=== PATIENT | female | born 1945 | race Caucasian/White ===

== ENCOUNTER 2017-07-29 15:31 | Inpatient (IN) | payer MEDICARE, BC ==
[2017-07-29] MEDS ORDERED: cloNIDine HCL 0.1 MG TAB PO STA ×2 (16:13→18:44)
--- NOTE | 2017-07-29 16:13 | ED ---
General Adult HPI - General Chief complaint: Psychiatric Symptoms Stated complaint: Confusion Time Seen by Provider: 07/29/17 15:46 Source: patient Mode of arrival: wheelchair Limitations: no limitations - History of Present Illness Initial comments: Patient is a 72-year-old female who presents with her son with concerns for unsafe living situation. The patient lives alone, does not drive, and normally takes care of herself. This was with the son reveals that the patient has been becoming more and more forgetful over the last year but the rate at which she has become forgetful and has increased over the last 2 months. The patient states that she does not know why she is here. Further conversation with the patient's son reveals that the patient's water recently stopped working. Nikita was called to come and evaluate the patient's living situation and he states that there is a problem with the patient's well and that she will not be able to have running water at her home for at least 2 or 3 months. The patient states that that is untrue and that she is hopefully will be running tomorrow. That is clearly not the case. The patient does not seem to have much insight as to what her current living situation is, nor does she have any insight into the fact that she will likely need another living arrangement in order to stay safe. Further, the patients son reveals that on several occasions he has gone over to her house to find her living area dirty, with the knobs on her furnace turned off. The house has been very cold and the patient does not realize it. The patient's son has filed for guardianship however the cannot be hearing until August. On initial evaluation, the patient appears disheveled. She is alert and oriented 2, the patient thinks that it is currently 2006. - Related Data Home Medications Medication Instructions Recorded Confirmed No Known Home Medications [No 07/29/17 07/29/17 Known Home Medications] Allergies Allergy/AdvReac Type Severity Reaction Status Date / Time No Known Allergies Allergy Verified 07/29/17 16:47 Review of Systems ROS Statement: Those systems with pertinent positive or pertinent negative responses have been documented in the HPI. ROS Other: All systems not noted in ROS Statement are negative. Past Medical History Past Medical History: No Reported History History of Any Multi-Drug Resistant Organisms: None Reported Past Surgical History: No Surgical Hx Reported Past Psychological History: No Psychological Hx Reported Smoking Status: Never smoker Past Alcohol Use History: Rare Past Drug Use History: None Reported General Exam Limitations: no limitations General appearance: alert, in no apparent distress, other (The patient appears disheveled) Head exam: Present: atraumatic, normocephalic Respiratory exam: Present: normal lung sounds bilaterally, respiratory distress Cardiovascular Exam: Present: regular rate, normal rhythm GI/Abdominal exam: Present: soft. Absent: distended, tenderness Neurological exam: Present: alert, altered (Patient is oriented to person and place, the patient states that the year is 2006), normal gait Psychiatric exam: Present: normal affect, normal mood, other (Patient is not suicidal or homicidal however the patient does not seem to have insight into the fact that she is unable to stay at her current location as there is no running water and there will not be any running water for at least 2-3 months.) Skin exam: Present: warm, dry, intact Course Vital Signs 07/29/17 07/29/17 07/29/17 15:33 16:40 17:34 Temperature 97.9 F Pulse Rate 99 94 79 Respiratory 18 16 16 Rate Blood Pressure 228/109 214/102 196/93 O2 Sat by Pulse 99 98 97 Oximetry Medical Decision Making - Medical Decision Making Patient presents with her son who is concerned for the patient's safety. History and physical examination reveals signs of undiagnosed dementia. At this time, there is concern that the patient does not have insight into her current living situation, and the need to find another place to live. Patient will not have running water for 2-3 months states that she will be fine. The patient does not have any other plan to take care of herself. Basic labs will be sent, EPS was notified. On initial evaluation, the patient appears stable however her blood pressure is hypertensive at 228/109. Patient was evaluated by psychiatry, they will not admit the patient. Blood evaluation of this patient shows evidence of urinary tract infection. Given the suspected dementia and he wants the PICC line, visual be admitted for IV antibiotics. I discussed this case with Dr. Georges who accepted admission of this patient. - Lab Data Result diagrams: 07/29/17 16:45 07/29/17 16:45 Lab Results 07/29/17 07/29/17 07/29/17 Range/Units 16:45 16:45 16:47 WBC 10.4 (3.8-10.6) k/uL RBC 5.00 (3.80-5.40) m/uL Hgb 14.7 (11.4-16.0) gm/dL Hct 46.0 (34.0-46.0) % MCV 92.0 (80.0-100.0) fL MCH 29.3 (25.0-35.0) pg MCHC 31.9 (31.0-37.0) g/dL RDW 13.2 (11.5-15.5) % Plt Count 243 (150-450) k/uL Neutrophils % 72 % Lymphocytes % 20 % Monocytes % 4 % Eosinophils % 1 % Basophils % 1 % Neutrophils # 7.5 (1.3-7.7) k/uL Lymphocytes # 2.1 (1.0-4.8) k/uL Monocytes # 0.5 (0-1.0) k/uL Eosinophils # 0.1 (0-0.7) k/uL Basophils # 0.1 (0-0.2) k/uL Sodium 136 L (137-145) mmol/L Potassium 4.6 (3.5-5.1) mmol/L Chloride 97 L (98-107) mmol/L Carbon Dioxide 26 (22-30) mmol/L Anion Gap 13 mmol/L BUN 13 (7-17) mg/dL Creatinine 0.59 (0.52-1.04) mg/dL Est GFR (MDRD) Af Amer >60 (>60 ml/min/1.73 sqM) Est GFR (MDRD) Non-Af >60 (>60 ml/min/1.73 sqM) Glucose 475 H* (74-99) mg/dL Calcium 10.2 (8.4-10.2) mg/dL Total Bilirubin 0.4 (0.2-1.3) mg/dL AST 22 (14-36) U/L ALT 34 (9-52) U/L Alkaline Phosphatase 88 (38-126) U/L Total Protein 7.8 (6.3-8.2) g/dL Albumin 4.3 (3.5-5.0) g/dL Urine Color Light Yellow Urine Appearance Cloudy H (Clear) Urine pH 5.5 (5.0-8.0) Ur Specific Loraine 1.029 (1.001-1.035) Urine Protein Negative (Negative) Urine Glucose (UA) 4+ H (Negative) Urine Ketones Negative (Negative) Urine Blood Negative (Negative) Urine Nitrite Negative (Negative) Urine Bilirubin Negative (Negative) Urine Urobilinogen <2.0 (<2.0) mg/dL Ur Leukocyte Esterase Large H (Negative) Urine RBC 22 H (0-5) /hpf Urine WBC 52 H (0-5) /hpf Ur Squamous Epith Cells 4 (0-4) /hpf Urine Bacteria Rare H (None) /hpf Urine Mucus Rare H (None) /hpf Disposition Clinical Impression: Hypertension, Hyperglycemia, Urinary tract infection [facility] Condition[facility] Good Referrals: None,Stated [Primary Care Provider] - 1-2 days Decision to Admit Reason: Admit from EC - Out of Hospital Transfer - Req. Specs Out of Hospital Transfer - Requested Specifics: Other Non-Acute
[2017-07-29 16:51] LABS: Basophils # (A) 0.1 k/uL (0-0.2); Basophils % (A) 1 %; Eosinophils # (A) 0.1 k/uL (0-0.7); Eosinophils % (A) 1 %; HGB 14.7 gm/dL (11.4-16.0); Lymphocytes # (A) 2.1 k/uL (1.0-4.8); Lymphocytes % (A) 20 %; MCH 29.3 pg (25.0-35.0); MCHC 31.9 g/dL (31.0-37.0); Mean Platelet Volume 8.2; Monocytes # (A) 0.5 k/uL (0-1.0); Monocytes % (A) 4 %; Neutrophils # (A) 7.5 k/uL (1.3-7.7); Neutrophils % (A) 72 %; Platelet Count 243 k/uL (150-450); RDW 13.2 % (11.5-15.5); WBC 10.4 k/uL (3.8-10.6)
[2017-07-29 17:01] LABS: Appearance,Urine Cloudy (Clear); Bacteria,Urine Rare /hpf; Bilirubin,Urine Negative (Negative); Blood,Urine Negative (Negative); Color,Urine Light Yellow; Glucose,Urine (UA) 4+ (Negative); Ketones,Urine Negative (Negative); Leukocyte Esterase,Urine Large (Negative); Mucus,Urine Rare /hpf; Nitrite,Urine Negative (Negative); PH, Urine 5.5 (5.0-8.0); Protein,Urine Negative (Negative); RBC,Urine 22 /hpf (0-5); Specific Gravity,Urine 1.029 (1.001-1.035); Squamous Epithelial Cell,Urine 4 /hpf (0-4); Urobilinogen,Urine <2.0 mg/dL (<2.0); WBC,Urine 52 /hpf (0-5)
[2017-07-29 17:05] LABS: ALT 34 U/L (9-52); AST 22 U/L (14-36); Albumin 4.3 g/dL (3.5-5.0); Alkaline Phosphatase 88 U/L (38-126); Anion Gap 13 mmol/L; Blood Urea Nitrogen 13 mg/dL (7-17); Calcium 10.2 mg/dL (8.4-10.2); Carbon Dioxide 26 mmol/L (22-30); Chloride 97 mmol/L (98-107); Potassium 4.6 mmol/L (3.5-5.1); Sodium 136 mmol/L (137-145); Total Bilirubin 0.4 mg/dL (0.2-1.3); Total Protein 7.8 g/dL (6.3-8.2)
[2017-07-29 17:13] LABS: Glucose 475 mg/dL (74-99)
[2017-07-29] MEDS ORDERED: NALOXONE 0.4 MG/ML 1 ML VIAL IV PRN (17:42)
[2017-07-29] MEDS ORDERED: cefTRIAXone IN SWFI 1,000 MG/10 ML SYRINGE IVP ONE (17:45)
[2017-07-29] MEDS ORDERED: ACETAMINOPHEN TAB 325 MG TAB PO PRN (18:22)
[2017-07-29] MEDS ORDERED: DONEPEZIL 5 MG TAB PO STA (18:25)
--- NOTE | 2017-07-29 18:42 | P.HPIM ---
History of Present Illness H&P Date: 07/29/17 Chief Complaint: Change in mental status 72-year-old female who presents with her son today with increasing confusion and forgetfullness. Patient has not been able to take care of herself recently. She has been having issues with her memory over the last year and a half but has not seen any physician over the last several years. Her son stated that her memory has been getting worse over the last 2 months. The patient lives alone, does not drive, a neighbor takes her to the grocery store for shopping usually. The patient states that she does not know why she is here. Most of this history was taken from her son as patient's memory and mental status preclude any meaningful history. Son reveals that the patient's water recently stopped working as the pipes froze. Nikita was called to come and evaluate the patient's living situation and he states that there is a problem with the patient's well and that she will not be able to have running water at her home for at least 2 or 3 months. The patient states that that is untrue and that is actually not the case. Further, the patients son reveals that on several occasions he has gone over to her house to find her living area dirty, with the knobs on her furnace turned off. The house has been very cold and the patient does not realize it, when asked about that she denied the house was cold even though the weather's temp is below freezing. The patient's son has filed for guardianship however the cannot be hearing until August. Patient denied having any recent illness, fevers or chills, any pain, shortness of breath, nausea or vomiting, diarrhea, no urinary symptoms. Review of Systems 12 point review of system was performed, negative except for HPI Past Medical History Past Medical History: No Reported History History of Any Multi-Drug Resistant Organisms: None Reported Past Surgical History: No Surgical Hx Reported Past Psychological History: No Psychological Hx Reported Smoking Status: Never smoker Past Alcohol Use History: Rare Past Drug Use History: None Reported - Past Family History Sister(s) Family Medical History: Dementia (Sr. from dementia) Medications and Allergies Home Medications Medication Instructions Recorded Confirmed Type No Known Home Medications [No 07/29/17 07/29/17 History Known Home Medications] Allergies Allergy/AdvReac Type Severity Reaction Status Date / Time No Known Allergies Allergy Verified 07/29/17 16:47 Physical Exam Vitals: Vital Signs Temp Pulse Resp BP Pulse Ox 07/29/17 17:34 79 16 196/93 97 07/29/17 16:40 94 16 214/102 98 07/29/17 15:33 97.9 F 99 18 228/109 99 Intake and Output 07/29/17 07/29/17 07/29/17 06:59 14:59 22:59 Other: Weight 63.503 kg Patient Weight 07/30/17 06:59 Weight 63.503 kg Constitutional: No acute distress, conversant, pleasant Eyes:Anicteric sclerae, moist conjunctiva, no lid-lag, PERRLA, ENMT: Oropharynx clear, no erythema, exudates Neck: Supple, FROM, no masses, or JVD, No carotid bruits, No thyromegaly Lungs: Clear to auscultation, Clear to percussion, Normal respiratory effort, no accessory muscle use Cardiovascular: Heart regular in rate and rhythm, No murmurs, gallops, or rubs, No peripheral edema Abdominal: Soft, Nontender, no guarding, rebound or rigidity, Normoactive bowel sounds, No hepatomegaly, No splenomegaly, No palpable mass Skin: Normal temperature, tone, texture, turgor, no induration, No subcutaneous nodules, No rash, lesions, No ulcers Extremities: No digital cyanosis, No clubbing, Pedal pulses intact and symmetrical, Radial pulses intact and symmetrical, No calf tenderness Psychiatric: Alert and oriented to person, place and time, but son reported that patient said it was 2007 earlier, appropriate affect, impaired judgement Neuro: Muscles Strength 5/5 in all 4 extremities, Sensation to light touch grossly present throughout, Cranial nerves II-XII grossly intact, no focal sensory deficits Results CBC & Chem 7: 07/29/17 16:45 07/29/17 16:45 Labs: Abnormal Lab Results - Last 24 Hours (Table) 07/29/17 07/29/17 Range/Units 16:45 16:47 Sodium 136 L (137-145) mmol/L Chloride 97 L (98-107) mmol/L Glucose 475 H* (74-99) mg/dL Urine Appearance Cloudy H (Clear) Urine Glucose (UA) 4+ H (Negative) Ur Leukocyte Esterase Large H (Negative) Urine RBC 22 H (0-5) /hpf Urine WBC 52 H (0-5) /hpf Urine Bacteria Rare H (None) /hpf Urine Mucus Rare H (None) /hpf Assessment and Plan Plan: #1 Acute delirium/metabolic encephalopathy: Likely secondary to combination of hyperglycemia and acute urinary tract infection Admit to MedSurg Labs reviewed Start ceftriaxone 1 g IV daily Urine cultures Check HbA1c, no known history of diabetes Start Lantus 10 units daily plus sliding scale insulin #2 Chronic dementia: Patient has not received any treatment for dementia, does not actually carry a diagnosis of dementia because she has not been following up with any physician for many years Start Aricept and Namenda #3 Disposition: Unsafe to go back home Son is working currently on guardianship Consult social work for placement #4 DVT prophylaxis SCDs
[2017-07-29] MEDS ORDERED: INSULIN DETEMIR 100 UNIT/ML 10 ML VIAL SQ SCH (21:00)
[2017-07-29 21:09] LABS: Glucose,Whole Blood 423 mg/dL (75-99)
[2017-07-29] MEDS: MEMANTINE 10 MG TAB PO SCH (21:25)
[2017-07-29] MEDS: INSULIN ASPART 100 UNIT/ML 1 ML 10 ML VIAL SQ SCH (21:26)
[2017-07-30 07:19] LABS: Glucose,Whole Blood 191 mg/dL (75-99)
[2017-07-30] MEDS: INSULIN ASPART 100 UNIT/ML 1 ML 10 ML VIAL SQ SCH ×5 (07:59→22:09)
[2017-07-30] MEDS: MEMANTINE 10 MG TAB PO SCH (08:48)
[2017-07-30 09:02] LABS: Basophils # (A) 0.1 k/uL (0-0.2); Basophils % (A) 1 %; Eosinophils # (A) 0.1 k/uL (0-0.7); Eosinophils % (A) 2 %; HGB 13.8 gm/dL (11.4-16.0); Lymphocytes # (A) 1.9 k/uL (1.0-4.8); Lymphocytes % (A) 23 %; MCH 29.5 pg (25.0-35.0); MCHC 32.1 g/dL (31.0-37.0); MCV 91.8 fL (80.0-100.0); Mean Platelet Volume 8.3; Monocytes # (A) 0.4 k/uL (0-1.0); Monocytes % (A) 5 %; Neutrophils # (A) 5.6 k/uL (1.3-7.7); Neutrophils % (A) 68 %; Platelet Count 229 k/uL (150-450); RBC 4.69 m/uL (3.80-5.40); RDW 12.8 % (11.5-15.5); WBC 8.3 k/uL (3.8-10.6)
[2017-07-30 09:31] LABS: Blood Urea Nitrogen 15 mg/dL (7-17); Carbon Dioxide 27 mmol/L (22-30); Chloride 99 mmol/L (98-107); Glucose 269 mg/dL (74-99); Magnesium 1.7 mg/dL (1.6-2.3); Phosphorus 3.6 mg/dL (2.5-4.5); Potassium 4.1 mmol/L (3.5-5.1)
[2017-07-30 09:48] LABS: Anion Gap 13 mmol/L; Calcium 9.4 mg/dL (8.4-10.2); Sodium 139 mmol/L (137-145)
[2017-07-30 12:11] LABS: Glucose,Whole Blood 238 mg/dL (75-99)
[2017-07-30 15:36] LABS: Hemoglobin A1C 11.4 % (4.0-6.0)
--- NOTE | 2017-07-30 15:48 | P.PN ---
Subjective Progress Note Date: 07/30/17 Principal diagnosis: Confusion. Still confused Objective - Vital Signs Vital signs: Vital Signs Temp 98.1 F 07/30/17 07:00 Pulse 75 07/30/17 08:00 Resp 18 07/30/17 08:00 BP 182/87 07/30/17 07:00 Pulse Ox 96 07/30/17 07:00 Intake & Output 07/29/17 07/30/17 07/30/17 18:59 06:59 18:59 Intake Total 240 Balance 240 Weight 63.503 kg Intake: Oral 240 Other: # Voids 2 - Exam Constitutional: No acute distress, conversant, pleasant Eyes:Anicteric sclerae, moist conjunctiva, no lid-lag, PERRLA, ENMT: Oropharynx clear, no erythema, exudates Neck: Supple, FROM, no masses, or JVD, No carotid bruits, No thyromegaly Lungs: Clear to auscultation, Clear to percussion, Normal respiratory effort, no accessory muscle use Cardiovascular: Heart regular in rate and rhythm, No murmurs, gallops, or rubs, No peripheral edema Abdominal: Soft, Nontender, no guarding, rebound or rigidity, Normoactive bowel sounds, No hepatomegaly, No splenomegaly, No palpable mass Skin: Normal temperature, tone, texture, turgor, no induration, No subcutaneous nodules, No rash, lesions, No ulcers Extremities: No digital cyanosis, No clubbing, Pedal pulses intact and symmetrical, Radial pulses intact and symmetrical, No calf tenderness Psychiatric: Alert and oriented to person, place and time, but son reported that patient said it was 2007 earlier, appropriate affect, impaired judgement Neuro: Muscles Strength 5/5 in all 4 extremities, Sensation to light touch grossly present throughout, Cranial nerves II-XII grossly intact, no focal sensory deficits - Labs CBC & Chem 7: 07/30/17 08:30 07/30/17 08:30 Labs: Abnormal Lab Results - Last 24 Hours (Table) 07/29/17 07/29/17 07/29/17 Range/Units 16:45 16:47 21:08 Sodium 136 L (137-145) mmol/L Chloride 97 L (98-107) mmol/L Glucose 475 H* (74-99) mg/dL POC Glucose (mg/dL) 423 H (75-99) mg/dL Urine Appearance Cloudy H (Clear) Urine Glucose (UA) 4+ H (Negative) Ur Leukocyte Esterase Large H (Negative) Urine RBC 22 H (0-5) /hpf Urine WBC 52 H (0-5) /hpf Urine Bacteria Rare H (None) /hpf Urine Mucus Rare H (None) /hpf 07/30/17 07/30/17 07/30/17 Range/Units 07:17 08:30 12:07 Sodium (137-145) mmol/L Chloride (98-107) mmol/L Glucose 269 H (74-99) mg/dL POC Glucose (mg/dL) 191 H 238 H (75-99) mg/dL Urine Appearance (Clear) Urine Glucose (UA) (Negative) Ur Leukocyte Esterase (Negative) Urine RBC (0-5) /hpf Urine WBC (0-5) /hpf Urine Bacteria (None) /hpf Urine Mucus (None) /hpf Microbiology - Last 24 Hours (Table) 07/29/17 17:37 Urine Culture - Preliminary Urine,Voided Assessment and Plan Plan: #1 Acute delirium/metabolic encephalopathy: Likely secondary to combination of hyperglycemia and acute urinary tract infection Improving Labs reviewed Continue ceftriaxone 1 g IV daily Follow urine cultures Check HbA1c, no known history of diabetes Increase Lantus to 12 units daily plus start Insulin aspart 5 units tid. Continue sliding scale insulin with blood sugar checks every AC and HS #2 Accelerated HTN: Start lisinopril/HCTZ 10/12.5 mg daily. #2 Chronic dementia: Continue Aricept and Namenda #3 Disposition: Unsafe to go back home Son has a court appointment for guardianship tomorrow. Social work for placement #4 DVT prophylaxis SCDs
[2017-07-30] MEDS: LISINOPRIL-HCTZ 10-12.5 MG 1 EACH TAB PO SCH (16:26)
[2017-07-30] MEDS: cefTRIAXone IN SWFI 1,000 MG/10 ML SYRINGE IVP SCH (16:42)
[2017-07-30 17:27] LABS: Glucose,Whole Blood 213 mg/dL (75-99)
[2017-07-30 20:54] LABS: Glucose,Whole Blood 173 mg/dL (75-99)
[2017-07-30] MEDS: INSULIN DETEMIR 100 UNIT/ML 10 ML VIAL SQ SCH (22:00)
[2017-07-30] MEDS ORDERED: HALOPERIDOL 1 MG TAB PO STA (23:54)
[2017-07-31 07:30] LABS: Glucose,Whole Blood 168 mg/dL (75-99)
[2017-07-31] MEDS: LISINOPRIL-HCTZ 10-12.5 MG 1 EACH TAB PO SCH (08:03)
[2017-07-31] MEDS: MEMANTINE 10 MG TAB PO SCH (08:03)
[2017-07-31] MEDS: INSULIN ASPART 100 UNIT/ML 1 ML 10 ML VIAL SQ SCH ×7 (08:03→22:04)
--- NOTE | 2017-07-31 08:59 | CDI ---
Last Revision, June 2017 Documentation Clarification Form Date: 07/31/2017 7:49:00 AM From: Gauri Phipps Admit Date: 07/29/2017 5:42:00 PM Patient Name: Jacqueline Del Valle Visit Number: [id number] ATTENTION: The Clinical Documentation Specialists (CDI) and [facility] Coding Staff appreciate your assistance in clarifying documentation. Please respond to the clarification below the line at the bottom and electronically sign. The CDI & [facility] Coding staff will review the response and follow-up if needed. Please note: Queries are made part of the Legal Health Record. If you have any questions, please contact the author of this message via ITS. Dr. Wendy Georges, Hyperglycemia was charted in the H&P on 07/29/17 and in the progress note on . History/Risk Factors: no known history of diabetes, HTN, dementia Clinical Indicators: Documented 'acute delirium/metabolic encephalopathy likely secondary to combination of hyperglycemia and ac uti' Labs: glucose 475 on admission, Hgb A1c 11.4 UA: 4+ glucose Treatment: Lantus ordered daily and being adjusted Novolog sliding scale ordered AC and HS blood sugar checks Consult to [employer] Consistent Carbohydrate Diet In order to capture the severity of Illness and necessary documentation specificity, please clarify: new onset DM Type 1 new onset DM Type 2 Other, please specify Unable to Determine Please continue to document in your progress notes and discharge summary in order to capture severity of illness and risk of mortality. Include clinical findings that support your diagnosis. Type II diabetes MTDD
[2017-07-31 09:08] LABS: HCT 43.8 % (34.0-46.0); HGB 14.5 gm/dL (11.4-16.0); MCH 29.7 pg (25.0-35.0); MCHC 33.1 g/dL (31.0-37.0); MCV 89.8 fL (80.0-100.0); Mean Platelet Volume 8.6; Platelet Count 268 k/uL (150-450); RBC 4.88 m/uL (3.80-5.40); RDW 12.4 % (11.5-15.5); WBC 13.2 k/uL (3.8-10.6)
[2017-07-31 09:24] LABS: Anion Gap 10 mmol/L; Blood Urea Nitrogen 18 mg/dL (7-17); Carbon Dioxide 30 mmol/L (22-30); Chloride 97 mmol/L (98-107); Glucose 246 mg/dL (74-99); Magnesium 1.8 mg/dL (1.6-2.3); Phosphorus 4.6 mg/dL (2.5-4.5); Sodium 137 mmol/L (137-145)
[2017-07-31 10:22] VITALS: BMI 23.3
[2017-07-31 13:03] LABS: Glucose,Whole Blood 232 mg/dL (75-99)
[2017-07-31] MEDS: cefTRIAXone IN SWFI 1,000 MG/10 ML SYRINGE IVP SCH (16:59)
[2017-07-31 17:08] LABS: Glucose,Whole Blood 216 mg/dL (75-99)
[2017-07-31 20:48] LABS: Glucose,Whole Blood 143 mg/dL (75-99)
[2017-07-31] MEDS: INSULIN DETEMIR 100 UNIT/ML 10 ML VIAL SQ SCH (22:05)
[2017-08-01 00:21] VITALS: RESP 16
[2017-08-01 07:19] LABS: Glucose,Whole Blood 157 mg/dL (75-99)
[2017-08-01] MEDS: MEMANTINE 10 MG TAB PO SCH (07:52)
[2017-08-01] MEDS: INSULIN ASPART 100 UNIT/ML 1 ML 10 ML VIAL SQ SCH ×4 (07:52→12:36)
[2017-08-01] MEDS: LISINOPRIL-HCTZ 10-12.5 MG 1 EACH TAB PO SCH (07:52)
[2017-08-01 08:01] VITALS: BP 114/65; PULSE 85; TEMP 98.2
--- NOTE | 2017-08-01 11:18 | P.DS ---
Providers Date of admission: 07/29/17 17:42 Expected date of discharge: 08/01/17 Attending physician: Wendy Georges MD Primary care physician: Stated None Hospital Course: 72 year old female with poor OP follow up and has not seen a physician for 7 years now, presented due to worsening confusion and forgetfulness, per the patient's son her living situation has been deteriorating, patient lives alone and gets some assistance from the neighbor to go to the grocery stores. However patient's son reports that her house is usually filthy, and he had multiple incidences where he would find furnaces off, or patient's not having running water for maintenance and frozen pipes. The house would be freezing cold and generally improved for situation with the patient relies. Patient has no insight about the above problems, she cannot comment when asked regarding orientation she is confused regarding her place, time. Her son is in the process of getting guardianship papers. Patient initial workup in the ER suggested Acute urinary tract infection resulting in acute metabolic encephalopathy. This was treated with Rocephin, urine cultures were contaminated. Patient has received 3 days of Rocephin. Acute metabolic encephalopathy secondary to underlying infection New-onset diabetes mellitus type 2 with A1c of 11.4 requiring insulin therapy for now New onset hypertension patient was started on antihypertensive medications Cognitive impairment possibly underlying dementia, patient will need to be evaluated as an outpatient by neurology or parachute packer in 1-2 weeks postdischarge once she is back to her baseline Patient was seen and examined on day of discharge, she is pleasantly confused denies any chest pain or trouble breathing denies any headache denies any abdominal pain nausea or vomiting. She is tolerating her diet and actually eating all the meals that's provided. Denies any problems with urination or bowel movement. Constitutional: vital signs stable, Not in acute distress, pleasant, conversant Lungs: Clear to auscultation bilaterally, clear to percussion, normal respiratory effort no use of accessory muscles Cardiovascular: Regular rate and rhythm, no murmurs, no gallops, no rubs, no peripheral edema Gastrointestinal: Soft, no tenderness to palpation, no palpable hepatosplenomegally, bowel sounds positive Extremities: No digital cyanosis or clubbing, peripheral pulses palpable and equal over bilateral radial arteries and dorsalis pedis artery, no calf muscle tenderness Psych: Alert, oriented to person only Patient to see if her last visit of Samantha today prior to discharge, later will be discharged to [facility], son obtaining guardianship papers Continue on insulin therapy for new onset diabetes Patient is being discharged in stable clinical condition 42 minutes were spent discharging this patient, and more than 50% of the time was spent in counseling the patient and family and in coordinating care. Patient Condition at Discharge: Stable Plan - Discharge Summary New Discharge Prescriptions: New Insulin Aspart [NovoLOG (formulary)] 5 unit SQ AC-TID vial Insulin Aspart [NovoLOG (formulary)] 0 unit SQ ACHS vial Insulin Detemir [Levemir] 12 unit SQ HS syr Lisinopril-Hctz 10-12.5 mg [Zestoretic 10-12.5] 1 each PO DAILY tab Memantine [Namenda] 10 mg PO DAILY tab Discharge Medication List Insulin Aspart [NovoLOG (formulary)] 0 unit SQ ACHS vial 08/01/17 [Rx] Insulin Aspart [NovoLOG (formulary)] 5 unit SQ AC-TID vial 08/01/17 [Rx] Insulin Detemir [Levemir] 12 unit SQ HS syr 08/01/17 [Rx] Lisinopril-Hctz 10-12.5 mg [Zestoretic 10-12.5] 1 each PO DAILY tab 08/01/17 [ Rx] Memantine [Namenda] 10 mg PO DAILY tab 08/01/17 [Rx] Follow up Appointment(s)/Referral(s): None,Stated [Primary Care Provider] - 1-2 days Patient Instructions/Handouts: Dementia (GEN), How to Check Your Blood Sugar ( GEN), Foot Care for People with Diabetes (GEN), Type 2 Diabetes in Adults (GEN) , Basic Carbohydrate Counting (GEN), DASH Eating Plan (GEN), Hypertension (DC) Activity/Diet/Wound Care/Special Instructions: activity as tolerated diabetic diet Discharge Disposition: TRANSFER TO SNF/ECF
[2017-08-01] MEDS ORDERED: cefTRIAXone IN SWFI 1,000 MG/10 ML SYRINGE IVP SCH (12:00)
[2017-08-01 12:34] LABS: Glucose,Whole Blood 186 mg/dL (75-99)
== END 2017-08-01 15:09 | DRG 689 ==
LOC: EC 15:31 → EEVIPCON 17:42 → 4MS4W 17:42
PROVIDERS: ADMIT Internal Medicine; ATTEND Internal Medicine
DX: N39.0 Urinary tract infection, site not specified (principal); G93.41 Metabolic encephalopathy; E11.65 Type 2 diabetes mellitus with hyperglycemia; F05 Delirium due to known physiological condition; I10 Essential (primary) hypertension; Z79.4 Long term (current) use of insulin; Z82.0 Family history of epilepsy and other diseases of the nervous system; F03.90 Unspecified dementia, unspecified severity, without behavioral disturbance, psychotic disturbance, mood disturbance, and anxiety
CPT/HCPCS: 36415; 80048; 80053; 81001; 82075; 83036; 83735; 84100; 85025; 85027; 87086; 96374; 99285

== ENCOUNTER 2017-09-11 08:30 | Inpatient (IN) | payer MEDICARE, BC ==
[2017-09-11] MEDS ORDERED: ACETAMINOPHEN TAB 500 MG TAB PO STA (09:00)
[2017-09-11] MEDS ORDERED: IBUPROFEN 600 MG TAB PO STA (09:00)
--- NOTE | 2017-09-11 09:04 | ED ---
General Adult HPI - General Chief complaint: Nausea/Vomiting/Diarrhea Stated complaint: Flu symptoms Time Seen by Provider: 09/11/17 08:50 Source: patient, RN notes reviewed, old records reviewed Mode of arrival: EMS Limitations: no limitations - History of Present Illness Initial comments: This patient is a 72-year-old female presents emergency department today chief complaint of fever, weakness, episodes of nausea and vomiting. Patient currently lives in a adult foster facility. Patient reports that she has no specific pain at this time, denies any chest pain or shortness of breath. She denies any specific abdominal pain. Patient reports that she has little appetite.Patient denies any recent shortness of breath, chest pain, back pain, abdominal pain, nausea vomiting, numbness or tingling, dysuria or hematuria, constipation or diarrhea, headaches or visual changes, or any other current symptoms. - Related Data Home Medications Medication Instructions Recorded Confirmed ALPRAZolam [Xanax] 0.25 mg PO DAILY PRN 09/11/17 09/11/17 Cyanocobalamin (Vitamin B-12) 1,000 mcg PO DAILY 09/11/17 09/11/17 [Vitamin B-12] Ear Drops 6.5% Soln 1 drop BOTH EARS TID 09/11/17 09/11/17 Ergocalciferol [Vitamin D2] 50,000 unit PO MOON 09/11/17 09/11/17 Insulin Aspart [NovoLOG 7 unit SQ AC-TID 09/11/17 09/11/17 (formulary)] Insulin Detemir [Levemir] 20 unit SQ HS 09/11/17 09/11/17 Levothyroxine Sodium [Synthroid] 25 mcg PO DAILY 09/11/17 09/11/17 Lisinopril-Hctz 10-12.5 mg 1 tab PO DAILY 09/11/17 09/11/17 [Zestoretic 10-12.5] Previous Rx's Medication Instructions Recorded Memantine [Namenda] 10 mg PO DAILY tab 08/01/17 Allergies Allergy/AdvReac Type Severity Reaction Status Date / Time No Known Allergies Allergy Verified 09/11/17 08:48 Review of Systems ROS Statement: Those systems with pertinent positive or pertinent negative responses have been documented in the HPI. ROS Other: All systems not noted in ROS Statement are negative. Past Medical History Past Medical History: Diabetes Mellitus, Hyperlipidemia, Hypertension History of Any Multi-Drug Resistant Organisms: VRE Date of last positivie culture/infection: 08/04/17 MDRO Source:: VRE URINE Past Surgical History: No Surgical Hx Reported Past Psychological History: No Psychological Hx Reported Smoking Status: Never smoker Past Alcohol Use History: Rare Past Drug Use History: None Reported - Past Family History Sister(s) Family Medical History: Dementia General Exam - General Exam Comments Initial Comments: 72-year-old female. No distress. Limitations: no limitations General appearance: alert, in no apparent distress Head exam: Present: atraumatic, normocephalic, normal inspection Eye exam: Present: normal appearance, PERRL, EOMI. Absent: scleral icterus, conjunctival injection, periorbital swelling ENT exam: Present: normal exam, mucous membranes moist Neck exam: Present: normal inspection. Absent: tenderness, meningismus, lymphadenopathy Respiratory exam: Present: normal lung sounds bilaterally. Absent: respiratory distress, wheezes, rales, rhonchi, stridor Cardiovascular Exam: Present: regular rate, normal rhythm, normal heart sounds. Absent: systolic murmur, diastolic murmur, rubs, gallop, clicks GI/Abdominal exam: Present: soft, normal bowel sounds. Absent: distended, tenderness, guarding, rebound, rigid Extremities exam: Present: normal inspection, full ROM, normal capillary refill. Absent: tenderness, pedal edema, joint swelling, calf tenderness Back exam: Present: normal inspection Neurological exam: Present: alert, CN II-XII intact. Absent: oriented X3 ( Patient is oriented to name and place. She reports that the year 2006. Upon review previous chart this is been patient's previous statement.) Psychiatric exam: Present: normal affect, normal mood Course Vital Signs 09/11/17 09/11/17 09/11/17 08:43 10:48 11:45 Temperature 101.0 F H 99.3 F Pulse Rate 90 83 89 Respiratory 16 Rate Blood Pressure 130/69 O2 Sat by Pulse 96 Oximetry 09/11/17 09/11/17 11:48 11:56 Temperature Pulse Rate 90 90 Respiratory 20 Rate Blood Pressure 120/59 O2 Sat by Pulse 100 Oximetry - Reevaluation(s) Reevaluation #1: 09/11/17 11:38 Patient was reevaluated and reports that she's feeling much better after receiving fluids and Motrin Tylenol. Patient's son is at bedside. He reports that he was at her yesterday in the adult [facility] assisted and patient was doing well. Patient has had no episodes of vomiting or diarrhea in the emergency department. EKG Findings - EKG Comments: EKG Findings:: EKG shows sinus rhythm, left axis deviation. Possible anterior infarct. T-wave abnormality considering lateral ischemia. Ventricular rate of 94 bpm. SC interval 136 most seconds. QRS ration 100 ms. QT QTc is 424/5:30 milliseconds. Medical Decision Making - Medical Decision Making This patient is 72-year-old female presents emergency Department via EMS chief complaint of multiple episodes of vomiting and diarrhea over the past day. Patient arrives with a fever of 101. She was given Motrin Tylenol started on IV fluids. Blood culture and lactic acid obtained. Patient's white blood cell count is within normal limits, her urinalysis shows no signs of infection. She denies any chest pain shortness of breath or any abdominal pain. She reports she feels better after seeing Motrin Tylenol and the fluids. At this time patient's EKG did show some T-wave abnormality. Troponin was added. As noted the troponin is mildly elevated at 0.047. Patient continues to deny any chest pain. At this time patient will be admitted for elevated troponin and serial troponins, and I did start her on Levaquin for a pneumonia noted in the chest x- ray. Patient's son was in agreement of this plan. - Lab Data Result diagrams: 09/11/17 09:45 09/11/17 09:45 Lab Results 09/11/17 09/11/17 09/11/17 Range/Units 09:45 09:45 09:45 WBC 5.9 (3.8-10.6) k/uL RBC 4.16 (3.80-5.40) m/uL Hgb 12.6 (11.4-16.0) gm/dL Hct 37.2 (34.0-46.0) % MCV 89.2 (80.0-100.0) fL MCH 30.4 (25.0-35.0) pg MCHC 34.0 (31.0-37.0) g/dL RDW 11.3 L (11.5-15.5) % Plt Count 221 (150-450) k/uL Neutrophils % 84 % Lymphocytes % 2 % Monocytes % 11 % Eosinophils % 1 % Basophils % 1 % Neutrophils # 4.9 (1.3-7.7) k/uL Lymphocytes # 0.1 L (1.0-4.8) k/uL Monocytes # 0.7 (0-1.0) k/uL Eosinophils # 0.0 (0-0.7) k/uL Basophils # 0.1 (0-0.2) k/uL Manual Slide Review Performed RBC Morphology Normal PT (9.0-12.0) sec INR (<1.2) APTT (22.0-30.0) sec Sodium 124 L (137-145) mmol/L Potassium 4.2 (3.5-5.1) mmol/L Chloride 89 L (98-107) mmol/L Carbon Dioxide 25 (22-30) mmol/L Anion Gap 10 mmol/L BUN 17 (7-17) mg/dL Creatinine 0.80 (0.52-1.04) mg/dL Est GFR (MDRD) Af Amer >60 (>60 ml/min/1.73 sqM) Est GFR (MDRD) Non-Af >60 (>60 ml/min/1.73 sqM) Glucose 93 (74-99) mg/dL Plasma Lactic Acid Manjinder (0.7-2.0) mmol/L Calcium 8.9 (8.4-10.2) mg/dL Total Bilirubin 0.3 (0.2-1.3) mg/dL AST 41 H (14-36) U/L ALT 22 (9-52) U/L Alkaline Phosphatase 57 (38-126) U/L Troponin I (0.000-0.034) ng/mL Total Protein 6.8 (6.3-8.2) g/dL Albumin 3.7 (3.5-5.0) g/dL Urine Color Urine Appearance (Clear) Urine pH (5.0-8.0) Ur Specific [place] (1.001-1.035) Urine Protein (Negative) Urine Glucose (UA) (Negative) Urine Ketones (Negative) Urine Blood (Negative) Urine Nitrite (Negative) Urine Bilirubin (Negative) Urine Urobilinogen (<2.0) mg/dL Ur Leukocyte Esterase (Negative) Urine RBC (0-5) /hpf Urine WBC (0-5) /hpf Ur Squamous Epith Cells (0-4) /hpf Urine Bacteria (None) /hpf Influenza Type A RNA Not Detected (Not Detectd) Influenza Type B (PCR) Not Detected (Not Detectd) 09/11/17 09/11/17 09/11/17 Range/Units 09:45 09:45 09:45 WBC (3.8-10.6) k/uL RBC (3.80-5.40) m/uL Hgb (11.4-16.0) gm/dL Hct (34.0-46.0) % MCV (80.0-100.0) fL MCH (25.0-35.0) pg MCHC (31.0-37.0) g/dL RDW (11.5-15.5) % Plt Count (150-450) k/uL Neutrophils % % Lymphocytes % % Monocytes % % Eosinophils % % Basophils % % Neutrophils # (1.3-7.7) k/uL Lymphocytes # (1.0-4.8) k/uL Monocytes # (0-1.0) k/uL Eosinophils # (0-0.7) k/uL Basophils # (0-0.2) k/uL Manual Slide Review RBC Morphology PT 10.2 (9.0-12.0) sec INR 1.0 (<1.2) APTT 24.9 (22.0-30.0) sec Sodium (137-145) mmol/L Potassium (3.5-5.1) mmol/L Chloride (98-107) mmol/L Carbon Dioxide (22-30) mmol/L Anion Gap mmol/L BUN (7-17) mg/dL Creatinine (0.52-1.04) mg/dL Est GFR (MDRD) Af Amer (>60 ml/min/1.73 sqM) Est GFR (MDRD) Non-Af (>60 ml/min/1.73 sqM) Glucose (74-99) mg/dL Plasma Lactic Acid Manjinder 0.8 (0.7-2.0) mmol/L Calcium (8.4-10.2) mg/dL Total Bilirubin (0.2-1.3) mg/dL AST (14-36) U/L ALT (9-52) U/L Alkaline Phosphatase (38-126) U/L Troponin I 0.047 H* (0.000-0.034) ng/mL Total Protein (6.3-8.2) g/dL Albumin (3.5-5.0) g/dL Urine Color Urine Appearance (Clear) Urine pH (5.0-8.0) Ur Specific [place] (1.001-1.035) Urine Protein (Negative) Urine Glucose (UA) (Negative) Urine Ketones (Negative) Urine Blood (Negative) Urine Nitrite (Negative) Urine Bilirubin (Negative) Urine Urobilinogen (<2.0) mg/dL Ur Leukocyte Esterase (Negative) Urine RBC (0-5) /hpf Urine WBC (0-5) /hpf Ur Squamous Epith Cells (0-4) /hpf Urine Bacteria (None) /hpf Influenza Type A RNA (Not Detectd) Influenza Type B (PCR) (Not Detectd) 09/11/17 Range/Units 11:00 WBC (3.8-10.6) k/uL RBC (3.80-5.40) m/uL Hgb (11.4-16.0) gm/dL Hct (34.0-46.0) % MCV (80.0-100.0) fL MCH (25.0-35.0) pg MCHC (31.0-37.0) g/dL RDW (11.5-15.5) % Plt Count (150-450) k/uL Neutrophils % % Lymphocytes % % Monocytes % % Eosinophils % % Basophils % % Neutrophils # (1.3-7.7) k/uL Lymphocytes # (1.0-4.8) k/uL Monocytes # (0-1.0) k/uL Eosinophils # (0-0.7) k/uL Basophils # (0-0.2) k/uL Manual Slide Review RBC Morphology PT (9.0-12.0) sec INR (<1.2) APTT (22.0-30.0) sec Sodium (137-145) mmol/L Potassium (3.5-5.1) mmol/L Chloride (98-107) mmol/L Carbon Dioxide (22-30) mmol/L Anion Gap mmol/L BUN (7-17) mg/dL Creatinine (0.52-1.04) mg/dL Est GFR (MDRD) Af Amer (>60 ml/min/1.73 sqM) Est GFR (MDRD) Non-Af (>60 ml/min/1.73 sqM) Glucose (74-99) mg/dL Plasma Lactic Acid Manjinder (0.7-2.0) mmol/L Calcium (8.4-10.2) mg/dL Total Bilirubin (0.2-1.3) mg/dL AST (14-36) U/L ALT (9-52) U/L Alkaline Phosphatase (38-126) U/L Troponin I (0.000-0.034) ng/mL Total Protein (6.3-8.2) g/dL Albumin (3.5-5.0) g/dL Urine Color Light Yellow Urine Appearance Clear (Clear) Urine pH 6.5 (5.0-8.0) Ur Specific [place] 1.006 (1.001-1.035) Urine Protein Negative (Negative) Urine Glucose (UA) Negative (Negative) Urine Ketones Trace H (Negative) Urine Blood Negative (Negative) Urine Nitrite Negative (Negative) Urine Bilirubin Negative (Negative) Urine Urobilinogen <2.0 (<2.0) mg/dL Ur Leukocyte Esterase Trace H (Negative) Urine RBC <1 (0-5) /hpf Urine WBC 1 (0-5) /hpf Ur Squamous Epith Cells <1 (0-4) /hpf Urine Bacteria Occasional H (None) /hpf Influenza Type A RNA (Not Detectd) Influenza Type B (PCR) (Not Detectd) - Radiology Data Radiology results: report reviewed Borderline heart size, interstitial densities could reflect bronchitis asthma or atypical pneumonia. Were patchy atelectasis in her early infiltrate at the local peripheral left. Disposition Clinical Impression: Pneumonia, Elevated troponin Disposition: ADMITTED IP TO THIS HOSP Condition: Stable Referrals: None,Stated [REFERRING] - 1-2 days Time of Disposition: 12:15
[2017-09-11] MEDS: SODIUM CHLORIDE 0.9% 500 ML IV SCH ×2 (09:39→09:40)
[2017-09-11 10:19] LABS: Basophils # (A) 0.1 k/uL (0-0.2); Basophils % (A) 1 %; Eosinophils % (A) 1 %; HCT 37.2 % (34.0-46.0); HGB 12.6 gm/dL (11.4-16.0); Lymphocytes # (A) 0.1 k/uL (1.0-4.8); Lymphocytes % (A) 2 %; MCH 30.4 pg (25.0-35.0); MCV 89.2 fL (80.0-100.0); Mean Platelet Volume 6.9; Monocytes # (A) 0.7 k/uL (0-1.0); Monocytes % (A) 11 %; Neutrophils # (A) 4.9 k/uL (1.3-7.7); Neutrophils % (A) 84 %; Platelet Count 221 k/uL (150-450); RBC 4.16 m/uL (3.80-5.40); RDW 11.3 % (11.5-15.5); WBC 5.9 k/uL (3.8-10.6)
[2017-09-11 10:22] LABS: ALT 22 U/L (9-52); AST 41 U/L (14-36); Albumin 3.7 g/dL (3.5-5.0); Alkaline Phosphatase 57 U/L (38-126); Anion Gap 10 mmol/L; Blood Urea Nitrogen 17 mg/dL (7-17); Calcium 8.9 mg/dL (8.4-10.2); Carbon Dioxide 25 mmol/L (22-30); Chloride 89 mmol/L (98-107); Glucose 93 mg/dL (74-99); Potassium 4.2 mmol/L (3.5-5.1); Sodium 124 mmol/L (137-145); Total Bilirubin 0.3 mg/dL (0.2-1.3); Total Protein 6.8 g/dL (6.3-8.2)
[2017-09-11 10:25] LABS: Partial Thromboplastin Time 24.9 sec (22.0-30.0); Prothrombin Time 10.2 sec (9.0-12.0)
--- NOTE | 2017-09-11 10:29 | XR ---
EXAMINATION TYPE: XR chest 2V DATE OF EXAM: 09/11/2017 COMPARISON: None HISTORY: 72 year-old female nausea, vomiting, fever TECHNIQUE: AP and lateral views FINDINGS: Heart borderline enlarged. Mild elongation of thoracic aorta. Diffuse interstitial and perihilar dens ities. Some patchy peripheral left basilar density. No pleural effusion. IMPRESSION: 1. Borderline heart size. 2. Interstitial densities could reflect bronchitis, asthma, or atypical pneumonias. 3. More patchy atelectasis or early infiltrate at the peripheral left
[2017-09-11] MEDS ORDERED: LEVOFLOXACIN 750MG-D5W PMX 750 MG in DEXTROSE/WATER 1 150ML.BAG IVPB STA (10:50)
[2017-09-11 11:16] LABS: Appearance,Urine Clear (Clear); Bacteria,Urine Occasional /hpf; Bilirubin,Urine Negative (Negative); Blood,Urine Negative (Negative); Color,Urine Light Yellow; Glucose,Urine (UA) Negative (Negative); Ketones,Urine Trace (Negative); Leukocyte Esterase,Urine Trace (Negative); Nitrite,Urine Negative (Negative); PH, Urine 6.5 (5.0-8.0); Protein,Urine Negative (Negative); RBC,Urine <1 /hpf (0-5); Specific Gravity,Urine 1.006 (1.001-1.035); Squamous Epithelial Cell,Urine <1 /hpf (0-4); Urobilinogen,Urine <2.0 mg/dL (<2.0); WBC,Urine 1 /hpf (0-5)
[2017-09-11] MEDS ORDERED: IPRATROPIUM-ALBUTEROL 3 ML NEB INHALATION STA (11:40)
[2017-09-11] MEDS ORDERED: NITROGLYCERIN SL TABS 0.4 MG TAB SUBLINGUAL PRN (12:17)
[2017-09-11] MEDS ORDERED: ASPIRIN 81 MG PO STA (12:17)
[2017-09-11] MEDS: SODIUM CHLORIDE 0.9% 1,000 ML IV SCH ×2 (13:01→19:46)
[2017-09-11 15:46] LABS: Glucose,Whole Blood 94 mg/dL (75-99)
[2017-09-11 15:59] LABS: Creatine Kinase MB 3.7 ng/mL (0.0-2.4); Troponin I 0.056 ng/mL (0.000-0.034)
--- NOTE | 2017-09-11 19:19 | P.HPIM ---
History of Present Illness 72-year-old female presents emergency department today chief complaint of fever , weakness, episodes of nausea and vomiting. Patient currently lives in a adult foster facility. Patient reports that she has no specific pain at this time, denies any chest pain or shortness of breath. She denies any specific abdominal pain. Patient reports that she has little appetite.Patient denies any recent shortness of breath, chest pain, back pain, abdominal pain, nausea vomiting, numbness or tingling, dysuria or hematuria, constipation or diarrhea, headaches or visual changes, or any other current symptoms. Patient chest x- ray was suspicious for bronchitis although patient does not have any symptoms of pneumonia bronchitis patient does not have any wheezing on exam. Patient was given a dose of antibiotic and do not believe and medics need to be continued. Her diarrhea completely resolved if she can use to have diarrhea we' ll obtain a C. diff testing patient and was recently treated for enterococcal urinary tract infection. Patient denied any dysuria patient is not a reliable historian because of her moderate to severe dementia, patient is alert oriented 1-2 which is her baseline lives and lives at adult foster [facility]. Patient had a minimal troponin elevation because of which 2 more repeat troponins are being obtained. Patient denied any chest pain Review of Systems REVIEW OF SYSTEMS: CONSTITUTIONAL: No fever, no malaise, no fatigue. HEENT: No recent visual problems or hearing problems. Denied any sore throat. CARDIOVASCULAR: No chest pain, orthopnea, PND, no palpitations, no syncope. PULMONARY: No shortness of breath, no cough, no hemoptysis. GASTROINTESTINAL: no abdominal pain. NEUROLOGICAL: No headaches, no weakness, no numbness. HEMATOLOGICAL: Denies any bleeding or petechiae. GENITOURINARY: Denies any burning micturition, frequency, or urgency. MUSCULOSKELETAL/RHEUMATOLOGICAL: Denies any joint pain, swelling, or any muscle pain. ENDOCRINE: Denies any polyuria or polydipsia. The rest of the 14-point review of systems is negative. Past Medical History Past Medical History: Dementia, Diabetes Mellitus, Hypertension Additional Past Medical History / Comment(s): Pt recently admitted to [facility] on 07/29/17 with UTI/confusion d/t UTI or dementia, new onset diabetes. Other hx: hypothyroid. History of Any Multi-Drug Resistant Organisms: VRE Date of last positivie culture/infection: 08/04/17 MDRO Source:: VRE URINE Past Surgical History: No Surgical Hx Reported Additional Past Anesthesia/Blood Transfusion Reaction / Comment(s): Pt has never had surgery before Past Psychological History: No Psychological Hx Reported Additional Psychological History / Comment(s): Pt resides at [facility]. She ambulates with a walker. Her son, Karl Lobato is her legal gaurdian. Smoking Status: Never smoker Past Alcohol Use History: Rare Past Drug Use History: None Reported - Past Family History Sister(s) Family Medical History: Dementia Medications and Allergies Home Medications Medication Instructions Recorded Confirmed Type Memantine [Namenda] 10 mg PO DAILY tab 08/01/17 09/11/17 Rx ALPRAZolam [Xanax] 0.25 mg PO DAILY PRN 09/11/17 09/11/17 History Cyanocobalamin (Vitamin B-12) 1,000 mcg PO DAILY 09/11/17 09/11/17 History [Vitamin B-12] Ear Drops 6.5% Soln 1 drop BOTH EARS TID 09/11/17 09/11/17 History Ergocalciferol [Vitamin D2] 50,000 unit PO OMON 09/11/17 09/11/17 History Insulin Aspart [NovoLOG 7 unit SQ AC-TID 09/11/17 09/11/17 History (formulary)] Insulin Detemir [Levemir] 20 unit SQ HS 09/11/17 09/11/17 History Levothyroxine Sodium [Synthroid] 25 mcg PO DAILY 09/11/17 09/11/17 History Lisinopril-Hctz 10-12.5 mg 1 tab PO DAILY 09/11/17 09/11/17 History [Zestoretic 10-12.5] Allergies Allergy/AdvReac Type Severity Reaction Status Date / Time No Known Allergies Allergy Verified 09/11/17 08:48 Physical Exam Vitals: Vital Signs Temp Pulse Pulse Resp BP BP Pulse Ox 09/11/17 18:47 98.4 F 84 16 147/75 100 09/11/17 18:13 98.1 F 83 20 148/70 96 09/11/17 15:00 97.3 F L 72 20 132/56 99 09/11/17 11:56 90 09/11/17 11:48 90 20 120/59 100 09/11/17 11:45 89 09/11/17 10:48 99.3 F 83 16 130/69 96 09/11/17 08:43 101.0 F H 90 Intake and Output 09/11/17 09/11/17 09/11/17 06:59 14:59 22:59 Other: Voiding Method Toilet Weight 74 kg Patient Weight 09/12/17 06:59 Weight 74 kg PHYSICAL EXAMINATION: GENERAL: The patient is alert and oriented x1, not in any acute distress. Well developed, well nourished. HEENT: Pupils are round and equally reacting to light. EOMI. No scleral icterus. No conjunctival pallor. Normocephalic, atraumatic. No pharyngeal erythema. No thyromegaly. CARDIOVASCULAR: S1 and S2 present. No murmurs, rubs, or gallops. PULMONARY: Chest is clear to auscultation, no wheezing or crackles. ABDOMEN: Soft, nontender, nondistended, normoactive bowel sounds. No palpable organomegaly. MUSCULOSKELETAL: No joint swelling or deformity. EXTREMITIES: No cyanosis, clubbing, or pedal edema. NEUROLOGICAL: Gross neurological examination did not reveal any focal deficits. SKIN: No rashes. Results CBC & Chem 7: 09/11/17 09:45 09/11/17 09:45 Labs: Abnormal Lab Results - Last 24 Hours (Table) 09/11/17 09/11/17 09/11/17 Range/Units 09:45 09:45 09:45 RDW 11.3 L (11.5-15.5) % Lymphocytes # 0.1 L (1.0-4.8) k/uL Sodium 124 L (137-145) mmol/L Chloride 89 L (98-107) mmol/L AST 41 H (14-36) U/L Total Creatine Kinase (30-135) U/L CK-MB (CK-2) (0.0-2.4) ng/mL Troponin I 0.047 H* (0.000-0.034) ng/mL Urine Ketones (Negative) Ur Leukocyte Esterase (Negative) Urine Bacteria (None) /hpf 09/11/17 09/11/17 Range/Units 11:00 15:14 RDW (11.5-15.5) % Lymphocytes # (1.0-4.8) k/uL Sodium (137-145) mmol/L Chloride (98-107) mmol/L AST (14-36) U/L Total Creatine Kinase 208 H (30-135) U/L CK-MB (CK-2) 3.7 H* (0.0-2.4) ng/mL Troponin I 0.056 H* (0.000-0.034) ng/mL Urine Ketones Trace H (Negative) Ur Leukocyte Esterase Trace H (Negative) Urine Bacteria Occasional H (None) /hpf Microbiology - Last 24 Hours (Table) 09/11/17 11:00 Urine Culture - Preliminary Urine,Clean Catch Thrombosis Risk Factor Assmnt - Choose All That Apply Any of the Below Risk Factors Present?: Yes Each Factor Represents 1 point: Obesity (BMI >25), Serious lung disease incl. pneumonia (< 1month) Other Risk Factors: Yes Each Risk Factor Represents 2 Points: Age 61-74 years Other congenital or acquired thrombophilia - If yes, enter type in comment: No Thrombosis Risk Factor Assessment Total Risk Factor Score: 4 Thrombosis Risk Factor Assessment Level: Moderate Risk Assessment and Plan Plan: -Nausea vomiting and diarrhea: Symptoms resolved if she continues to have the symptoms C. diff testing will be obtain probably viral gastroenteritis. -hyponatremia secondary to hypervolemic hyponatremia and hydrochlorothiazide hydrochlorothiazide will be held and patient will be started on IV normal saline with gentle hydration repeat basic metabolic profile tomorrow. -Mildly elevated troponin will get 2 more repeat troponins, most probably type II non-ST elevation myocardial infarction secondary to viral gastroenteritis and intravascularly depletion -Type 2 diabetes mellitus: Patient will be resumed on home regimen along with sliding scale insulin titration depending on requirement of insulin. -Moderate dementia: Etiology is unclear at this time. - hypothyroidism continue with levothyroxine
[2017-09-11 21:05] LABS: Glucose,Whole Blood 81 mg/dL (75-99)
[2017-09-11] MEDS: INSULIN DETEMIR 100 UNIT/ML 10 ML VIAL SQ SCH (21:43)
[2017-09-11] MEDS: LOPERAMIDE 2 MG CAP PO PRN (22:13)
[2017-09-11 22:22] LABS: Creatine Kinase MB 5.5 ng/mL (0.0-2.4); Troponin I 0.048 ng/mL (0.000-0.034)
[2017-09-12 03:24] LABS: Glucose,Whole Blood 88 mg/dL (75-99)
[2017-09-12] MEDS: LEVOTHYROXINE 25 MCG TAB PO SCH (05:39)
[2017-09-12] MEDS: LOPERAMIDE 2 MG CAP PO PRN ×2 (05:39→14:43)
[2017-09-12 05:54] LABS: Glucose,Whole Blood 88 mg/dL (75-99)
[2017-09-12] MEDS: INSULIN ASPART 100 UNIT/ML 1 ML 10 ML VIAL SQ SCH ×3 (06:03→16:58)
[2017-09-12] MEDS: SODIUM CHLORIDE 0.9% 1,000 ML IV SCH ×4 (06:22→23:22)
[2017-09-12 06:37] LABS: Anion Gap 12 mmol/L; Blood Urea Nitrogen 16 mg/dL (7-17); Calcium 8.5 mg/dL (8.4-10.2); Carbon Dioxide 20 mmol/L (22-30); Chloride 97 mmol/L (98-107); Cholesterol 85 mg/dL (<200); Glucose 86 mg/dL (74-99); HDL Cholesterol 38 mg/dL (40-60); LDL Cholesterol,Calculated 36 mg/dL (0-99); Potassium 3.8 mmol/L (3.5-5.1); Sodium 129 mmol/L (137-145); Triglycerides 54 mg/dL (<150)
[2017-09-12] MEDS: CYANOCOBALAMIN 500 MCG TAB PO SCH (07:57)
[2017-09-12] MEDS: MEMANTINE 10 MG TAB PO SCH (07:58)
[2017-09-12] MEDS ORDERED: LISINOPRIL 10 MG TAB PO SCH (09:00)
[2017-09-12] MEDS ORDERED: ASPIRIN 325 MG TAB PO SCH (09:00)
[2017-09-12] MEDS: ASPIRIN 81 MG PO SCH (09:50)
[2017-09-12] MEDS: METOPROLOL TARTRATE 25 MG TAB PO SCH (09:51)
--- NOTE | 2017-09-12 10:32 | ECHOF ---
Referral Reason:hypertension MEASUREMENTS -------- HEIGHT: 165.1 cm WEIGHT: 60.8 kg BP: IVSd: 1.5 cm (0.6 - 1.1) LVIDd: 3.1 cm (3.9 - 5.3) LVPWd: 1.5 cm (0.6 - 1.1) IVSs: 1.7 cm LVIDs: 2.3 cm LVPWs: 1.8 cm LAESV Index (A-L): 26.72 ml/m Ao Diam: 3.0 cm (2.0 - 3.7) AV Cusp: 1.6 cm (1.5 - 2.6) LA Diam: 3.1 cm (2.7 - 3.8) MV EXCURSION: 12.495 mm (> 18.000) MV EF SLOPE: 34 mm/s (70 - 150) EPSS: 0.7 cm MV E Nikolay: 0.85 m/s MV DecT: 101 ms MV A Nikolay: 1.23 m/s MV E/A Ratio: 0.69 AR PHT: 234 ms RAP: 5.00 mmHg RVSP: 12.42 mmHg FINDINGS -------- Atrial fibrillation. This was a technically difficult study with suboptimal views. The left ventricular size is normal. There is moderate concentric left ventricular hypertrophy. O verall left ventricular systolic function is mildly impaired with, an EF between 45 - 50 %. Septal Hypokinesis Mid to basal inferiorlateral is hypokinetic The right ventricle is normal in size and function. Normal LA size by volume 22+/-6 ml/m2. The right atrium is normal in size. Aortic valve is trileaflet and is mildly thickened. There is mild aortic valve sclerosis. Trace a mount of aortic regurgitation. Mild mitral regurgitation is present. Mild tricuspid regurgitation present. The right ventricular systolic pressure, as measured by Doppl er, is 12.42mmHg. Pulmonic valve appears structurally normal. The pericardium is normal. CONCLUSIONS -------- 1. Atrial fibrillation. 2. This was a technically difficult study with suboptimal views. 3. The left ventricular size is normal. 4. There is moderate concentric left ventricular hypertrophy. 5. Overall left ventricular systolic function is mildly impaired with, an EF between 45 - 50 %. 6. Septal Hypokinesis 7. Mid to basal inferiorlateral is hypokinetic 8. The right ventricle is normal in size and function. 9. Normal LA size by volume 22+/-6 ml/m2. 10. The right atrium is normal in size. 11. Lumason used 12. Aortic valve is trileaflet and is mildly thickened. 13. There is mild aortic valve sclerosis. 14. Trace amount of aortic regurgitation. 15. Mild mitral regurgitation is present. 16. Mild tricuspid regurgitation present. 17. The right ventricular systolic pressure, as measured by Doppler, is 12.42mmHg. 18. Pulmonic valve appears structurally normal. 19. The pericardium is normal. [employer]: Roxy Hernandez RDCS
[2017-09-12] MEDS: DILTIAZEM 125 MG in SODIUM CHLORIDE 0.9% 100 ML IV SCH (10:44)
[2017-09-12 11:32] LABS: Glucose,Whole Blood 145 mg/dL (75-99)
--- NOTE | 2017-09-12 16:36 | P.PN ---
Subjective Patient was admitted for gastroenteritis rule out C. diff colitis. Patient was having multiple episodes of diarrhea symptomatically treatment for diarrhea IV fluids will be increased 1 25 mL per hour patient means hyponatremic secondary to diarrhea although serum sodium did improve a little bit. Patient went into atrial fibrillation with rapid unclear rate secondary to intravascular depletion presently rate controlled at this can urine Cardizem. Patient has proximal atrial fibrillation was evaluated by cardiology Constitutional: Denied any fatigue denied any fever. Cardio vascular: denied any chest pain, palpitations Gastrointestinal denied any nausea vomiting Pulmonary: Denied any shortness of breath cough Neurologic denied any new focal deficits Objective - Vital Signs Vital signs: Vital Signs Temp 97 F L 09/12/17 15:25 Pulse 66 09/12/17 15:25 Resp 20 09/12/17 15:25 BP 117/58 09/12/17 15:25 Pulse Ox 94 L 09/12/17 15:25 Intake & Output 09/11/17 09/12/17 09/12/17 18:59 06:59 18:59 Intake Total 1050 Output Total 200 Balance -200 1050 Weight 74 kg 61.1 kg Intake: Intake, IV Titration 810 Amount Diltiazem 125 mg In 10 Sodium Chloride 0.9% 100 ml @ 5 MG/HR 5 mls/hr IV .Q24H HUE Rx#:[id number] Sodium Chloride 0.9% 1, 800 000 ml @ 100 mls/hr IV . Q10H HUE Rx#:[id number] Oral 240 Output: Urine 200 Other: Voiding Method Toilet Bedside Commode # Voids 1 # Bowel Movements 2 - Exam PHYSICAL EXAMINATION: GENERAL: The patient is alert and oriented x3, not in any acute distress. Well developed, well nourished. Patient is bit tired HEENT: Pupils are round and equally reacting to light. EOMI. No scleral icterus. No conjunctival pallor. Normocephalic, atraumatic. No pharyngeal erythema. No thyromegaly. CARDIOVASCULAR: S1 and S2 present. No murmurs, rubs, or gallops. PULMONARY: Chest is clear to auscultation, no wheezing or crackles. ABDOMEN: Soft, nontender, nondistended, normoactive bowel sounds. No palpable organomegaly. MUSCULOSKELETAL: No joint swelling or deformity. EXTREMITIES: No cyanosis, clubbing, or pedal edema. NEUROLOGICAL: Gross neurological examination did not reveal any focal deficits. SKIN: No rashes. - Labs CBC & Chem 7: 09/11/17 09:45 09/12/17 05:52 Labs: Abnormal Lab Results - Last 24 Hours (Table) 09/11/17 09/12/17 09/12/17 Range/Units 21:32 05:52 11:25 Sodium 129 L (137-145) mmol/L Chloride 97 L (98-107) mmol/L Carbon Dioxide 20 L (22-30) mmol/L POC Glucose (mg/dL) 145 H (75-99) mg/dL Total Creatine Kinase 324 H (30-135) U/L CK-MB (CK-2) 5.5 H* (0.0-2.4) ng/mL Troponin I 0.048 H* (0.000-0.034) ng/mL HDL Cholesterol 38 L (40-60) mg/dL Microbiology - Last 24 Hours (Table) 09/11/17 11:00 Urine Culture - Final Urine,Clean Catch 09/11/17 09:45 Blood Culture - Preliminary Blood No Growth after 24 hours Assessment and Plan Plan: -Nausea vomiting and diarrhea: Probably gastroenteritis, IV fluids symptomatic treatment -Atrial fibrillation with rapid and regular rate: Presently now rate controlled with the brief period of IV Cardizem anticoagulation as per cardiology -hyponatremia secondary to hypervolemic hyponatremia and diarrhea: Increase IV fluids as mentioned above. -Mildly elevated troponin will get 2 more repeat troponins, most probably type II non-ST elevation myocardial infarction secondary to viral gastroenteritis and intravascularly depletion -Type 2 diabetes mellitus: Patient will be resumed on home regimen along with sliding scale insulin titration depending on requirement of insulin. -Moderate dementia: Etiology is unclear at this time. - hypothyroidism continue with levothyroxine
[2017-09-12 17:05] LABS: Glucose,Whole Blood 51 mg/dL (75-99)
[2017-09-12 17:35] LABS: Glucose,Whole Blood 49 mg/dL (75-99)
[2017-09-12 17:35] LABS: Glucose,Whole Blood 51 mg/dL (75-99)
[2017-09-12 17:52] LABS: Glucose,Whole Blood 57 mg/dL (75-99)
[2017-09-12] MEDS: CHOLESTYRAMINE (WITH SUGAR) 4 GM PACKET PO SCH (17:58)
[2017-09-12 18:38] LABS: Glucose,Whole Blood 94 mg/dL (75-99)
[2017-09-12 18:38] LABS: Glucose,Whole Blood 98 mg/dL (75-99)
--- NOTE | 2017-09-12 18:49 | CONS ---
CONSULTATION Mrs. Jacqueline Del Valle is a 72-year-old lady with multiple medical problems in the form of hypertension, type 2 diabetes mellitus. She is a resident of adult foster care facility. She was brought in with complaints of nausea, vomiting, diarrhea. She does not have any nausea, vomiting. She actually ate her breakfast this morning. There was also a question of bronchitis, fatigue and lack of energy. She was tested for influenza, which was negative. I am seeing her mainly because of a mildly elevated troponins, which are flat and appear equivocal, not suggestive of myocardial injury. PAST MEDICAL HISTORY: 1. Hypertension. 2. Type 2 diabetes mellitus. 3. Dementia. 4. History of UTI in the past. 5. She is a resident at [facility]. MEDICATIONS: At home include Namenda, vitamin supplements, insulin with each meal and Levemir at bedtime, levothyroxine, lisinopril hydrochlorothiazide /.5. ALLERGIES: None. REVIEW OF SYSTEMS: Unobtainable. EXAMINATION: Blood pressure is 118/70, pulse rate is about 70 per minute and regular. HEENT unremarkable. Fundus was not examined by me. Neck is supple. I cannot appreciate any JVD, but it is difficult to assess. There are no carotid bruits. Heart exam reveals S1, S2 heard normally. There is a short systolic murmur audible at the base. Lungs reveal diminished air entry bilateral lung larson. Abdomen is soft, nontender. Lower extremities reveal diminished pulses. Central nervous system assessment was not performed. EKG revealed a sinus mechanism with minor nonspecific ST changes and slightly leftward axis. LABORATORY DATA: Reveals troponin levels off of 0.04 and 0.05. IMPRESSION: 1. Elevated troponin which is not suggestive of myocardial injury. 2. Hypertension. 3. Type 2 diabetes mellitus. 4. History of dehydration, nausea and vomiting, which seems to be resolving. RECOMMENDATION: I am recommending that we cautiously hydrate the patient, decrease the aspirin to 81 mg daily, initiate her on Lopressor 25 mg daily and lisinopril 10 mg daily. Avoid hydrochlorothiazide. Check echocardiogram. Based on clinical course, we will make further recommendations. I am not suggesting any intervention for elevated troponin, which I do not believe is significant. Discussed my thoughts in detail with the patient. Thank you very much for the consult. MMODL / IJN: [id number] /
[2017-09-12] MEDS: INSULIN DETEMIR 100 UNIT/ML 10 ML VIAL SQ SCH (20:49)
[2017-09-12 20:50] LABS: Glucose,Whole Blood 122 mg/dL (75-99)
[2017-09-13] MEDS: SODIUM CHLORIDE 0.9% 1,000 ML IV SCH ×4 (06:14→16:10)
[2017-09-13 07:45] LABS: Glucose,Whole Blood 98 mg/dL (75-99)
[2017-09-13] MEDS: INSULIN ASPART 100 UNIT/ML 1 ML 10 ML VIAL SQ SCH ×3 (07:45→17:29)
[2017-09-13] MEDS: DILTIAZEM 125 MG in SODIUM CHLORIDE 0.9% 100 ML IV SCH (08:02)
[2017-09-13] MEDS: LEVOTHYROXINE 25 MCG TAB PO SCH (08:05)
[2017-09-13] MEDS: METOPROLOL TARTRATE 25 MG TAB PO SCH (08:05)
[2017-09-13] MEDS: ASPIRIN 81 MG PO SCH (08:06)
[2017-09-13] MEDS: LISINOPRIL 5 MG TAB PO SCH (08:06)
[2017-09-13] MEDS: MEMANTINE 10 MG TAB PO SCH (08:06)
[2017-09-13 08:31] LABS: HCT 37.8 % (34.0-46.0); HGB 12.3 gm/dL (11.4-16.0); MCHC 32.6 g/dL (31.0-37.0); MCV 91.9 fL (80.0-100.0); Mean Platelet Volume 7.2; Platelet Count 186 k/uL (150-450); RBC 4.11 m/uL (3.80-5.40); RDW 11.7 % (11.5-15.5); WBC 6.9 k/uL (3.8-10.6)
[2017-09-13 09:08] LABS: Anion Gap 9 mmol/L; Blood Urea Nitrogen 11 mg/dL (7-17); Calcium 8.6 mg/dL (8.4-10.2); Carbon Dioxide 17 mmol/L (22-30); Chloride 108 mmol/L (98-107); Glucose 96 mg/dL (74-99); Potassium 3.4 mmol/L (3.5-5.1); Sodium 134 mmol/L (137-145)
[2017-09-13] MEDS ORDERED: POTASSIUM CHLORIDE ER 20 MEQ TAB.ER PO STA (09:38)
[2017-09-13] MEDS: CYANOCOBALAMIN 500 MCG TAB PO SCH (10:24)
[2017-09-13] MEDS: CHOLESTYRAMINE (WITH SUGAR) 4 GM PACKET PO SCH ×3 (10:24→17:29)
[2017-09-13 11:58] LABS: Glucose,Whole Blood 114 mg/dL (75-99)
--- NOTE | 2017-09-13 15:50 | P.PN ---
Subjective Patient was admitted for gastroenteritis rule out C. diff colitis. Patient was having multiple episodes of diarrhea symptomatically treatment for diarrhea IV fluids will be increased 1 25 mL per hour patient means hyponatremic secondary to diarrhea although serum sodium did improve a little bit. Patient went into atrial fibrillation with rapid unclear rate secondary to intravascular depletion presently rate controlled at this can urine Cardizem. Patient has proximal atrial fibrillation was evaluated by cardiology 09/13/2017 Patient still has diarrhea today consulted gastroenterology to evaluate for noninfectious colitis. Patient will be continued on IV fluids Constitutional: Denied any fatigue denied any fever. Cardio vascular: denied any chest pain, palpitations Gastrointestinal denied any nausea vomiting Pulmonary: Denied any shortness of breath cough Neurologic denied any new focal deficits Objective - Vital Signs Vital signs: Vital Signs Temp 97.1 F L 09/13/17 14:01 Pulse 59 L 09/13/17 15:07 Resp 16 09/13/17 15:07 BP 140/62 09/13/17 14:01 Pulse Ox 94 L 09/13/17 14:01 Intake & Output 09/12/17 09/13/17 09/13/17 18:59 06:59 18:59 Intake Total 1310 1000 Balance 1310 1000 Intake: Intake, IV Titration 810 1000 Amount Diltiazem 125 mg In 10 Sodium Chloride 0.9% 100 ml @ 5 MG/HR 5 mls/hr IV .Q24H HUE Rx#:[id number] Sodium Chloride 0.9% 1, 800 1000 000 ml @ 125 mls/hr IV . Q8H HUE Rx#:[id number] Oral 500 Other: Voiding Method Bedside Commode Toilet # Voids 1 2 - Exam PHYSICAL EXAMINATION: GENERAL: The patient is alert and oriented x3, not in any acute distress. Well developed, well nourished. Patient is bit tired HEENT: Pupils are round and equally reacting to light. EOMI. No scleral icterus. No conjunctival pallor. Normocephalic, atraumatic. No pharyngeal erythema. No thyromegaly. CARDIOVASCULAR: S1 and S2 present. No murmurs, rubs, or gallops. PULMONARY: Chest is clear to auscultation, no wheezing or crackles. ABDOMEN: Soft, nontender, nondistended, normoactive bowel sounds. No palpable organomegaly. MUSCULOSKELETAL: No joint swelling or deformity. EXTREMITIES: No cyanosis, clubbing, or pedal edema. NEUROLOGICAL: Gross neurological examination did not reveal any focal deficits. SKIN: No rashes. - Labs CBC & Chem 7: 09/13/17 07:53 09/13/17 07:53 Labs: Abnormal Lab Results - Last 24 Hours (Table) 09/12/17 09/12/17 09/12/17 Range/Units 16:51 17:08 17:23 Sodium (137-145) mmol/L Potassium (3.5-5.1) mmol/L Chloride (98-107) mmol/L Carbon Dioxide (22-30) mmol/L POC Glucose (mg/dL) 51 L 51 L 49 L (75-99) mg/dL 09/12/17 09/12/17 09/13/17 Range/Units 17:41 20:41 07:53 Sodium 134 L (137-145) mmol/L Potassium 3.4 L (3.5-5.1) mmol/L Chloride 108 H (98-107) mmol/L Carbon Dioxide 17 L (22-30) mmol/L POC Glucose (mg/dL) 57 L 122 H (75-99) mg/dL 09/13/17 Range/Units 11:56 Sodium (137-145) mmol/L Potassium (3.5-5.1) mmol/L Chloride (98-107) mmol/L Carbon Dioxide (22-30) mmol/L POC Glucose (mg/dL) 114 H (75-99) mg/dL Microbiology - Last 24 Hours (Table) 09/11/17 09:45 Blood Culture - Preliminary Blood No Growth after 48 hours 09/11/17 11:00 Urine Culture - Final Urine,Clean Catch Assessment and Plan Plan: -Nausea vomiting and diarrhea: Josue to be secondary to gastroenteritis, other etiologies for noninfectious colitis need to be ruled out, gastroneurology was consulted -Atrial fibrillation with rapid and regular rate: Presently now rate controlled with the brief period of IV Cardizem anticoagulation as per cardiology -hyponatremia secondary to hypervolemic hyponatremia and diarrhea: Patient is on IV fluids at 1 25 mL/h -Mildly elevated troponin will get 2 more repeat troponins, most probably type II non-ST elevation myocardial infarction secondary to viral gastroenteritis and intravascularly depletion -Type 2 diabetes mellitus: Patient will be resumed on home regimen along with sliding scale insulin titration depending on requirement of insulin. -Moderate dementia: Etiology is unclear at this time. - hypothyroidism continue with levothyroxine
[2017-09-13 17:24] LABS: Glucose,Whole Blood 78 mg/dL (75-99)
[2017-09-13 21:20] LABS: Glucose,Whole Blood 91 mg/dL (75-99)
[2017-09-13] MEDS: INSULIN DETEMIR 100 UNIT/ML 10 ML VIAL SQ SCH (21:26)
[2017-09-14] MEDS: SODIUM CHLORIDE 0.9% 1,000 ML IV SCH ×2 (06:30→08:53)
[2017-09-14] MEDS: LEVOTHYROXINE 25 MCG TAB PO SCH (06:30)
[2017-09-14 07:30] VITALS: TEMP 97.5
[2017-09-14 07:30] LABS: Glucose,Whole Blood 90 mg/dL (75-99)
[2017-09-14] MEDS: INSULIN ASPART 100 UNIT/ML 1 ML 10 ML VIAL SQ SCH ×2 (07:35→13:00)
--- NOTE | 2017-09-14 08:46 | P.CONS ---
History of Present Illness - Reason for Consult Consult date: 09/14/17 Diarrhea Requesting physician: Perez Hampton - History of Present Illness 72-year-old female [facility] resident admitted with nausea vomiting weakness fever T- max 101 with past medical history of recent UTI, dementia, diabetes mellitus and hypertension. History obtained from medical records and nursing staff this patient's history of dementia makes it difficult to obtain history. According to nursing staff she was experiencing some diarrhea yesterday that has since resolved. No further emesis. Patient never reported abdominal pain. She is tolerating a diet. No reports of hematemesis hematochezia melena. Unsure if she has a history of colonoscopy. Clostridium difficile toxin not detected. White count 6.9. Hemoglobin 12.3. Sodium 134. Potassium 3.4. BUN 11. Creatinine 0.7. Review of Systems Obtained from medical records Constitutional: Denies fever, chills, sweats, weight gain, or loss. History of dementia. HEENT: Negative for migraines, blurred vision or loss, earaches, drainage, tinnitus, oral mucosal lesions, dysphagia, or odynophagia. CARDIAC: History of hypertension. Negative for chest pain, arrhythmias, or palpitation. RESPIRATORY: Negative for shortness of breath, hemoptysis, cough, or sputum production. GI: See HPI for pertinent findings. : Negative for hematuria, urgency, frequency, polyuria, or dysuria. GYNc: Denies possibility of . Negative vaginal discharge. MUSCULOSKELETAL: Negative for muscle aches, swelling, arthritis, and arthralgias. NEUROLOGIC: Negative for stroke or TIA. ENDOCRINE: History of diabetes. Negative for thyroid problems. SKIN: Negative for rash or itching. PSYCHIATRIC: Negative history for depression and anxiety ROS unobtainable: due to mental status Past Medical History Past Medical History: Dementia, Diabetes Mellitus, Hypertension Additional Past Medical History / Comment(s): Pt recently admitted to [facility] on 07/29/17 with UTI/confusion d/t UTI or dementia, new onset diabetes. Other hx: hypothyroid. 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 She ambulates with a walker. Her son, Karl Lobato is her legal gaurdian. Smoking Status: Never smoker Past Alcohol Use History: Rare Past Drug Use History: None Reported - Past Family History Sister(s) Family Medical History: Dementia Medications and Allergies Home Medications Medication Instructions Recorded Confirmed Type Memantine [Namenda] 10 mg PO DAILY tab 08/01/17 09/11/17 Rx ALPRAZolam [Xanax] 0.25 mg PO DAILY PRN 09/11/17 09/11/17 History Cyanocobalamin (Vitamin B-12) 1,000 mcg PO DAILY 09/11/17 09/11/17 History [Vitamin B-12] Ear Drops 6.5% Soln 1 drop BOTH EARS TID 09/11/17 09/11/17 History Ergocalciferol [Vitamin D2] 50,000 unit PO MOON 09/11/17 09/11/17 History Insulin Aspart [NovoLOG 7 unit SQ AC-TID 09/11/17 09/11/17 History (formulary)] Insulin Detemir [Levemir] 20 unit SQ HS 09/11/17 09/11/17 History Levothyroxine Sodium [Synthroid] 25 mcg PO DAILY 09/11/17 09/11/17 History Lisinopril-Hctz 10-12.5 mg 1 tab PO DAILY 09/11/17 09/11/17 History [Zestoretic 10-12.5] Allergies Allergy/AdvReac Type Severity Reaction Status Date / Time No Known Allergies Allergy Verified 09/11/17 08:48 Physical Exam Vitals: Vital Signs Temp Pulse Resp BP Pulse Ox 09/14/17 07:00 97.5 F L 78 18 149/85 99 09/13/17 23:00 97.6 F 81 17 162/77 98 09/13/17 15:07 59 L 16 09/13/17 14:01 97.1 F L 59 L 16 140/62 94 L Intake and Output 09/13/17 09/14/17 09/14/17 22:59 06:59 14:59 Intake Total 400 Balance 400 Intake: Oral 400 Other: Voiding Method Toilet # Voids 3 2 # Bowel Movements 4 General appearance: The patient is alert, oriented to self, in no acute distress. HET: Head is normocephalic and atraumatic. Pupils are equal and reactive. Oropharynx is clear without lesions. Neck: Supple without lymphadenopathy. Trachea midline. Heart: S1 S2. Regular rate and rhythm. Lungs: No crackles or wheezes are heard. Abdomen: Soft, nontender, nondistended with bowel sounds. No peritoneal signs. No palpable organomegaly or masses. Extremities: Normal skin color and turgor. No cyanosis, rash, ulceration, clubbing, or edema. Radial and pedal pulses are 2/4 bilaterally. Neurological: No focal deficits. Strength and sensation are grossly intact. Results CBC & Chem 7: 09/13/17 07:53 09/14/17 08:06 Labs: Abnormal Lab Results - Last 24 Hours (Table) 09/13/17 09/13/17 Range/Units 07:53 11:56 Sodium 134 L (137-145) mmol/L Potassium 3.4 L (3.5-5.1) mmol/L Chloride 108 H (98-107) mmol/L Carbon Dioxide 17 L (22-30) mmol/L POC Glucose (mg/dL) 114 H (75-99) mg/dL Microbiology - Last 24 Hours (Table) 09/11/17 09:45 Blood Culture - Preliminary Blood No Growth after 48 hours Assessment and Plan (1) Diarrhea Narrative/Plan: 72-year-old female history of underlying dementia admitted with intractable nausea vomiting diarrhea without abdominal pain possible gastroenteritis with recent hospitalization for UTI. Presently diarrhea has resolved maintained on stool thickeners and antidiarrheals. Clostridium difficile toxin not detected. Current Visit: Yes Status: Acute Code(s): R19.7 - DIARRHEA, UNSPECIFIED SNOMED Code(s): 19657733 Plan: 1. Diarrhea appears to be improving per nursing staff. Inpatient endoscopic exams not planned at this time unless diarrhea worsens. Continue with Questran and Antidiarrheals. We'll continue to follow with you. Discharge per medicine. Thank you for this kind referral and the opportunity to participate in the care of your patient. This consultation was discussed with Dr. Andrew. The impression and plan of care have been directed as dictated.
[2017-09-14] MEDS: MEMANTINE 10 MG TAB PO SCH (08:49)
[2017-09-14] MEDS: METOPROLOL TARTRATE 25 MG TAB PO SCH (08:49)
[2017-09-14] MEDS: LISINOPRIL 5 MG TAB PO SCH (08:49)
[2017-09-14] MEDS: ASPIRIN 81 MG PO SCH (08:49)
[2017-09-14] MEDS: CYANOCOBALAMIN 500 MCG TAB PO SCH (08:50)
[2017-09-14 09:00] LABS: Anion Gap 8 mmol/L; Blood Urea Nitrogen 11 mg/dL (7-17); Calcium 8.8 mg/dL (8.4-10.2); Carbon Dioxide 21 mmol/L (22-30); Chloride 109 mmol/L (98-107); Glucose 95 mg/dL (74-99); Magnesium 1.6 mg/dL (1.6-2.3); Potassium 4.1 mmol/L (3.5-5.1); Sodium 138 mmol/L (137-145)
[2017-09-14] MEDS ORDERED: LOPERAMIDE 2 MG CAP PO SCH (09:00)
[2017-09-14] MEDS: CHOLESTYRAMINE (WITH SUGAR) 4 GM PACKET PO SCH ×2 (10:00→14:56)
[2017-09-14] MEDS ORDERED: LOPERAMIDE 2 MG CAP PO PRN (12:09)
[2017-09-14 12:13] LABS: Glucose,Whole Blood 139 mg/dL (75-99)
[2017-09-14 14:40] VITALS: BP 170/75; PULSE 69; RESP 16
--- NOTE | 2017-09-14 15:27 | P.DS ---
Providers Date of admission: 09/11/17 12:17 Attending physician: Cruz Bills Consults: 09/11/17 12:17 Consult Physician Urgent Consulting Provider: Amari Clay Consult Reason/Comments: Elevated troponin Do you want consulting provider notified?: Yes 09/13/17 15:47 Consult Physician Routine Consulting Provider: Precious Kurtz Consult Reason/Comments: Uncontrolled diarrhea, possible colitis Do you want consulting provider notified?: Yes Primary care physician: [facility] Course: Patient was admitted for gastroenteritis rule out C. diff colitis. Patient was having multiple episodes of diarrhea symptomatically treatment for diarrhea IV fluids will be increased 1 25 mL per hour patient means hyponatremic secondary to diarrhea although serum sodium did improve a little bit. Patient went into atrial fibrillation with rapid unclear rate secondary to intravascular depletion presently rate controlled at this can urine Cardizem. Patient has proximal atrial fibrillation was evaluated by cardiology 09/13/2017 Patient still has diarrhea today consulted gastroenterology to evaluate for noninfectious colitis. Patient will be continued on IV fluids 09/14/2017 Patient's diarrhea completely resolved bit confused secondary to delirium related to hospitalization patient does have dementia patient does not have any signs or symptoms of infection at this time patient's sodium improved patient will be discharged today to follow with gastroneurology as an outpatient PHYSICAL EXAMINATION: GENERAL: The patient is alert and oriented x2, not in any acute distress. Well developed, well nourished. Patient is bit tired HEENT: Pupils are round and equally reacting to light. EOMI. No scleral icterus. No conjunctival pallor. Normocephalic, atraumatic. No pharyngeal erythema. No thyromegaly. CARDIOVASCULAR: S1 and S2 present. No murmurs, rubs, or gallops. PULMONARY: Chest is clear to auscultation, no wheezing or crackles. ABDOMEN: Soft, nontender, nondistended, normoactive bowel sounds. No palpable organomegaly. MUSCULOSKELETAL: No joint swelling or deformity. EXTREMITIES: No cyanosis, clubbing, or pedal edema. NEUROLOGICAL: Gross neurological examination did not reveal any focal deficits. SKIN: No rashes. Assessment and Plan Plan: -Nausea vomiting and diarrhea: Probably due to gastroenteritis symptoms improved lasted in June colitis was negative. -Atrial fibrillation with rapid and regular rate: Presently now rate controlled with the brief period of IV Cardizem, presently on metoprolol and rate controlled now no and the correlation is being recommended by cardiology. -hyponatremia secondary to hypervolemic hyponatremia and diarrhea: Improved now with IV fluids -Mildly elevated troponin will get 2 more repeat troponins, most probably type II non-ST elevation myocardial infarction secondary to viral gastroenteritis and intravascularly depletion, cardiology evaluated the patient -Type 2 diabetes mellitus: -Moderate dementia: Etiology is unclear at this time. - hypothyroidism Patient Condition at Discharge: Stable Plan - Discharge Summary Discharge Rx Participant: No New Discharge Prescriptions: New INSULIN LISPRO (humaLOG) [humaLOG] 1 injection SQ DIRECTED #10 ml Aspirin 81 mg PO DAILY #30 chew Lisinopril [Zestril] 5 mg PO DAILY #30 tab Loperamide [Imodium] 2 mg PO TID PRN #30 cap PRN Reason: Diarrhea Metoprolol Tartrate [Lopressor] 25 mg PO DAILY #60 tab Continue Memantine [Namenda] 10 mg PO DAILY tab Levothyroxine Sodium [Synthroid] 25 mcg PO DAILY Ergocalciferol [Vitamin D2 (DRISDOL)] 50,000 unit PO MOON Cyanocobalamin (Vitamin B-12) [Vitamin B-12] 1,000 mcg PO DAILY Ear Drops 6.5% Soln 1 drop BOTH EARS TID Discontinued Insulin Aspart [NovoLOG (formulary)] 7 unit SQ AC-TID ALPRAZolam [Xanax] 0.25 mg PO DAILY PRN PRN Reason: Anxiety Insulin Detemir [Levemir] 20 unit SQ HS Lisinopril-Hctz 10-12.5 mg [Zestoretic 10-12.5] 1 tab PO DAILY Discharge Medication List Memantine [Namenda] 10 mg PO DAILY tab 08/01/17 [Rx] Cyanocobalamin (Vitamin B-12) [Vitamin B-12] 1,000 mcg PO DAILY 09/11/17 [ History] Ear Drops 6.5% Soln 1 drop BOTH EARS TID 09/11/17 [History] Ergocalciferol [Vitamin D2 (DRISDOL)] 50,000 unit PO MOON 09/11/17 [History] Levothyroxine Sodium [Synthroid] 25 mcg PO DAILY 09/11/17 [History] Aspirin 81 mg PO DAILY #30 chew 09/14/17 [Rx] INSULIN LISPRO (humaLOG) [humaLOG] 1 injection SQ DIRECTED #10 ml 09/14/17 [ Rx] Lisinopril [Zestril] 5 mg PO DAILY #30 tab 09/14/17 [Rx] Loperamide [Imodium] 2 mg PO TID PRN #30 cap 09/14/17 [Rx] Metoprolol Tartrate [Lopressor] 25 mg PO DAILY #60 tab 09/14/17 [Rx] Follow up Appointment(s)/Referral(s): [facility], [NON-STAFF] - As Needed Carl Russell MD [Primary Care Provider] - 1 Week ([facility] to schedule. ) Patient Instructions/Handouts: Pneumonia (DC) Activity/Diet/Wound Care/Special Instructions: Return to [facility] Cardiac, diabetic diet. Activity as tolerated, fall precautions. [employer] guardian. Discharge Disposition: HOME SELF-CARE
== END 2017-09-14 16:25 | disposition home health service (06) | DRG 391 ==
LOC: EC 08:30 → 6SEL 12:17 → 4MS4W 09-12 23:16
PROVIDERS: ADMIT Hospitalist; ATTEND Hospitalist
DX: A08.4 Viral intestinal infection, unspecified (principal); I21.A1 Myocardial infarction type 2; E87.70 Fluid overload, unspecified; E87.1 Hypo-osmolality and hyponatremia; E11.9 Type 2 diabetes mellitus without complications; E03.9 Hypothyroidism, unspecified; E78.5 Hyperlipidemia, unspecified; F03.90 Unspecified dementia, unspecified severity, without behavioral disturbance, psychotic disturbance, mood disturbance, and anxiety; I10 Essential (primary) hypertension; T50.2X5A Adverse effect of carbonic-anhydrase inhibitors, benzothiadiazides and other diuretics, initial encounter; I48.0 Paroxysmal atrial fibrillation; Z79.4 Long term (current) use of insulin; Z79.899 Other long term (current) drug therapy; Z87.440 Personal history of urinary (tract) infections; Y92.009 Unspecified place in unspecified non-institutional (private) residence as the place of occurrence of the external cause
CPT/HCPCS: 36415; 71046; 80048; 80053; 80061; 81001; 82550; 82553; 83605; 83735; 84484; 85025; 85027; 85610; 85730; 87040; 87086; 87324; 87502; 93005; 93306; 94640; 96361; 96365; 99285

== ENCOUNTER 2017-10-02 11:37 | Inpatient (IN) | payer MEDICARE, BC ==
[2017-10-02 13:23] LABS: Glucose,Whole Blood 134 mg/dL (75-99)
--- NOTE | 2017-10-02 14:19 | ED ---
General Adult HPI - General Chief complaint: Recheck/Abnormal Lab/Rx Stated complaint: Foot infection Source: patient, RN notes reviewed Mode of arrival: wheelchair Limitations: no limitations - History of Present Illness Initial comments: 72-year-old female presents to the emergency department for infection of the second digit on the left foot. Patient has a history of diabetes and hypertension. Patient is currently [facility] in a [facility]. A visiting physician prescribed her Keflex 500mg TID which she has completed 3 days. However the infection is getting worse and he suspected she failed outpatient treatment so referred her to the emergency department. Patient does not have pain in the foot and likely has peripheral neuropathy. Patient has not felt feverish or had chills. Patient denies shortness of breath or chest pain. - Related Data Home Medications Medication Instructions Recorded Confirmed Cyanocobalamin (Vitamin B-12) 1,000 mcg PO DAILY 09/11/17 10/02/17 [Vitamin B-12] Levothyroxine Sodium [Synthroid] 25 mcg PO DAILY 09/11/17 10/02/17 Carbamide Peroxide [Debrox Otic] 1 drops BOTH EARS TID 10/02/17 10/02/17 Insulin Aspart [NovoLOG See Protocol SQ ACHS 10/02/17 10/02/17 (formulary)] Metoprolol Tartrate [Lopressor] 25 mg PO BID 10/02/17 10/02/17 Previous Rx's Medication Instructions Recorded Memantine [Namenda] 10 mg PO DAILY tab 08/01/17 Aspirin 81 mg PO DAILY #30 chew 09/14/17 Lisinopril [Zestril] 5 mg PO DAILY #30 tab 09/14/17 Allergies Allergy/AdvReac Type Severity Reaction Status Date / Time No Known Allergies Allergy Verified 10/02/17 15:17 Review of Systems ROS Statement: Those systems with pertinent positive or pertinent negative responses have been documented in the HPI. ROS Other: All systems not noted in ROS Statement are negative. Past Medical History Past Medical History: Dementia, Diabetes Mellitus, Hypertension Additional Past Medical History / Comment(s): Pt recently admitted to [facility] on 07/29/17 with UTI/confusion d/t UTI or dementia, new onset diabetes. Other hx: hypothyroid. History of Any Multi-Drug Resistant Organisms: VRE Date of last positivie culture/infection: 08/04/17 MDRO Source:: VRE URINE Past Surgical History: No Surgical Hx Reported Additional Past Anesthesia/Blood Transfusion Reaction / Comment(s): Pt has never had surgery before Past Psychological History: No Psychological Hx Reported Smoking Status: Never smoker Past Alcohol Use History: Rare Past Drug Use History: None Reported - Past Family History Sister(s) Family Medical History: Dementia General Exam Limitations: no limitations Head exam: Present: atraumatic, normocephalic, normal inspection Neck exam: Present: normal inspection. Absent: tenderness, meningismus, lymphadenopathy Respiratory exam: Present: normal lung sounds bilaterally. Absent: respiratory distress, wheezes, rales, rhonchi, stridor Cardiovascular Exam: Present: regular rate, normal rhythm, normal heart sounds. Absent: systolic murmur, diastolic murmur, rubs, gallop, clicks GI/Abdominal exam: Present: soft, normal bowel sounds. Absent: distended, tenderness, guarding, rebound, rigid Extremities exam: Present: full ROM (Of the second digit of the left foot), normal capillary refill (Of the second digit of the left foot), other ( infection and skin breakdown of the second secondary to of the left foot). Absent: tenderness, pedal edema, joint swelling, calf tenderness Course Vital Signs 10/02/17 12:05 Temperature 97.7 F Pulse Rate 64 Respiratory 17 Rate Blood Pressure 120/60 O2 Sat by Pulse 99 Oximetry Medical Decision Making - Medical Decision Making 72-year-old female presents to the emergency department for infection of the second digit of the left foot. Patient has a history of diabetes. Patient states the foot is not painful, likely due to peripheral neuropathy. Patient was seen in [facility] by a visiting physician who prescribed Keflex. After 4 days he re-evaluated and felt she failed out patient treatment and referred her to the emergency department. Patient denies fevers or chills. X-ray of the affected extremity as well as CBC, BMP, lactate, blood cultures and CRP were ordered. X-ray does show remote trauma of the proximal phalanx of the second and third digits. There is also a fracture of the base of the fifth metatarsal. Patient's white blood cell count was not elevated. She has no fever. CBC, CMP, lactate were within normal limits. However patient did fail outpatient treatment and we are concerned for infection with a history of diabetes and peripheral neuropathy. Wound was cultured and blood cultures sent. She will be admitted for IV Unasyn - Lab Data Result diagrams: 10/02/17 14:54 10/02/17 14:54 Lab Results 10/02/17 10/02/17 10/02/17 Range/Units 13:21 14:54 14:54 WBC 8.4 (3.8-10.6) k/uL RBC 4.31 (3.80-5.40) m/uL Hgb 12.7 (11.4-16.0) gm/dL Hct 37.8 (34.0-46.0) % MCV 87.5 (80.0-100.0) fL MCH 29.4 (25.0-35.0) pg MCHC 33.5 (31.0-37.0) g/dL RDW 12.0 (11.5-15.5) % Plt Count 332 (150-450) k/uL Neutrophils % 60 % Lymphocytes % 24 % Monocytes % 7 % Eosinophils % 5 % Basophils % 1 % Neutrophils # 5.1 (1.3-7.7) k/uL Lymphocytes # 2.1 (1.0-4.8) k/uL Monocytes # 0.6 (0-1.0) k/uL Eosinophils # 0.5 (0-0.7) k/uL Basophils # 0.1 (0-0.2) k/uL Sodium 138 (137-145) mmol/L Potassium 4.5 (3.5-5.1) mmol/L Chloride 101 (98-107) mmol/L Carbon Dioxide 26 (22-30) mmol/L Anion Gap 11 mmol/L BUN 14 (7-17) mg/dL Creatinine 0.60 (0.52-1.04) mg/dL Est GFR (CKD-EPI)AfAm >90 (>60 ml/min/1.73 sqM) Est GFR (CKD-EPI)NonAf >90 (>60 ml/min/1.73 sqM) Glucose 119 H (74-99) mg/dL POC Glucose (mg/dL) 134 H (75-99) mg/dL POC Glu Bobbin Dumper ID Acevedo, Merlene Plasma Lactic Acid Manjinder (0.7-2.0) mmol/L Calcium 9.8 (8.4-10.2) mg/dL C-Reactive Protein 12.5 H (<10.0) mg/L 10/02/17 10/02/17 Range/Units 14:54 15:48 WBC (3.8-10.6) k/uL RBC (3.80-5.40) m/uL Hgb (11.4-16.0) gm/dL Hct (34.0-46.0) % MCV (80.0-100.0) fL MCH (25.0-35.0) pg MCHC (31.0-37.0) g/dL RDW (11.5-15.5) % Plt Count (150-450) k/uL Neutrophils % % Lymphocytes % % Monocytes % % Eosinophils % % Basophils % % Neutrophils # (1.3-7.7) k/uL Lymphocytes # (1.0-4.8) k/uL Monocytes # (0-1.0) k/uL Eosinophils # (0-0.7) k/uL Basophils # (0-0.2) k/uL Sodium (137-145) mmol/L Potassium (3.5-5.1) mmol/L Chloride (98-107) mmol/L Carbon Dioxide (22-30) mmol/L Anion Gap mmol/L BUN (7-17) mg/dL Creatinine (0.52-1.04) mg/dL Est GFR (CKD-EPI)AfAm (>60 ml/min/1.73 sqM) Est GFR (CKD-EPI)NonAf (>60 ml/min/1.73 sqM) Glucose (74-99) mg/dL POC Glucose (mg/dL) 110 H (75-99) mg/dL POC Glu Bobbin Dumper ID Gracie Sherman Plasma Lactic Acid Manjinder 0.8 (0.7-2.0) mmol/L Calcium (8.4-10.2) mg/dL C-Reactive Protein (<10.0) mg/L Disposition Clinical Impression: Infection of toe, Fracture of fifth metatarsal bone Disposition: ADMITTED IP TO THIS HOSP Condition: Good Referrals: Carl Russell MD [Primary Care Provider] - 1-2 days Decision Time: 17:04
[2017-10-02 15:14] LABS: Basophils # (A) 0.1 k/uL (0-0.2); Basophils % (A) 1 %; Eosinophils # (A) 0.5 k/uL (0-0.7); Eosinophils % (A) 5 %; HCT 37.8 % (34.0-46.0); HGB 12.7 gm/dL (11.4-16.0); Lymphocytes # (A) 2.1 k/uL (1.0-4.8); Lymphocytes % (A) 24 %; MCH 29.4 pg (25.0-35.0); MCHC 33.5 g/dL (31.0-37.0); MCV 87.5 fL (80.0-100.0); Mean Platelet Volume 7.6; Monocytes # (A) 0.6 k/uL (0-1.0); Monocytes % (A) 7 %; Neutrophils # (A) 5.1 k/uL (1.3-7.7); Neutrophils % (A) 60 %; Platelet Count 332 k/uL (150-450); RBC 4.31 m/uL (3.80-5.40); WBC 8.4 k/uL (3.8-10.6)
[2017-10-02 15:17] LABS: Anion Gap 11 mmol/L; Blood Urea Nitrogen 14 mg/dL (7-17); C Reactive Protein 12.5 mg/L (<10.0); Calcium 9.8 mg/dL (8.4-10.2); Carbon Dioxide 26 mmol/L (22-30); Chloride 101 mmol/L (98-107); Glucose 119 mg/dL (74-99); Potassium 4.5 mmol/L (3.5-5.1); Sodium 138 mmol/L (137-145)
--- NOTE | 2017-10-02 15:29 | XR ---
EXAMINATION TYPE: XR foot complete LT DATE OF EXAM: 10/02/2017 COMPARISON: NONE HISTORY: Pain TECHNIQUE: Three views are submitted. FINDINGS: There is soft tissue edema and arthropathy of the first MTP, second PIP. Remote trauma involving the second and third proximal phalanx noted. There is acute fracture of the base of fifth metatarsal. There is arthropathy of the tarsal metatarsa l junction. Sclerosis of the base of the fourth metatarsal could be seen with stress fracture. Calcan eal spur noted. There is diffuse soft tissue edema. IMPRESSION: 1. There is a mildly displaced fracture base of the fifth metatarsal 2. Remote trauma involving proximal phalanx second and third digits 3. Arthritic changes as discussed above
[2017-10-02 15:50] LABS: Glucose,Whole Blood 110 mg/dL (75-99)
[2017-10-02] MEDS ORDERED: NALOXONE 0.4 MG/ML 1 ML VIAL IV PRN ×2 (16:30→20:00)
[2017-10-02] MEDS ORDERED: ACETAMINOPHEN TAB 325 MG TAB PO PRN (16:43)
[2017-10-02] MEDS: SODIUM CHLORIDE 0.9% 1,000 ML IV SCH (17:01)
[2017-10-02] MEDS ORDERED: AMPICILLIN-SULBACTAM 1.5 GM in SODIUM CHLORIDE 0.9% 50 ML IVPB STA (17:11)
[2017-10-02 18:08] LABS: Glucose,Whole Blood 199 mg/dL (75-99)
[2017-10-02] MEDS: INSULIN ASPART 100 UNIT/ML 1 ML 10 ML VIAL SQ SCH ×2 (18:18→21:42)
[2017-10-02] MEDS ORDERED: CALCIUM CARBONATE 500 MG CHEWABLE PO PRN (20:00)
[2017-10-02] MEDS ORDERED: ONDANSETRON 4 MG/2 ML VIAL IVP PRN (20:00)
[2017-10-02] MEDS ORDERED: LACTULOSE 20 GM/30 ML CUP PO PRN (20:00)
[2017-10-02] MEDS ORDERED: LORazepam 0.5 MG TAB PO PRN (20:00)
[2017-10-02] MEDS ORDERED: Acetaminophen-Codeine 300-30mg TAB PO PRN (20:00)
[2017-10-02] MEDS ORDERED: MAGNESIUM HYDROXIDE 2,400 MG/10 ML CUP PO PRN (20:00)
--- NOTE | 2017-10-02 20:37 | HP ---
HISTORY AND PHYSICAL DATE OF ADMISSION: October 02, 2017. PRESENT COMPLAINT: Wound on the right 2nd toe. HISTORY OF PRESENTING COMPLAINT: This is a 72-year-old patient who follows with visiting physician Dr. Russell. Chronic stable medical conditions include diabetes, hypertension, dementia, hypothyroid. The patient uses a walker to get about. The patient lives at the [facility] and patient's son Karl is his his legal guardian. He is present here and gives most of the history as patient is pleasantly confused, cannot give much of a history herself. The patient was noted to have redness of the right 2nd toe and it became worse. Did get some antibiotics as an outpatient. Did not help much. There is some drainage on the lateral aspect with wound. Denies much pain. The patient has some numbness in the feet. The patient does not know if she had a fever or not. Hence she was brought in for the same. Started on IV Unasyn in the ER. REVIEW OF SYSTEMS: CONSTITUTIONAL: None. HEENT: Decreased hearing. Respiratory none. Cardiovascular none. Gastrointestinal denies. Dermatological as above. Musculoskeletal: Arthritic pain in joints. Lymphatics none. Psychiatry forgetful. Neurological does use a walker to get about. PAST MEDICAL HISTORY: Of dementia, hypertension, diabetes, hypothyroid, gait dysfunction, uses a walker. PAST SURGICAL HISTORY: Past surgical history none. SOCIAL HISTORY: The patient lives at [facility]. Son Karl is his legal guardian. No smoking. Alcohol rarely. FAMILY HISTORY: Of dementia. HOME MEDICATIONS: 1. Lopressor 25 mg b.i.d. 2. Namenda 10 mg daily. 3. Zestril 5 mg p.o. daily. 4. Debrox 1 drop to both ears t.i.d. 5. Aspirin 81 mg daily. 6. Synthroid 25 mcg a day. 7. Vitamin B12 1000 mcg p.o. daily. ALLERGIES: None. PHYSICAL EXAMINATION: Temperature 97.7, pulse 54, respiratory 17, blood pressure 120/60, pulse ox 99%. GENERAL APPEARANCE: Thin build, lying in bed, comfortable. Eyes: Pupils equal. Conjunctivae normal. HEENT external appearance of nose and ears normal. Oral cavity normal. Decreased hearing. Neck JVD not raised. Mass not palpable. Respiratory effort normal. Lungs fair entry. Cardiovascular: First and second sounds normal. No edema. ABDOMEN: Soft, nontender. Liver and spleen not palpable. Lymphatics: No lymph nodes palpable in the neck and axilla. Psychiatry: She is not sure where she is. She is not sure about the year, not sure about the month. Otherwise able to carry out a conversation. Neurological: Pupils equal. No facial asymmetry. Power and sensation grossly intact. Musculoskeletal: Evidence of osteoarthritis especially in the hands and knees. Extremities: The patient's right 2nd toe is somewhat inflamed. Minimal tender. There is a wound on the lateral aspect and draining and skin in the joining area is rather soggy. INVESTIGATIONS: White count 8.4, hemoglobin 12.7, potassium 4.5, BUN 14, creatinine 0.60. CRP is 12.5. ASSESSMENT: 1. The patient has got a right toe infection cannot rule out osteomyelitis. Because of peripheral neuropathy, patient may have decreased pain. X-ray did not show obvious involvement of the bone, but the CRP is high. 2. Alzheimer's dementia late onset type. 3. Essential hypertension. 4. Hypothyroid. 5. Chronic gait dysfunction uses a walker. PLAN: At this point, patient is put on IV Unasyn. We will order a three-phase bone scan. Home medications will be resumed. Lovenox for DVT prophylaxis. Care was discussed with the son at the bedside. Questions were answered. We will also get an ID opinion. Copy to visiting physician Dr. Russell. KYM / DARREN: [id number] /
[2017-10-02] MEDS ORDERED: MELATONIN 3 MG TABLET PO PRN (21:00)
[2017-10-02] MEDS ORDERED: LORazepam 1 MG TAB PO PRN (21:24)
[2017-10-02] MEDS: ENOXAPARIN 40 MG/0.4 ML SYRINGE SQ SCH (21:27)
[2017-10-02] MEDS: METOPROLOL TARTRATE 25 MG TAB PO SCH (21:28)
[2017-10-02 21:43] LABS: Glucose,Whole Blood 208 mg/dL (75-99)
[2017-10-03] MEDS ORDERED: AMPICILLIN-SULBACTAM 1.5 GM in SODIUM CHLORIDE 0.9% 50 ML IVPB SCH ×2
[2017-10-03 03:50] LABS: Hemoglobin A1C 7.3 % (4.0-6.0)
[2017-10-03 08:03] LABS: Glucose,Whole Blood 146 mg/dL (75-99)
[2017-10-03] MEDS: CARBAMIDE PEROXIDE 6.5% DROPS 15 ML BTL BOTH EARS SCH ×4 (08:26→21:22)
[2017-10-03] MEDS: LEVOTHYROXINE 25 MCG TAB PO SCH (09:40)
[2017-10-03] MEDS: ASPIRIN 81 MG PO SCH (09:40)
[2017-10-03] MEDS: MEMANTINE 10 MG TAB PO SCH (09:40)
[2017-10-03] MEDS: LISINOPRIL 5 MG TAB PO SCH (09:40)
[2017-10-03] MEDS: ENOXAPARIN 40 MG/0.4 ML SYRINGE SQ SCH (09:40)
[2017-10-03] MEDS: CYANOCOBALAMIN 500 MCG TAB PO SCH (09:40)
[2017-10-03] MEDS: METOPROLOL TARTRATE 25 MG TAB PO SCH ×2 (09:40→21:22)
[2017-10-03] MEDS: INSULIN ASPART 100 UNIT/ML 1 ML 10 ML VIAL SQ SCH ×4 (09:44→22:47)
[2017-10-03] MEDS: AMPICILLIN-SULBACTAM 1.5 GM in SODIUM CHLORIDE 0.9% 50 ML IVPB SCH ×2 (10:34→15:59)
[2017-10-03] MEDS ORDERED: VANCOMYCIN IV PER PHARMACY 1 EACH MISC MISCELLANE SCH (10:45)
[2017-10-03 11:35] LABS: Glucose,Whole Blood 285 mg/dL (75-99)
[2017-10-03] MEDS: SODIUM CHLORIDE 0.9% 1,000 ML IV SCH ×2 (11:36→21:21)
--- NOTE | 2017-10-03 11:38 | P.CONS ---
History of Present Illness - Reason for Consult Consult date: 10/03/17 Toe wound - History of Present Illness This is a 72-year-old female patient who has been treated as an outpatient for toe infection with Keflex for 4 days. This is not improving and she was brought into [facility] emergency center for evaluation. Patient does have underlying dementia and significant confusion, short-term memory loss and unable to give accurate history. Patient's white count was normal at 8.4, she was afebrile. X-ray of the foot shows a fracture of the fifth metatarsal base and remote trauma to the proximal phalanx of the second and third digits. Wound culture and blood culture obtained and patient was placed on Unasyn. Lactic acid 0.8, C-reactive protein 12.5. Patient has bone scan ordered. Sitter is at the bedside. Review of Systems ROS unobtainable: due to mental status Past Medical History Past Medical History: Dementia, Diabetes Mellitus, Hypertension Additional Past Medical History / Comment(s): Pt recently admitted to [facility] on 07/29/17 with UTI/confusion d/t UTI or dementia, new onset diabetes. Other hx: hypothyroid. History of Any Multi-Drug Resistant Organisms: VRE Year Discovered:: 08/04/17 MDRO Source:: VRE URINE Past Surgical History: No Surgical Hx Reported Additional Past Anesthesia/Blood Transfusion Reaction / Comm: Pt has never had surgery before Past Psychological History: No Psychological Hx Reported Smoking Status: Never smoker Past Alcohol Use History: Rare Past Drug Use History: None Reported - Past Family History Sister(s) Family Medical History: Dementia Medications and Allergies Home Medications Medication Instructions Recorded Confirmed Type Memantine [Namenda] 10 mg PO DAILY tab 08/01/17 10/02/17 Rx Cyanocobalamin (Vitamin B-12) 1,000 mcg PO DAILY 09/11/17 10/02/17 History [Vitamin B-12] Levothyroxine Sodium [Synthroid] 25 mcg PO DAILY 09/11/17 10/02/17 History Aspirin 81 mg PO DAILY #30 chew 09/14/17 10/02/17 Rx Lisinopril [Zestril] 5 mg PO DAILY #30 tab 09/14/17 10/02/17 Rx Carbamide Peroxide [Debrox Otic] 1 drops BOTH EARS TID 10/02/17 10/02/17 History Metoprolol Tartrate [Lopressor] 25 mg PO BID 10/02/17 10/02/17 History Ertapenem [INVanz] 1 gm IVPB Q24H #42 bag 10/04/17 Rx Melatonin 3 mg PO HS PRN tablet 10/05/17 Rx Allergies Allergy/AdvReac Type Severity Reaction Status Date / Time No Known Allergies Allergy Verified 10/02/17 15:17 Physical Exam Vitals: Vital Signs Temp Pulse Resp BP Pulse Ox 10/03/17 08:09 87 16 193/109 94 L 10/03/17 07:00 98.1 F 88 19 145/71 100 10/03/17 02:10 78 20 148/76 96 10/02/17 21:26 73 20 153/80 98 10/02/17 12:05 97.7 F 64 17 120/60 99 Gen: This is a 72-year-old female patient. She is on the ER stretcher and appears to be comfortable and in no acute distress. HEENT: Head is atraumatic, normocephalic. Pupils equal, round. Sclerae is anicteric. NECK: Supple. No JVD. No lymphadenopathy. No thyromegaly. LUNGS: Clear to auscultation. No wheezes or rhonchi. No intercostal retractions. HEART: Regular rate and rhythm. No murmur. ABDOMEN: Soft. Bowel sounds are present. No masses. No tenderness. EXTREMITIES: No pedal edema. No calf tenderness. Dorsalis pedis +2 bilaterally. Patient has a wound on the medial side of the second left toe with erythema and edema on the toe and extending dorsally. Small amount of drainage. No foul order. NEUROLOGICAL: Patient is awake, alert and oriented to person. Cranial nerves 2 through 12 are grossly intact. No focal neuro deficit. Results Results: Laboratory Results WBC 8.4 k/uL (3.8-10.6) 10/02/17 14:54 RBC 4.31 m/uL (3.80-5.40) 10/02/17 14:54 Hgb 12.7 gm/dL (11.4-16.0) 10/02/17 14:54 Hct 37.8 % (34.0-46.0) 10/02/17 14:54 MCV 87.5 fL (80.0-100.0) 10/02/17 14:54 MCH 29.4 pg (25.0-35.0) 10/02/17 14:54 MCHC 33.5 g/dL (31.0-37.0) 10/02/17 14:54 RDW 12.0 % (11.5-15.5) 10/02/17 14:54 Plt Count 332 k/uL (150-450) 10/02/17 14:54 Neutrophils % 60 % 10/02/17 14:54 Lymphocytes % 24 % 10/02/17 14:54 Monocytes % 7 % 10/02/17 14:54 Eosinophils % 5 % 10/02/17 14:54 Basophils % 1 % 10/02/17 14:54 Neutrophils # 5.1 k/uL (1.3-7.7) 10/02/17 14:54 Lymphocytes # 2.1 k/uL (1.0-4.8) 10/02/17 14:54 Monocytes # 0.6 k/uL (0-1.0) 10/02/17 14:54 Eosinophils # 0.5 k/uL (0-0.7) 10/02/17 14:54 Basophils # 0.1 k/uL (0-0.2) 10/02/17 14:54 Sodium 138 mmol/L (137-145) 10/02/17 14:54 Potassium 4.5 mmol/L (3.5-5.1) 10/02/17 14:54 Chloride 101 mmol/L (98-107) 10/02/17 14:54 Carbon Dioxide 26 mmol/L (22-30) 10/02/17 14:54 Anion Gap 11 mmol/L 10/02/17 14:54 BUN 14 mg/dL (7-17) 10/02/17 14:54 Creatinine 0.60 mg/dL (0.52-1.04) 10/02/17 14:54 Est GFR (CKD-EPI)AfAm >90 (>60 ml/min/1.73 sqM) 10/02/17 14:54 Est GFR (CKD-EPI)NonAf >90 (>60 ml/min/1.73 sqM) 10/02/17 14:54 Glucose 119 mg/dL (74-99) H 10/02/17 14:54 POC Glucose (mg/dL) 285 mg/dL (75-99) H 10/03/17 11:32 POC Glu Bunghole Borer ID Roxy Ernandez 10/03/17 11:[address] Glu mg/dL 163 10/02/17 14:54 Hemoglobin A1c 7.3 % (4.0-6.0) H 10/02/17 14:54 Plasma Lactic Acid Manjinder 0.8 mmol/L (0.7-2.0) 10/02/17 14:54 Calcium 9.8 mg/dL (8.4-10.2) 10/02/17 14:54 C-Reactive Protein 12.5 mg/L (<10.0) H 10/02/17 14:54 CBC & Chem 7: 10/05/17 09:29 10/05/17 09:29 Labs: Abnormal Lab Results - Last 24 Hours (Table) 10/02/17 10/02/17 10/02/17 Range/Units 13:21 14:54 14:54 Glucose 119 H (74-99) mg/dL POC Glucose (mg/dL) 134 H (75-99) mg/dL Hemoglobin A1c 7.3 H (4.0-6.0) % C-Reactive Protein 12.5 H (<10.0) mg/L 10/02/17 10/02/17 10/02/17 Range/Units 15:48 18:07 21:35 Glucose (74-99) mg/dL POC Glucose (mg/dL) 110 H 199 H 208 H (75-99) mg/dL Hemoglobin A1c (4.0-6.0) % C-Reactive Protein (<10.0) mg/L 10/03/17 Range/Units 08:01 Glucose (74-99) mg/dL POC Glucose (mg/dL) 146 H (75-99) mg/dL Hemoglobin A1c (4.0-6.0) % C-Reactive Protein (<10.0) mg/L Microbiology - Last 24 Hours (Table) 10/02/17 16:20 Gram Stain - Preliminary Toe - Left First Wound Culture - Preliminary Assessment and Plan Plan: This is a 72-year-old female who presents to the hospital with failed outpatient treatment of a diabetic ulcer to the left second toe with Keflex. Patient has been started on Unasyn which will be continued and vancomycin will be added. X-ray as noted above. Wound culture will be obtained. Bone scan has been ordered. Continue supportive care. Further conditions as patient progresses. The above dictated assessment and findings were discussed with Dr. Alberts. The impression and plan of care have been directed as dictated. Rashmi Borja nurse practitioner acting as scribe for Dr. Alberts.
[2017-10-03] MEDS: VANCOMYCIN 1,000 MG in SODIUM CHLORIDE 0.9% 250 ML IVPB SCH ×2 (13:16→23:13)
--- NOTE | 2017-10-03 14:34 | NM ---
EXAMINATION TYPE: NM bone 3 phase DATE OF EXAM: 10/03/2017 COMPARISON: 10/02/2017 x-ray HISTORY: Swelling second digit Triple phase bone scintigraphy was performed following the injection of25.3 mCi Tc 99m MDP. Immediat e images and 3 hours post injection images acquired. FINDINGS: There is increased perfusion to the left ankle and foot There is increased soft tissue uptake overlying the second and third digit There is abnormal uptake involving the left tarsal bone the level of the navicular. There is abnormal uptake near the head of the second metatarsal. Uptake involving base fifth digit. IMPRESSION: Cellulitis and osteomyelitis second digit. X-ray abnormality corresponds to uptake seen involving the base of the fifth digit suggestive of frac ture.
[2017-10-03 18:09] LABS: Glucose,Whole Blood 140 mg/dL (75-99)
--- NOTE | 2017-10-03 19:17 | PN ---
PROGRESS NOTE DATE OF SERVICE: 10/03/2017 PRESENTING COMPLAINT: Fracture of the right second toe. INTERVAL HISTORY: This patient presented with infection and wound of the right second toe. Bone scan ordered yesterday has come back showing osteomyelitis of the same. Because of neuropathy, patient's pain is well controlled. Tolerating a diet. The patient is pleasantly confused at baseline. REVIEW OF SYSTEMS: Done for constitutional, cardiovascular, GI, pulmonary; relevant findings as above. CURRENT MEDICATIONS: Current medications are reviewed that include IV Unasyn. PHYSICAL EXAMINATION: On examination, afebrile, pulse 88, respiration 19, blood pressure 145/71, pulse ox 100% on room air. GENERAL APPEARANCE: Lying in bed, comfortable. EYES: Pupils equal. Conjunctivae normal. HEENT: External appearance of nose and ears normal. Oral cavity normal. Decreased hearing. NECK: JVD not raised. Mass not palpable. RESPIRATORY: Effort normal. Lungs are clear. CARDIOVASCULAR: First and second sounds normal. No edema. ABDOMEN: Soft, non-tender. Liver and spleen not palpable. PSYCHIATRY: Patient is pleasantly confused. EXTREMITIES: Right second toe inflamed with a wound on the lateral aspect. INVESTIGATION: Bone scan positive for osteomyelitis in the right second toe. ASSESSMENT: 1. Acute osteomyelitis of the right second toe that is metatarsal. 2. Acute fracture of the right fifth metatarsal base. 3. Alzheimer's dementia, late-onset type. 4. Essential hypertension. 5. Hypothyroid. 6. Chronic gait dysfunction; uses a walker. 7. Peripheral neuropathy, cause unknown; idiopathic. PLAN: Continue with IV vancomycin and Unasyn per Dr. Alberts. Will splint the fourth and fifth toe together. Patient's wound cultures are pending. MMODL / IJN: [id number] /
[2017-10-03 21:56] LABS: Glucose,Whole Blood 193 mg/dL (75-99)
--- NOTE | 2017-10-03 23:47 | P.CON ---
Consult Note - . Consult date: 10/03/17 Assessment/Plan:: This is a 72-year-old female patient who has been treated as an outpatient for toe infection with Keflex for 4 days. This is not improving and she was brought into [facility] emergency center for evaluation. Patient does have underlying dementia and significant confusion, short-term memory loss and unable to give accurate history. Patient's white count was normal at 8.4, she was afebrile. X-ray of the foot shows a fracture of the fifth metatarsal base and remote trauma to the proximal phalanx of the second and third digits. Wound culture and blood culture obtained and patient was placed on Unasyn. Lactic acid 0.8, C-reactive protein 12.5. Patient has bone scan ordered. Sitter is at the bedside. Patient's son is also available and relates that his mother has had a relatively rapid decline of her status in the last half a year. She was having increasing dementia and then became filled required hospitalization, she then went to the [facility] and this is now her second hospitalization since that has occurred. He is unaware how the foot injury has occurred is now resulted in the significant ulceration to the left foot at the second toe. The patient herself is a poor historian and seems to be comfortable and not in much pain. Please see the consult note is dictated by nurse practitioner Mrs. Rashmi Borja. 72-year-old woman who has a history of diabetes A1c is at 7.3, is a diabetic lower extremity ulceration of the left foot at the second toe with evidence of osteomyelitis. Wound care with medical Honey will be initiated that can be changed every other day to the ulceration. Antibiotic therapy with Unasyn and vancomycin are being utilized until cultures are available. We'll continue ongoing supportive care and will have to determine where she was able to go for discharge since she will likely need further antibiotic therapy the highest probability that it will be intravenous given the osteomyelitis. I agree with evaluation, assessment and plan as dictated by nurse practitioner Mrs. Rashmi Borja.
[2017-10-04] MEDS: AMPICILLIN-SULBACTAM 1.5 GM in SODIUM CHLORIDE 0.9% 50 ML IVPB SCH ×4 (01:25→23:32)
[2017-10-04] MEDS: LEVOTHYROXINE 25 MCG TAB PO SCH (06:00)
[2017-10-04 07:04] LABS: Glucose,Whole Blood 130 mg/dL (75-99)
[2017-10-04] MEDS: INSULIN ASPART 100 UNIT/ML 1 ML 10 ML VIAL SQ SCH ×4 (07:26→21:10)
[2017-10-04] MEDS: CYANOCOBALAMIN 500 MCG TAB PO SCH (08:46)
[2017-10-04] MEDS: ASPIRIN 81 MG PO SCH (08:46)
[2017-10-04] MEDS: MEMANTINE 10 MG TAB PO SCH (08:46)
[2017-10-04] MEDS: ENOXAPARIN 40 MG/0.4 ML SYRINGE SQ SCH (08:46)
[2017-10-04] MEDS: CARBAMIDE PEROXIDE 6.5% DROPS 15 ML BTL BOTH EARS SCH ×3 (08:46→21:04)
[2017-10-04] MEDS: METOPROLOL TARTRATE 25 MG TAB PO SCH ×2 (08:46→21:04)
[2017-10-04] MEDS: LISINOPRIL 5 MG TAB PO SCH (08:46)
[2017-10-04] MEDS: SODIUM CHLORIDE 0.9% 1,000 ML IV SCH (08:46)
[2017-10-04 11:40] LABS: Glucose,Whole Blood 234 mg/dL (75-99)
[2017-10-04] MEDS: VANCOMYCIN 1,000 MG in SODIUM CHLORIDE 0.9% 250 ML IVPB SCH ×2 (12:27→23:57)
--- NOTE | 2017-10-04 16:06 | PN ---
PROGRESS NOTE DATE OF SERVICE: 10/04/17. PRESENTING COMPLAINT: Osteomyelitis. INTERVAL HISTORY: This patient has got a osteomyelitis of the right 2nd toe on IV antibiotics, but because of neuropathy he has got no pain. Comfortable, tolerating a diet. Pleasantly confused at baseline. He has got a sitter. REVIEW OF SYSTEMS: Done for constitutional, cardiovascular, GI, pulmonary, musculoskeletal; relevant findings as above. CURRENT MEDICATIONS: Reviewed that include IV Unasyn and vancomycin. PHYSICAL EXAMINATION: Temperature 97.8, pulse 90, respiration 16, blood pressure 128/62, pulse ox 97% on room air. GENERAL APPEARANCE: Lying in bed comfortable, awake. EYES: Pupils equal. Conjunctivae normal. HEENT: External appearance of nose and ears normal. Oral cavity normal. Decreased hearing. NECK: JVD not raised. Mass not palpable. RESPIRATORY: Effort, lungs are clear. CARDIOVASCULAR: First and second sounds normal. No edema. ABDOMEN: Soft, nontender. Liver and spleen not palpable. PSYCHIATRY: The patient does answer simple questions. EXTREMITIES: Right 2nd toe inflamed with a wound on the lateral aspect. INVESTIGATIONS: Positive bone scan. Cultures pending. Accu-Cheks noted. ASSESSMENT: 1. Acute osteomyelitis of the right 2nd toe with cultures pending. 2. Acute fracture of the right 5th metatarsal base. 3. Alzheimer's dementia late onset type. 4. Essential hypertension. 5. Hypothyroid. 6. Chronic gait dysfunction, uses a walker. 7. Peripheral neuropathy, cause unknown, idiopathic. PLAN: Continue with IV vancomycin, Unasyn. We will order a PICC line. Antibiotics will be directed based on cultures. MMODL / IJN: [id number] /
[2017-10-04 16:56] LABS: Glucose,Whole Blood 150 mg/dL (75-99)
[2017-10-04 20:21] LABS: Glucose,Whole Blood 200 mg/dL (75-99)
--- NOTE | 2017-10-04 23:23 | P.PN ---
Subjective Progress Note Date: 10/04/17 This is a 72-year-old female patient who has been treated as an outpatient for toe infection with Keflex for 4 days. This is not improving and she was brought into [facility] emergency center for evaluation. Patient does have underlying dementia and significant confusion, short-term memory loss and unable to give accurate history. Patient's white count was normal at 8.4, she was afebrile. X-ray of the foot shows a fracture of the fifth metatarsal base and remote trauma to the proximal phalanx of the second and third digits. Wound culture and blood culture obtained and patient was placed on Unasyn. Lactic acid 0.8, C-reactive protein 12.5. Patient has bone scan ordered. Sitter is at the bedside. 10/04/2017 patient has some improvement today. She is quite comfortable. Continues evidence of the severe swelling to the left foot second toe where the ulceration is present. Drainage is improved. She is tolerating local wound care without problems. She denying fevers or chills. She does have severe dementia but seems comfortable Objective - Vital Signs Vital signs: Vital Signs Temp 97.6 F 10/04/17 14:54 Pulse 72 10/04/17 16:00 Resp 18 10/04/17 16:00 BP 148/80 10/04/17 14:54 Pulse Ox 100 10/04/17 14:54 Intake & Output 10/04/17 10/04/17 10/05/17 06:59 18:59 06:59 Intake Total 1867 2160 Balance 1867 2160 Intake: Intake, IV Titration 1087 600 Amount Sodium Chloride 0.9% 1, 1087 350 000 ml @ 75 mls/hr IV . [id number] HUE Rx#:[id number] Vancomycin 1,000 mg In 250 Sodium Chloride 0.9% 250 ml @ 125 mls/hr IVPB Q12H HUE Rx#:[id number] Oral 780 1560 Other: Voiding Method Toilet # Voids 2 15 - Exam Gen: This is a 72-year-old female patient. She is on the ER stretcher and appears to be comfortable and in no acute distress. HEENT: Head is atraumatic, normocephalic. Pupils equal, round. Sclerae is anicteric. NECK: Supple. No JVD. No lymphadenopathy. No thyromegaly. LUNGS: Clear to auscultation. No wheezes or rhonchi. No intercostal retractions. HEART: Regular rate and rhythm. No murmur. ABDOMEN: Soft. Bowel sounds are present. No masses. No tenderness. EXTREMITIES: No pedal edema. No calf tenderness. Dorsalis pedis +2 bilaterally. Patient has a wound on the medial side of the second left toe with erythema and edema on the toe and extending dorsally. The ulceration seems to rope to bone and there is still some purulent drainage. The swelling is similar as to admission. It is only minimally tender. NEUROLOGICAL: Patient is awake, alert and oriented to person. - Labs CBC & Chem 7: 10/02/17 14:54 10/02/17 14:54 Labs: Abnormal Lab Results - Last 24 Hours (Table) 10/04/17 10/04/17 10/04/17 Range/Units 07:01 11:34 16:54 POC Glucose (mg/dL) 130 H 234 H 150 H (75-99) mg/dL 10/04/17 Range/Units 20:20 POC Glucose (mg/dL) 200 H (75-99) mg/dL Microbiology - Last 24 Hours (Table) 10/02/17 16:20 Gram Stain - Final Toe - Left First Wound Culture - Final Laboratory Results WBC 8.4 k/uL (3.8-10.6) 10/02/17 14:54 RBC 4.31 m/uL (3.80-5.40) 10/02/17 14:54 Hgb 12.7 gm/dL (11.4-16.0) 10/02/17 14:54 Hct 37.8 % (34.0-46.0) 10/02/17 14:54 MCV 87.5 fL (80.0-100.0) 10/02/17 14:54 MCH 29.4 pg (25.0-35.0) 10/02/17 14:54 MCHC 33.5 g/dL (31.0-37.0) 10/02/17 14:54 RDW 12.0 % (11.5-15.5) 10/02/17 14:54 Plt Count 332 k/uL (150-450) 10/02/17 14:54 Neutrophils % 60 % 10/02/17 14:54 Lymphocytes % 24 % 10/02/17 14:54 Monocytes % 7 % 10/02/17 14:54 Eosinophils % 5 % 10/02/17 14:54 Basophils % 1 % 10/02/17 14:54 Neutrophils # 5.1 k/uL (1.3-7.7) 10/02/17 14:54 Lymphocytes # 2.1 k/uL (1.0-4.8) 10/02/17 14:54 Monocytes # 0.6 k/uL (0-1.0) 10/02/17 14:54 Eosinophils # 0.5 k/uL (0-0.7) 10/02/17 14:54 Basophils # 0.1 k/uL (0-0.2) 10/02/17 14:54 Sodium 138 mmol/L (137-145) 10/02/17 14:54 Potassium 4.5 mmol/L (3.5-5.1) 10/02/17 14:54 Chloride 101 mmol/L (98-107) 10/02/17 14:54 Carbon Dioxide 26 mmol/L (22-30) 10/02/17 14:54 Anion Gap 11 mmol/L 10/02/17 14:54 BUN 14 mg/dL (7-17) 10/02/17 14:54 Creatinine 0.60 mg/dL (0.52-1.04) 10/02/17 14:54 Est GFR (CKD-EPI)AfAm >90 (>60 ml/min/1.73 sqM) 10/02/17 14:54 Est GFR (CKD-EPI)NonAf >90 (>60 ml/min/1.73 sqM) 10/02/17 14:54 Glucose 119 mg/dL (74-99) H 10/02/17 14:54 POC Glucose (mg/dL) 200 mg/dL (75-99) H 10/04/17 20:20 POC Glu Cryptologist ADAN Anamaria Zarate 10/04/17 20:[address] Glu mg/dL 163 10/02/17 14:54 Hemoglobin A1c 7.3 % (4.0-6.0) H 10/02/17 14:54 Plasma Lactic Acid Manjinder 0.8 mmol/L (0.7-2.0) 10/02/17 14:54 Calcium 9.8 mg/dL (8.4-10.2) 10/02/17 14:54 C-Reactive Protein 12.5 mg/L (<10.0) H 10/02/17 14:54 Microbiology 10/02/17 16:20 Toe - Left First Gram Stain - Final 10/02/17 16:20 Toe - Left First Wound Culture - Final Assessment and Plan (1) Dementia Current Visit: Yes Status: Acute Code(s): F03.90 - UNSPECIFIED DEMENTIA WITHOUT BEHAVIORAL DISTURBANCE SNOMED Code(s): 20292042 (2) Diabetic ulcer of left foot associated with diabetes mellitus due to underlying condition, with necrosis of bone Narrative/Plan: 72-year-old woman who has a history of diabetes A1c is at 7.3, is a diabetic lower extremity ulceration of the left foot at the second toe with evidence of osteomyelitis. Wound care with medical Honey will be initiated that can be changed every other day to the ulceration. Antibiotic therapy with Unasyn and vancomycin are being utilized until cultures are available. 10/04/2017 today the patient remains similar. She remains with her altered mental status from her dementia. This seemed to be comfortable. The current dressing seems to be helping the ulceration. The toe swelling is slowly improved. Intravenous antibiotic therapy will be planned in the outpatient setting. Cultures are negative but likely will be able to be treated with once a day ertapenem given the diabetic foot ulceration with the bony necrosis. Elevation of the limb at rest is helpful. Continue to control her diabetes is crucial. She needs to have good protein intake which is been a difficulty and protein supplements are requested. A multivitamin with zinc is been requested and she'll be utilized. The patient will be followed in the wound healing center after discharge for her significant diabetic foot ulcerations. It is not clear if she'll be going to the home setting with some or going to extended care facility. In the buttocks for outpatient infusion have been written and await input from insurance as to what the options will be as well as family plan. Current Visit: Yes Status: Acute Code(s): E08.621 - DIABETES MELLITUS DUE TO UNDERLYING CONDITION W FOOT ULCER; L97.524 - NON-PRS CHRONIC ULCER OTH PRT LEFT FOOT W NECROSIS OF BONE SNOMED Code(s): 541969590
[2017-10-05 07:25] LABS: Glucose,Whole Blood 135 mg/dL (75-99)
[2017-10-05 07:58] VITALS: BP 176/81; RESP 18
[2017-10-05] MEDS: CYANOCOBALAMIN 500 MCG TAB PO SCH (08:13)
[2017-10-05] MEDS: LEVOTHYROXINE 25 MCG TAB PO SCH (08:13)
[2017-10-05] MEDS: ASPIRIN 81 MG PO SCH (08:13)
[2017-10-05] MEDS: MEMANTINE 10 MG TAB PO SCH (08:13)
[2017-10-05] MEDS: METOPROLOL TARTRATE 25 MG TAB PO SCH (08:13)
[2017-10-05] MEDS: LISINOPRIL 5 MG TAB PO SCH (08:13)
[2017-10-05] MEDS: INSULIN ASPART 100 UNIT/ML 1 ML 10 ML VIAL SQ SCH ×2 (08:14→13:32)
[2017-10-05] MEDS: CARBAMIDE PEROXIDE 6.5% DROPS 15 ML BTL BOTH EARS SCH (08:15)
[2017-10-05] MEDS: AMPICILLIN-SULBACTAM 1.5 GM in SODIUM CHLORIDE 0.9% 50 ML IVPB SCH (08:18)
[2017-10-05 09:42] LABS: Basophils # (A) 0.1 k/uL (0-0.2); Basophils % (A) 1 %; Eosinophils # (A) 0.6 k/uL (0-0.7); Eosinophils % (A) 9 %; HCT 36.6 % (34.0-46.0); HGB 12.4 gm/dL (11.4-16.0); Lymphocytes # (A) 1.2 k/uL (1.0-4.8); Lymphocytes % (A) 17 %; MCH 29.4 pg (25.0-35.0); MCHC 33.8 g/dL (31.0-37.0); MCV 86.9 fL (80.0-100.0); Mean Platelet Volume 6.9; Monocytes # (A) 0.5 k/uL (0-1.0); Monocytes % (A) 6 %; Neutrophils # (A) 4.9 k/uL (1.3-7.7); Neutrophils % (A) 65 %; Platelet Count 331 k/uL (150-450); RBC 4.21 m/uL (3.80-5.40); RDW 11.8 % (11.5-15.5); WBC 7.4 k/uL (3.8-10.6)
[2017-10-05 09:55] LABS: Partial Thromboplastin Time 24.5 sec (22.0-30.0); Prothrombin Time 10.2 sec (9.0-12.0)
[2017-10-05] MEDS ORDERED: VANCOMYCIN TROUGH DUE 1 EACH MISC MISCELLANE ONE (10:00)
[2017-10-05 10:03] LABS: Anion Gap 8 mmol/L; Blood Urea Nitrogen 17 mg/dL (7-17); Calcium 9.4 mg/dL (8.4-10.2); Carbon Dioxide 28 mmol/L (22-30); Chloride 103 mmol/L (98-107); Glucose 199 mg/dL (74-99); Potassium 4.1 mmol/L (3.5-5.1); Sodium 139 mmol/L (137-145)
[2017-10-05] MEDS ORDERED: LIDOCAINE 2% INJ 20 MG/ML SQ ONE (10:45)
[2017-10-05 11:17] LABS: Glucose,Whole Blood 163 mg/dL (75-99)
[2017-10-05] MEDS: VANCOMYCIN 1,000 MG in SODIUM CHLORIDE 0.9% 250 ML IVPB SCH (11:30)
--- NOTE | 2017-10-05 11:44 | IR ---
PICC LINE PLACEMENT: HISTORY: Infection requiring long-term antibiotic therapy PROCEDURE: Ultrasound and fluoroscopic guidance of PICC line placement. COMPLICATIONS: None ANESTHESIA: 1. 1% Lidocaine locally. FINDINGS/TECHNIQUE: The procedure was explained to the patient. The risks, complications, benefits and alternatives were discussed and any questions were answered. Informed consent was obtained. The patient was placed supine on the fluoroscopic table and prepped and draped in the usual sterile [facility] ion. Utilizing a 21 gauge needle and sonographic and fluoroscopic guidance, access in the vein was achieved and there is placement of a 0.018 guidewire. The vein is patent. A 4-F sheath was placed o candace the guidewire. The guidewire and dilator were removed and a 4-F. PICC line was placed through th e sheath with the tip at the level of the SVC. The sheath was removed, the catheter was flushed and sutured into position. The patient was stable throughout the procedure and remained stable upon disc harge from the Department of Radiology. The vein puncture was patent under ultrasound. A diez scale image was obtained to document patency of the vein punctured. All elements of the maximal barrier technique were utilized. FLUOROSCOPY TIME: 0.1 minute, one image submitted IMPRESSION: Successful PICC line placement under ultrasound and fluoroscopic guidance.
[2017-10-05 15:41] VITALS: PULSE 67; TEMP 97.5
--- NOTE | 2017-10-05 16:22 | DS ---
DISCHARGE SUMMARY DATE OF ADMISSION: 10/02/2017. DATE OF DISCHARGE: 10/05/2017 FINAL DIAGNOSES: 1. Acute osteomyelitis of right second toe with cultures negative. This is primary osteomyelitis. 2. Acute fracture of the right fifth metatarsal base. 3. Alzheimer's dementia, late-onset type. 4. Essential hypertension. 5. Hypothyroid. 6. Chronic gait dysfunction; uses a walker. 7. Peripheral neuropathy, idiopathic; cause unknown. HOSPITAL COURSE: This very pleasant lady has dementia. She has peripheral neuropathy and presented with osteomyelitis of the right second toe as confirmed by a bone scan. Cultures came back negative. Patient is responding well to IV Unasyn and vancomycin. Patient will be discharged on IV Invanz per Dr. Alberts. Patient has the fracture as above, and only the 2 adjoining fingers need to be taped together. On exam, patient is pleasantly confused. Tolerating a diet. Lungs are clear. CARDIOVASCULAR: First and second sounds normal. Patient has a wound from osteomyelitis on the lateral aspect of the right second toe. DISCHARGE MEDICATIONS: 1. Namenda 10 mg p.o. daily. 2. Vitamin B12 1000 mcg p.o. daily. 3. Synthroid 25 mcg p.o. daily. 4. Aspirin 81 mg p.o. daily. 5. Zestril 5 mg p.o. daily. 6. Debrox Otic 1 drop both eyes t.i.d. 7. Lopressor 25 mg p.o. b.i.d. 8. Invanz 1 gram IV piggyback q.24 hours for 42 days. 9. Melatonin 3 mg at bedtime p.r.n. DISPOSITION: [facility]. Follow up with Dr. Millan at [facility]. Follow up with Dr. Alberts in 2 weeks. Follows up with Visiting Physician Dr. uRssell after discharge from [facility]. Wound care to continue per Dr. Alberts. Coordination of care and discharge planning more than 35 minutes. MMODL / IJN: [id number] /
[2017-10-05] MEDS ORDERED: ENOXAPARIN 40 MG/0.4 ML SYRINGE SQ SCH (20:00)
== END 2017-10-05 17:00 | DRG 638 ==
LOC: EC 11:37 → 4MS4W 16:56 → 5MS5E 10-03 12:05
PROVIDERS: ADMIT Hospitalist; ATTEND Hospitalist
PROC: 02HV33Z Insertion of Infusion Device into Superior Vena Cava, Percutaneous Approach (ICD-10-PCS; principal; 2017-10-05 10:45)
DX: E11.69 Type 2 diabetes mellitus with other specified complication (principal); M86.171 Other acute osteomyelitis, right ankle and foot; E11.621 Type 2 diabetes mellitus with foot ulcer; L97.529 Non-pressure chronic ulcer of other part of left foot with unspecified severity; G30.1 Alzheimer's disease with late onset; F02.80 Dementia in other diseases classified elsewhere, unspecified severity, without behavioral disturbance, psychotic disturbance, mood disturbance, and anxiety; S92.351A Displaced fracture of fifth metatarsal bone, right foot, initial encounter for closed fracture; I10 Essential (primary) hypertension; G60.9 Hereditary and idiopathic neuropathy, unspecified; E03.9 Hypothyroidism, unspecified; R26.9 Unspecified abnormalities of gait and mobility; Z79.82 Long term (current) use of aspirin; Z79.4 Long term (current) use of insulin; Z79.899 Other long term (current) drug therapy; Z87.440 Personal history of urinary (tract) infections; Z86.19 Personal history of other infectious and parasitic diseases
CPT/HCPCS: 36415; 36569; 76937; 77001; 78315; 80048; 80202; 83036; 83605; 85025; 85610; 85730; 86140; 87070; 87205; 96361; 96365; 96366; 96372; 99284

== ENCOUNTER 2018-07-26 11:38 | Inpatient (IN) | payer MEDICARE, BC ==
[2018-07-26] MEDS ORDERED: SODIUM CHLORIDE 0.9% 500 ML 500 ML IV STA (11:45)
[2018-07-26] MEDS ORDERED: SODIUM CHLORIDE 0.9% 1,000 ML IV STA (11:45)
--- NOTE | 2018-07-26 11:51 | ED ---
General Adult HPI - General Stated complaint: jaundice Time Seen by Provider: 07/26/18 11:38 Source: patient, EMS, RN notes reviewed, old records reviewed Mode of arrival: EMS - History of Present Illness Initial comments: This is a 73-year-old female history of hypertension and dementia diabetes UTI and metabolic encephalopathy in the past who was brought in for evaluation of jaundice. Per paramedics she was noted to be appearing jaundice like per staff at the [facility] home or she resides patient has no history of any jaundice liver disease gallbladder disease that is known. His been no reports of fevers chills nausea vomiting sweats diarrhea constipation dysuria hematuria or other symptoms. No other modifying factors. Patient states she has no complaints at this time. - Related Data Home Medications Medication Instructions Recorded Confirmed Cyanocobalamin (Vitamin B-12) 1,000 mcg PO DAILY 09/11/17 07/26/18 [Vitamin B-12] Levothyroxine Sodium [Synthroid] 25 mcg PO DAILY 09/11/17 07/26/18 Metoprolol Tartrate [Lopressor] 25 mg PO BID 10/02/17 07/26/18 Acetaminophen [Tylenol] 650 mg PO Q4H PRN 07/26/18 07/26/18 Docusate [Colace] 100 mg PO DAILY 07/26/18 07/26/18 Insulin Aspart [NovoLOG See Protocol SQ AC-TID 07/26/18 07/26/18 (formulary)] Loperamide [Imodium] 2 mg PO TID PRN 07/26/18 07/26/18 Magnesium Hydroxide [Milk of 2,400 mg PO DAILY PRN 07/26/18 07/26/18 Magnesia] Mylanta 15 ml PO BID PRN 07/26/18 07/26/18 Polyethylene Glycol 3350 [Miralax] 17 gm PO DAILY 07/26/18 07/26/18 QUEtiapine [SEROquel] 25 mg PO HS 07/26/18 07/26/18 Tolterodine ER [Detrol LA] 4 mg PO DAILY 07/26/18 07/26/18 busPIRone HCL [Buspar] 7.5 mg PO BID 07/26/18 07/26/18 diphenhydrAMINE & Zinc Cream 1 applic TOPICAL QID PRN 07/26/18 07/26/18 [Benadryl Cream] Previous Rx's Medication Instructions Recorded Memantine [Namenda] 10 mg PO DAILY tab 08/01/17 Aspirin 81 mg PO DAILY #30 chew 09/14/17 Lisinopril [Zestril] 5 mg PO DAILY #30 tab 09/14/17 Allergies Allergy/AdvReac Type Severity Reaction Status Date / Time No Known Allergies Allergy Verified 07/26/18 12:05 Review of Systems ROS Statement: Those systems with pertinent positive or pertinent negative responses have been documented in the HPI. ROS Other: All systems not noted in ROS Statement are negative. Past Medical History Past Medical History: Dementia, Diabetes Mellitus, Hypertension Additional Past Medical History / Comment(s): Pt recently admitted to [facility] on 07/29/17 with UTI/confusion d/t UTI or dementia, new onset diabetes. Other hx: hypothyroid. History of Any Multi-Drug Resistant Organisms: VRE Date of last positivie culture/infection: 08/04/17 MDRO Source:: VRE URINE Past Surgical History: No Surgical Hx Reported Additional Past Anesthesia/Blood Transfusion Reaction / Comment(s): Pt has never had surgery before Past Psychological History: No Psychological Hx Reported Smoking Status: Never smoker Past Alcohol Use History: Rare Past Drug Use History: None Reported - Past Family History Sister(s) Family Medical History: Dementia General Exam - General Exam Comments Initial Comments: This is a well-developed well-nourished awake alert female in no apparent distress General appearance: alert, in no apparent distress Head exam: Present: atraumatic, normocephalic, normal inspection Eye exam: Present: normal appearance, PERRL, EOMI. Absent: scleral icterus, conjunctival injection, periorbital swelling ENT exam: Present: mucous membranes dry Neck exam: Present: normal inspection, full ROM, other. Absent: tenderness, meningismus, lymphadenopathy Respiratory exam: Present: normal lung sounds bilaterally. Absent: respiratory distress, wheezes, rales, rhonchi, stridor Cardiovascular Exam: Present: regular rate, normal rhythm, normal heart sounds. Absent: systolic murmur, diastolic murmur, rubs, gallop, clicks GI/Abdominal exam: Present: soft, normal bowel sounds. Absent: distended, tenderness, guarding, rebound, rigid, bruit, pulsatile mass, hernia Rectal exam: Present: deferred Extremities exam: Present: normal inspection, full ROM, normal capillary refill. Absent: tenderness, pedal edema, joint swelling, calf tenderness Back exam: Present: normal inspection Neurological exam: Present: alert, oriented X3, CN II-XII intact Psychiatric exam: Present: normal affect, normal mood Skin exam: Present: warm, dry, intact, normal color. Absent: rash Course Vital Signs 07/26/18 07/26/18 07/26/18 11:43 12:00 12:30 Temperature 98.1 F Pulse Rate 70 66 62 Respiratory 18 20 20 Rate Blood Pressure 125/73 125/73 115/69 O2 Sat by Pulse 99 97 99 Oximetry 07/26/18 07/26/18 07/26/18 13:00 13:30 14:00 Temperature Pulse Rate 64 64 68 Respiratory 20 18 18 Rate Blood Pressure 128/67 127/71 138/72 O2 Sat by Pulse 98 98 98 Oximetry 07/26/18 07/26/18 07/26/18 14:30 15:00 15:30 Temperature Pulse Rate 68 68 67 Respiratory 18 18 18 Rate Blood Pressure 117/64 139/78 124/75 O2 Sat by Pulse 98 97 99 Oximetry Medical Decision Making - Medical Decision Making I did discuss [employer] the patient and her family member. Patient be admitted for evaluation of the gallstones as well as the jaundice. I did discuss the case Dr. houston. GI will be consulted. Patient did request food I did inform her that she could not eat as it could hurt her and make symptoms much worse. - Lab Data Result diagrams: 07/26/18 11:50 07/26/18 11:50 Lab Results 07/26/18 07/26/18 07/26/18 Range/Units 11:50 11:50 11:50 WBC 9.0 (3.8-10.6) k/uL RBC 4.48 (3.80-5.40) m/uL Hgb 13.4 (11.4-16.0) gm/dL Hct 40.1 (34.0-46.0) % MCV 89.4 (80.0-100.0) fL MCH 29.9 (25.0-35.0) pg MCHC 33.5 (31.0-37.0) g/dL RDW 12.7 (11.5-15.5) % Plt Count 211 (150-450) k/uL Neutrophils % 53 % Lymphocytes % 22 % Monocytes % 9 % Eosinophils % 12 % Basophils % 1 % Neutrophils # 4.8 (1.3-7.7) k/uL Lymphocytes # 2.0 (1.0-4.8) k/uL Monocytes # 0.8 (0-1.0) k/uL Eosinophils # 1.0 H (0-0.7) k/uL Basophils # 0.1 (0-0.2) k/uL Sodium 137 (137-145) mmol/L Potassium 4.2 (3.5-5.1) mmol/L Chloride 105 (98-107) mmol/L Carbon Dioxide 24 (22-30) mmol/L Anion Gap 8 mmol/L BUN 19 H (7-17) mg/dL Creatinine 0.85 (0.52-1.04) mg/dL Est GFR (CKD-EPI)AfAm 78 (>60 ml/min/1.73 sqM) Est GFR (CKD-EPI)NonAf 68 (>60 ml/min/1.73 sqM) Glucose 172 H (74-99) mg/dL Calcium 9.2 (8.4-10.2) mg/dL Magnesium 2.0 (1.6-2.3) mg/dL Total Bilirubin 5.3 H (0.2-1.3) mg/dL AST 182 H (14-36) U/L ALT 193 H (9-52) U/L Alkaline Phosphatase 142 H (38-126) U/L Total Creatine Kinase 45 (30-135) U/L CK-MB (CK-2) 0.6 (0.0-2.4) ng/mL CK-MB (CK-2) Rel Index 1.3 Total Protein 7.4 (6.3-8.2) g/dL Albumin 3.6 (3.5-5.0) g/dL Amylase 57 (30-110) U/L Lipase 212 (23-300) U/L - Radiology Data Radiology results: report reviewed (I did review the imaging and report is evidence of gallstones and a mildly thickened gallbladder wall no Desir sign. Please see the complete report), image reviewed Disposition Clinical Impression: Cholelithiasis, Jaundice, Elevated liver enzymes Disposition: ADMITTED IP TO THIS [facility] Condition: Stable Referrals: Carl Russell MD [Primary Care Provider] - 1-2 days
[2018-07-26 12:27] LABS: Basophils # (A) 0.1 k/uL (0-0.2); Basophils % (A) 1 %; Eosinophils % (A) 12 %; HCT 40.1 % (34.0-46.0); HGB 13.4 gm/dL (11.4-16.0); Lymphocytes % (A) 22 %; MCH 29.9 pg (25.0-35.0); MCHC 33.5 g/dL (31.0-37.0); MCV 89.4 fL (80.0-100.0); Monocytes # (A) 0.8 k/uL (0-1.0); Monocytes % (A) 9 %; Neutrophils # (A) 4.8 k/uL (1.3-7.7); Neutrophils % (A) 53 %; Platelet Count 211 k/uL (150-450); RBC 4.48 m/uL (3.80-5.40); RDW 12.7 % (11.5-15.5)
[2018-07-26 12:30] LABS: Albumin 3.6 g/dL (3.5-5.0); Calcium 9.2 mg/dL (8.4-10.2); Potassium 4.2 mmol/L (3.5-5.1); Total Bilirubin 5.3 mg/dL (0.2-1.3); Total Protein 7.4 g/dL (6.3-8.2)
--- NOTE | 2018-07-26 12:37 | XR ---
EXAMINATION TYPE: XR chest 2V DATE OF EXAM: 07/26/2018 COMPARISON: 09/11/2017 HISTORY: Shortness of breath TECHNIQUE: Frontal and lateral views of the chest are obtained. FINDINGS: Scattered senescent parenchymal changes noted. Hyperinflation compatible with COPD. No evidence for infiltrate. No evidence for atelectasis. Heart size is stable. Mediastinal structures are stable and grossly unremarkable. No evidence for hilar prominence. Degenerative changes dorsal spine. IMPRESSION: 1. No evidence for acute pulmonary disease.
[2018-07-26 13:09] LABS: Creatine Kinase MB 0.6 ng/mL (0.0-2.4)
--- NOTE | 2018-07-26 14:21 | US ---
EXAMINATION TYPE: US gallbladder DATE OF EXAM: 07/26/2018 COMPARISON: NONE CLINICAL HISTORY: Pain. Painless Jaundice, pt poor historian EXAM MEASUREMENTS: Liver Length: 14.3 cm Gallbladder Wall: 0.3 cm CBD: 0.4 cm Right Kidney: 8.3 x 4.2 x 4.2 cm Difficult visualization due to very gassy pt Pancreas: Head wnl, body and tail obscured by overlying bowel gas Liver: wnl Gallbladder: Lumen filled with 2 large gallstones, wall upper limits of normal of thickness Evidence for sonographic Desir's sign: No CBD: wnl Right Kidney: wnl, lower pole obscured by overlying bowel gas IMPRESSION: 1. Cholelithiasis. 2. Gallbladder wall thickening at 0.31 cm is present. Correlate for cholecystitis.
[2018-07-26] MEDS ORDERED: HYDROmorphone 1 MG/ML 1 ML SYRINGE IVP PRN (15:36)
[2018-07-26] MEDS ORDERED: ONDANSETRON 4 MG/2 ML VIAL IVP PRN (15:36)
[2018-07-26] MEDS ORDERED: NALOXONE 0.4 MG/ML 1 ML VIAL IV PRN (15:36)
[2018-07-26] MEDS ORDERED: PIPERACILLIN-TAZOBACTAM 3.375 GM in SODIUM CHLORIDE 0.9% 100 ML IVPB STA (15:39)
[2018-07-26] MEDS: SODIUM CHLORIDE 0.9% 1,000 ML IV SCH (16:05)
[2018-07-26] MEDS ORDERED: LOPERAMIDE 2 MG CAP PO PRN (18:35)
[2018-07-26] MEDS ORDERED: diphenhydrAMINE 2% CREAM 28.4 GM TUBE TOPICAL PRN (18:35)
--- NOTE | 2018-07-26 18:44 | P.GSCN ---
History of Present Illness Consult date: 07/26/18 Reason for Consult: Cholelithiasis History of present illness: This is a 73-year-old female who was admitted to the medical service. Patient was admitted to the hospital for some complaints of abdominal pain. She is workup found evidence of choledocholithiasis. Past Medical History Past Medical History: Atrial Fibrillation, Dementia, Diabetes Mellitus, Hypertension, Thyroid Disorder Additional Past Medical History / Comment(s): hx of UTI/confusion hypothyroid.son stated since approx may 2018 pt has had intermitent rast mostly on her back but has c/o itching arms/legs.could'nt rememeber what it was called. 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 MDRO Source:: VRE URINE Past Surgical History: No Surgical Hx Reported Additional Past Anesthesia/Blood Transfusion Reaction / Comm: Pt has never had surgery before Smoking Status: Never smoker - Past Family History Sister(s) Family Medical History: Dementia Additional Family Medical History / Comment(s): a sister had cancer Brother(s) Family Medical History: Liver Disease Additional Family Medical History / Comment(s): #1 brother- etoh/cirrhosis, #2- lung ca, #3 prostate cancer Mother Family Medical History: No Reported History Additional Family Medical History / Comment(s): from old age Father Family Medical History: Myocardial Infarction ([place]) Medications and Allergies Home Medications Medication Instructions Recorded Confirmed Type Memantine [Namenda] 10 mg PO DAILY tab 08/01/17 07/26/18 Rx Cyanocobalamin (Vitamin B-12) 1,000 mcg PO DAILY 09/11/17 07/26/18 History [Vitamin B-12] Levothyroxine Sodium [Synthroid] 25 mcg PO DAILY 09/11/17 07/26/18 History Aspirin 81 mg PO DAILY #30 chew 09/14/17 07/26/18 Rx Lisinopril [Zestril] 5 mg PO DAILY #30 tab 09/14/17 07/26/18 Rx Metoprolol Tartrate [Lopressor] 25 mg PO BID 10/02/17 07/26/18 History Acetaminophen [Tylenol] 650 mg PO Q4H PRN 07/26/18 07/26/18 History Docusate [Colace] 100 mg PO DAILY 07/26/18 07/26/18 History Insulin Aspart [NovoLOG See Protocol SQ AC-TID 07/26/18 07/26/18 History (formulary)] Loperamide [Imodium] 2 mg PO TID PRN 07/26/18 07/26/18 History Magnesium Hydroxide [Milk of 2,400 mg PO DAILY PRN 07/26/18 07/26/18 History Magnesia] Mylanta 15 ml PO BID PRN 07/26/18 07/26/18 History Polyethylene Glycol 3350 [Miralax] 17 gm PO DAILY 07/26/18 07/26/18 History QUEtiapine [SEROquel] 25 mg PO HS 07/26/18 07/26/18 History Tolterodine ER [Detrol LA] 4 mg PO DAILY 07/26/18 07/26/18 History busPIRone HCL [Buspar] 7.5 mg PO BID 07/26/18 07/26/18 History diphenhydrAMINE & Zinc Cream 1 applic TOPICAL QID PRN 07/26/18 07/26/18 History [Benadryl Cream] Allergies Allergy/AdvReac Type Severity Reaction Status Date / Time No Known Allergies Allergy Verified 07/26/18 12:05 Surgical - Exam Vital Signs Temp Pulse Resp BP Pulse Ox 98.1 F 70 18 125/73 99 07/26/18 11:43 07/26/18 11:43 07/26/18 11:43 07/26/18 11:43 07/26/18 11:43 - General well developed, well nourished, no distress - Eyes PERRL - ENT normal pinna - Neck no masses - Respiratory normal expansion - Cardiovascular Rhythm: regular - Abdomen Abdomen: soft, non tender Results - Labs 07/26/18 11:50 07/26/18 11:50 Abnormal Lab Results - Last 24 Hours (Table) 07/26/18 07/26/18 Range/Units 11:50 11:50 Eosinophils # 1.0 H (0-0.7) k/uL BUN 19 H (7-17) mg/dL Glucose 172 H (74-99) mg/dL Total Bilirubin 5.3 H (0.2-1.3) mg/dL AST 182 H (14-36) U/L ALT 193 H (9-52) U/L Alkaline Phosphatase 142 H (38-126) U/L Diabetes panel 07/26/18 Range/Units 11:50 Sodium 137 (137-145) mmol/L Potassium 4.2 (3.5-5.1) mmol/L Chloride 105 (98-107) mmol/L Carbon Dioxide 24 (22-30) mmol/L BUN 19 H (7-17) mg/dL Creatinine 0.85 (0.52-1.04) mg/dL Glucose 172 H (74-99) mg/dL Calcium 9.2 (8.4-10.2) mg/dL AST 182 H (14-36) U/L ALT 193 H (9-52) U/L Alkaline Phosphatase 142 H (38-126) U/L Total Protein 7.4 (6.3-8.2) g/dL Albumin 3.6 (3.5-5.0) g/dL Calcium panel 07/26/18 Range/Units 11:50 Calcium 9.2 (8.4-10.2) mg/dL Albumin 3.6 (3.5-5.0) g/dL Pituitary panel 07/26/18 Range/Units 11:50 Sodium 137 (137-145) mmol/L Potassium 4.2 (3.5-5.1) mmol/L Chloride 105 (98-107) mmol/L Carbon Dioxide 24 (22-30) mmol/L BUN 19 H (7-17) mg/dL Creatinine 0.85 (0.52-1.04) mg/dL Glucose 172 H (74-99) mg/dL Calcium 9.2 (8.4-10.2) mg/dL Adrenal panel 07/26/18 Range/Units 11:50 Sodium 137 (137-145) mmol/L Potassium 4.2 (3.5-5.1) mmol/L Chloride 105 (98-107) mmol/L Carbon Dioxide 24 (22-30) mmol/L BUN 19 H (7-17) mg/dL Creatinine 0.85 (0.52-1.04) mg/dL Glucose 172 H (74-99) mg/dL Calcium 9.2 (8.4-10.2) mg/dL Total Bilirubin 5.3 H (0.2-1.3) mg/dL AST 182 H (14-36) U/L ALT 193 H (9-52) U/L Alkaline Phosphatase 142 H (38-126) U/L Total Protein 7.4 (6.3-8.2) g/dL Albumin 3.6 (3.5-5.0) g/dL Assessment and Plan Assessment: Cholelithiasis with choledocholithiasis. The patient will have her liver enzymes repeated in the a.m. She'll most likely need an ERCP. We'll follow with you.
[2018-07-26 20:50] LABS: Glucose,Whole Blood 195 mg/dL (75-99)
[2018-07-26] MEDS: busPIRone HCl 5 MG TAB PO SCH (21:43)
[2018-07-26] MEDS: diphenhydrAMINE 25 MG CAP PO PRN (21:44)
[2018-07-26] MEDS: METOPROLOL TARTRATE 25 MG TAB PO SCH (21:44)
[2018-07-26] MEDS: QUEtiapine 25 MG TAB PO SCH (21:44)
[2018-07-26] MEDS: INSULIN ASPART 100 UNIT/ML 1 ML 10 ML VIAL SQ SCH (21:44)
[2018-07-26] MEDS ORDERED: LORazepam 2 MG/ML INJ IV STA (23:17)
--- NOTE | 2018-07-26 23:43 | HP ---
HISTORY AND PHYSICAL DATE OF SERVICE: 07/26/2018 CHIEF COMPLAINT: Jaundice and abdominal pain. HISTORY OF PRESENT ILLNESS: This 73-year-old woman with a past medical history of multiple medical problems such as atrial ablation, history of dementia, diabetes, hypertension, hypothyroidism, history of UTI, confusion, being followed by Dr. Russell in the outpatient setting, was admitted with abdominal pain. The pain is intermittent in the right lower part. The patient came to [facility]. The patient was found to be jaundiced. Bilirubin 5.3, AST 182, ALT 193, alkaline phosphatase 142. Further evaluation including gallbladder ultrasound showed evidence of cholelithiasis and possible choledocholithiasis and cholecystitis. The patient admitted to the hospital for further evaluation and treatment. Surgical evaluation in progress. There is no history of fever, rigors or chills. No history of headache, loss of consciousness or seizures. PAST MEDICAL HISTORY: History of atrial ablation, history of dementia, history of diabetes, hypertension, hypothyroidism. MEDICATIONS: Home medications are: 1. Benadryl 1 q.i.d. p.r.n. 2. Buspar 7.5 p.o. b.i.d. 3. Detrol LA 4 mg p.o. daily. 4. Seroquel 25 mg q.h.s. 5. MiraLAX 17 g p.o. daily. 6. Mylanta 15 mL p.o. b.i.d. p.r.n. 7. Lopressor 25 mg p.o. b.i.d. 8. Namenda 10 mg p.o. daily. 9. Milk of Magnesia 2.4 g daily p.r.n. 10.Imodium 2 mg p.o. t.i.d. p.r.n. 11.Zestril 5 mg p.o. daily. 12.Synthroid 25 mcg p.o. daily. 13.NovoLog a.c. t.i.d. 14.Colace 100 mg. 15.Vitamin B12 1000 mcg p.o. daily. 16.Aspirin 81 mg daily. 17.Tylenol 650 q.4h p.r.n. ALLERGIES: None. FAMILY HISTORY: History of dementia. SOCIAL HISTORY: No history of smoking. No history of alcohol. REVIEW OF SYSTEMS: ENT: No diminished vision. No diminished hearing. CARDIOVASCULAR: No angina or palpitations. RESPIRATION: As mentioned earlier. GI: No nausea or vomiting. : No dysuria. CENTRAL NERVOUS SYSTEM: No numbness or weakness. ALLERGY/IMMUNOLOGY: No asthma or hayfever. MUSCULOSKELETAL: As mentioned earlier. HEMATOLOGY/ONCOLOGY: No history or anemia. ENDOCRINE: No history of diabetes or hypothyroidism. CONSTITUTIONAL: As mentioned earlier. Dermatology: Negative. Rheumatology: Negative. Psychiatry: As mentioned earlier. PHYSICAL EXAM: Patient is alert, oriented x3. The pulse is 70. Blood pressure 130/72, respirations 16, temperature 97.9, pulse ox 100 percent on room air. HEENT: Conjunctivae normal. Oral mucosa moist. NECK: No jugular venous distention. No carotid bruit. No lymph node enlargement. CARDIOVASCULAR: S1, S2 muffled. RESPIRATION: Breath sounds diminished in the bases. A few scattered rhonchi and crackles. ABDOMEN: Soft. Minimal tenderness in the right lower quadrant. No guarding. No rigidity. No mass palpable. LEGS: No edema. No swelling. NERVOUS SYSTEM: Higher functions as mentioned. Moves all four extremities. No focal motor or sensory deficits. Lymphatics: No lymph nodes palpable in the neck, axillae or groin. SKIN: No ulcer, rash, no bleeding. LAB STUDIES: At this time shows WBC 9, hemoglobin 13.4. Eosinophils 1 and glucose 172. LFTs are noted. ASSESSMENT: 1. Right upper quadrant abdominal pain, possibly cholelithiasis and cholecystitis. 2. Possible choledocholithiasis with the hyperbilirubinemia. 3. Increased AST, ALT, alkaline phosphatase, increased random blood sugar. 4. Atrial fibrillation. 5. Dementia. 6. Diabetes mellitus. 7. Hypertension. 8. Hypothyroidism. 9. FULL CODE. RECOMMENDATIONS AND DISCUSSION: In this 73-year-old woman who presented with multiple complex medical issues, we will monitor the patient closely, continue the current medications, management and symptomatic treatment. Otherwise, I would recommend continue with current medications. Surgical evaluation possibly ERCP and cholecystectomy. Prognosis guarded because of multiple complex medical issues. Further recommendations to follow. See orders for further details. We will also order repeat labs also. MMODL / IJN: [id number] /
[2018-07-27] MEDS: SODIUM CHLORIDE 0.9% 1,000 ML IV SCH ×2 (03:53→13:36)
[2018-07-27 04:10] LABS: Hemoglobin A1C 8.8 % (4.0-6.0)
[2018-07-27] MEDS: LEVOTHYROXINE 25 MCG TAB PO SCH (06:39)
[2018-07-27 06:58] LABS: Glucose,Whole Blood 133 mg/dL (75-99)
[2018-07-27] MEDS: INSULIN ASPART 100 UNIT/ML 1 ML 10 ML VIAL SQ SCH ×4 (08:16→21:52)
[2018-07-27] MEDS: busPIRone HCl 5 MG TAB PO SCH ×2 (08:24→21:51)
[2018-07-27] MEDS: ASPIRIN 81 MG PO SCH (08:24)
[2018-07-27] MEDS: MEMANTINE 10 MG TAB PO SCH (08:24)
[2018-07-27] MEDS: METOPROLOL TARTRATE 25 MG TAB PO SCH ×2 (08:25→21:51)
[2018-07-27] MEDS: LISINOPRIL 5 MG TAB PO SCH (08:25)
[2018-07-27] MEDS: DOCUSATE 100 MG CAP PO SCH (08:25)
[2018-07-27] MEDS: CYANOCOBALAMIN 500 MCG TAB PO SCH (08:25)
[2018-07-27] MEDS: OXYBUTYNIN 10 MG TAB.ER.24 PO SCH (08:26)
[2018-07-27] MEDS: PANTOPRAZOLE 40 MG/10 ML VIAL IV SCH (08:26)
[2018-07-27] MEDS: POLYETHYLENE GLYCOL 3350 17 GM POWD.PACK PO SCH (08:26)
[2018-07-27] MEDS: diphenhydrAMINE 25 MG CAP PO PRN (12:06)
[2018-07-27 12:07] LABS: Glucose,Whole Blood 214 mg/dL (75-99)
[2018-07-27 12:14] LABS: Basophils # (A) 0.1 k/uL (0-0.2); Basophils % (A) 1 %; Eosinophils % (A) 15 %; HCT 36.1 % (34.0-46.0); Lymphocytes # (A) 1.3 k/uL (1.0-4.8); Lymphocytes % (A) 21 %; MCH 29.9 pg (25.0-35.0); MCHC 33.1 g/dL (31.0-37.0); MCV 90.3 fL (80.0-100.0); Mean Platelet Volume 7.7; Monocytes # (A) 0.6 k/uL (0-1.0); Monocytes % (A) 10 %; Neutrophils # (A) 3.1 k/uL (1.3-7.7); Neutrophils % (A) 50 %; Platelet Count 166 k/uL (150-450); RDW 12.7 % (11.5-15.5); WBC 6.2 k/uL (3.8-10.6)
[2018-07-27 12:21] LABS: Albumin 2.8 g/dL (3.5-5.0); Calcium 8.6 mg/dL (8.4-10.2); Potassium 4.1 mmol/L (3.5-5.1); Total Bilirubin 4.8 mg/dL (0.2-1.3); Total Protein 6.1 g/dL (6.3-8.2)
--- NOTE | 2018-07-27 12:48 | P.PN ---
Progress Note - Text Progress Note Date: 07/27/18 The patient is slightly improved from yesterday. Her liver function tests have improved. I discussed the son who is the power of district attorney regarding his mother. The patient has cholelithiasis causing issues with choledocholithiasis. If her liver function tests improve. She will undergo laparoscopic cholecystectomy. If she still has elevated LFTs we will perform an ERCP.
[2018-07-27 17:10] LABS: Glucose,Whole Blood 133 mg/dL (75-99)
--- NOTE | 2018-07-27 19:39 | CONS ---
CONSULTATION DATE OF SERVICE: 07/27/2018 IDENTIFYING DATA: This patient is a 73-year-old female who was admitted to the hospital for right upper quadrant pain. HISTORY OF PRESENT ILLNESS: The patient presented with right upper quadrant pain. She has been evaluated by Internal Medicine and Surgery. She is noted to have cholelithiasis and choledocholithiasis. She presented jaundiced with an elevated bilirubin. AST and ALT were markedly elevated. We were asked to consult because the patient made a statement about not wanting to live. The patient is found lying in bed. She has a sitter at bedside. Staff reports that the patient has been pleasant and cooperative. She has demonstrated no agitated behavior per the report. The patient indicates that she is feeling better than when she came in. She is reporting no suicidal ideation, intent, or plan. She states she has no history of any self-injurious behavior. She is reporting no homicidal ideation. She indicates that she has been treated in the past with psychiatric medicines. She is noted to have symptoms of anxiety and possibly a neurocognitive disorder. She is endorsing no auditory or visual hallucinations. No specific delusions. PAST PSYCHIATRIC HISTORY: She reports she has never been admitted to a psychiatric unit in the past. No history of suicide attempts. It is documented that she has been on BuSpar 7.5 mg twice daily in the past, Seroquel 25 mg at bedtime and Namenda 10 mg daily. No history of suicide attempts. PAST MEDICAL HISTORY: Cholelithiasis, choledocholithiasis, diabetes, hypertension, currently presenting with elevated AST, ALT of 180 [id number] respectively. Bilirubin at presentation 5.3. ALLERGIES: No known drug allergies. CHEMICAL DEPENDENCE HISTORY: None reported. MENTAL STATUS EXAM: The patient is alert. She is initially found resting in bed with her eyes closed. She is verbally arousable. She maintains alertness for the duration of our interaction. She indicates her mood is fine. She is feeling better physically. She indicates she does not want to proceed with surgery. It appears she is fearful of undergoing a procedure. It also appears she does not understand the risks and benefits of having or refusing the surgery. She reports having no active suicidal ideation, intent, or plan. She reports no homicidal ideation, intent, or plan. She is endorsing no current hallucinations. She demonstrates no acute evidence of psychosis. Objectively, she does not appear hypomanic or manic. She is oriented to being in [facility]. She incorrectly names the day of the week as Sunday. She does name the month as July and incorrectly names the year as 2001. She was able to register 3 words after 2 trials. After a brief delay of only 2 minutes, she could only recall 1 word. She could not get the other 2 words despite multiple choice cues. IMPRESSIONS: Delirium secondary to sequela of cholelithiasis, cholecystitis, choledocholithiasis. Rule out history of depression, anxiety, likely history of major neurocognitive disorder. PLAN: The patient does not appear to require a environmental health and safety intern at this time. It does not appear that she is acutely suicidal with intent or plan. Because of her cognitive impairment it is likely that she does not understand the implications of having or refusing the proposed surgery. Continue current medical treatment. She may continue her previous psychotropic medications. She will not require inpatient psychiatric hospitalization. MMBLUE / IJN: [id number] /
[2018-07-27 21:25] LABS: Glucose,Whole Blood 245 mg/dL (75-99)
[2018-07-27] MEDS: QUEtiapine 25 MG TAB PO SCH (21:52)
[2018-07-28] MEDS: SODIUM CHLORIDE 0.9% 1,000 ML IV SCH ×2 (05:17→16:51)
[2018-07-28] MEDS: LEVOTHYROXINE 25 MCG TAB PO SCH (06:51)
[2018-07-28 07:08] LABS: Glucose,Whole Blood 151 mg/dL (75-99)
--- NOTE | 2018-07-28 07:22 | PN ---
PROGRESS NOTE DATE OF SERVICE: 07/27/2018 This 73-year-old woman was admitted with jaundice and right upper quadrant abdominal pain, being closely monitored. No chest pain. No palpitations. No fever. Dr. Gerber is planning surgery at this time. The patient also has features of delirium. Dr. Gerber has recommended laparoscopic cholecystectomy. If LFTs are still elevated, recommend ERCP. EXAM: Alert and oriented x2. Pulse is 78, blood pressure n, respiration 18, temperature is 97.2, pulse ox 98% on room air. HEENT: Conjunctivae normal. Oral mucosa moist. NECK: No jugular venous distention. No lymph node enlargement. CARDIOVASCULAR: S1, S2. RESPIRATORY: Diminished breath sounds at the bases. No rhonchi or crackles. ABDOMEN: Soft, nontender. LEGS: No swelling. NERVOUS SYSTEM: No focal deficits. LABS: CBC within normal limits otherwise sodium 140, potassium 4.1, and albumin is 4.8. AST is 116. ASSESSMENT: 1. Right upper quadrant abdominal pain with possibly cholelithiasis and cholecystitis. 2. Possible choledocholithiasis with hyperbilirubinemia. 3. Increased AST, ALT, alkaline phosphatase. 4. Increased random blood sugar. 5. Atrial fibrillation. 6. Dementia. 7. Diabetes mellitus type 2. 8. Hypertension. 9. Hypothyroidism. 10.FULL CODE. RECOMMENDATIONS: Recommend to continue current management and symptomatic treatment. Otherwise, at this time I recommend repeat labs, closely follow with surgery. Guarded prognosis because of multiple complex medical issues. Continue empiric antibiotics. Further recommendation to follow. MMODL / IJN: [id number] / MTDD
[2018-07-28] MEDS: INSULIN ASPART 100 UNIT/ML 1 ML 10 ML VIAL SQ SCH ×4 (08:02→20:46)
[2018-07-28] MEDS: busPIRone HCl 5 MG TAB PO SCH ×2 (08:02→20:46)
[2018-07-28] MEDS: MEMANTINE 10 MG TAB PO SCH (08:03)
[2018-07-28] MEDS: LISINOPRIL 5 MG TAB PO SCH (08:03)
[2018-07-28] MEDS: METOPROLOL TARTRATE 25 MG TAB PO SCH ×2 (08:03→20:46)
[2018-07-28] MEDS: ASPIRIN 81 MG PO SCH (08:03)
[2018-07-28] MEDS: PANTOPRAZOLE 40 MG/10 ML VIAL IV SCH (08:04)
[2018-07-28] MEDS: CYANOCOBALAMIN 500 MCG TAB PO SCH (08:04)
[2018-07-28] MEDS: DOCUSATE 100 MG CAP PO SCH (08:04)
[2018-07-28] MEDS: OXYBUTYNIN 10 MG TAB.ER.24 PO SCH (08:05)
[2018-07-28] MEDS: POLYETHYLENE GLYCOL 3350 17 GM POWD.PACK PO SCH (08:05)
[2018-07-28 11:25] LABS: Basophils # (A) 0.1 k/uL (0-0.2); Basophils % (A) 1 %; Eosinophils % (A) 13 %; HCT 37.8 % (34.0-46.0); HGB 11.8 gm/dL (11.4-16.0); Hypochromasia Slight; Lymphocytes # (A) 1.7 k/uL (1.0-4.8); Lymphocytes % (A) 22 %; MCH 29.4 pg (25.0-35.0); MCHC 31.3 g/dL (31.0-37.0); MCV 93.8 fL (80.0-100.0); Monocytes # (A) 0.7 k/uL (0-1.0); Monocytes % (A) 10 %; Neutrophils # (A) 3.9 k/uL (1.3-7.7); Neutrophils % (A) 51 %; Platelet Count 164 k/uL (150-450); RBC 4.03 m/uL (3.80-5.40); WBC 7.7 k/uL (3.8-10.6)
[2018-07-28 11:44] LABS: Albumin 2.7 g/dL (3.5-5.0); Calcium 8.7 mg/dL (8.4-10.2); Potassium 4.1 mmol/L (3.5-5.1); Total Bilirubin 3.8 mg/dL (0.2-1.3); Total Protein 5.9 g/dL (6.3-8.2)
[2018-07-28 12:31] LABS: Glucose,Whole Blood 365 mg/dL (75-99)
--- NOTE | 2018-07-28 12:59 | P.PN ---
Progress Note - Text Progress Note Date: 07/28/18 The patient feels better today. She is less jaundiced. On exam her vital signs are stable. Her abdomen soft. Chronic cholecystitis with choledocholithiasis. Patient's liver tests are improving. We'll anticipate laparoscopic cholecystectomy on Sunday.
[2018-07-28] MEDS: diphenhydrAMINE 25 MG CAP PO PRN ×2 (15:34→19:32)
[2018-07-28 16:48] LABS: Glucose,Whole Blood 82 mg/dL (75-99)
[2018-07-28] MEDS: QUEtiapine 25 MG TAB PO SCH (20:46)
[2018-07-28 21:06] LABS: Glucose,Whole Blood 189 mg/dL (75-99)
--- NOTE | 2018-07-28 23:49 | PN ---
PROGRESS NOTE DATE OF SERVICE: 07/28/2018. HISTORY: This 73-year-old woman was admitted with acute cholelithiasis and choledocholithiasis, being evaluated by Dr. Gerber. The patient refused surgery. Psychiatric evaluation has been sought. The bilirubin is elevated, however, alkaline phosphatase is normal. There is no history of fevers or rigors. No chest pain or palpitations. EXAM: Alert oriented x3. Pulse is 68, blood pressure 140/84, respirations 16, temp 98.4, pulse ox 94% on room air. HEENT: Conjunctivae normal. NECK: Supple. No JVD. CARDIOVASCULAR: S1 and S2 muffled. LUNGS: Breath sounds diminished at the bases. No rhonchi or crackles. ABDOMEN: Soft, mild diffuse discomfort. No guarding, no rebound, no mass palpable. NERVOUS SYSTEM: No focal deficits. LABS: CBC within normal limits. Otherwise glucose 189. ASSESSMENT: 1. Right upper quadrant abdominal pain. Possibly cholelithiasis and cholecystitis. 2. Possible choledocholithiasis and hyperbilirubinemia. 3. Increased AST and ALT with normal alkaline phosphatase. 4. Increased random blood sugar. 5. Atrial fibrillation history. 6. Dementia. 7. Diabetes mellitus type 2. 8. Hypertension. 9. Hypothyroidism. 10.FULL CODE. RECOMMENDATIONS: Recommend to continue with current medications, monitoring and symptomatic treatment. Otherwise at this time I recommend to continue with current medications. Repeat labs. Surgery per Dr. Gerber. Further recommendations to follow. MMODL / IJN: [id number] /
[2018-07-29] MEDS: SODIUM CHLORIDE 0.9% 1,000 ML IV SCH ×2 (06:32→12:06)
[2018-07-29] MEDS: LEVOTHYROXINE 25 MCG TAB PO SCH (06:32)
[2018-07-29 07:15] LABS: Glucose,Whole Blood 169 mg/dL (75-99)
[2018-07-29] MEDS: ASPIRIN 81 MG PO SCH (08:06)
[2018-07-29] MEDS: INSULIN ASPART 100 UNIT/ML 1 ML 10 ML VIAL SQ SCH ×4 (08:06→20:17)
[2018-07-29] MEDS: busPIRone HCl 5 MG TAB PO SCH ×2 (08:06→20:17)
[2018-07-29] MEDS: MEMANTINE 10 MG TAB PO SCH (08:07)
[2018-07-29] MEDS: LISINOPRIL 5 MG TAB PO SCH (08:07)
[2018-07-29] MEDS: METOPROLOL TARTRATE 25 MG TAB PO SCH ×2 (08:07→20:17)
[2018-07-29] MEDS: PANTOPRAZOLE 40 MG/10 ML VIAL IV SCH (08:07)
[2018-07-29] MEDS: DOCUSATE 100 MG CAP PO SCH (08:07)
[2018-07-29] MEDS: OXYBUTYNIN 10 MG TAB.ER.24 PO SCH (08:07)
[2018-07-29] MEDS: CYANOCOBALAMIN 500 MCG TAB PO SCH (08:08)
[2018-07-29] MEDS: POLYETHYLENE GLYCOL 3350 17 GM POWD.PACK PO SCH (08:08)
[2018-07-29 10:17] LABS: Basophils # (A) 0.1 k/uL (0-0.2); Basophils % (A) 1 %; Eosinophils % (A) 12 %; HCT 37.3 % (34.0-46.0); HGB 11.8 gm/dL (11.4-16.0); Lymphocytes # (A) 1.7 k/uL (1.0-4.8); Lymphocytes % (A) 21 %; MCH 28.7 pg (25.0-35.0); MCHC 31.8 g/dL (31.0-37.0); MCV 90.4 fL (80.0-100.0); Mean Platelet Volume 7.5; Monocytes # (A) 0.6 k/uL (0-1.0); Monocytes % (A) 7 %; Neutrophils # (A) 4.4 k/uL (1.3-7.7); Neutrophils % (A) 56 %; Platelet Count 186 k/uL (150-450); RBC 4.12 m/uL (3.80-5.40); WBC 7.9 k/uL (3.8-10.6)
[2018-07-29 10:20] LABS: Calcium 8.8 mg/dL (8.4-10.2); Potassium 3.9 mmol/L (3.5-5.1); Total Bilirubin 3.4 mg/dL (0.2-1.3); Total Protein 6.3 g/dL (6.3-8.2)
[2018-07-29 11:52] LABS: Glucose,Whole Blood 178 mg/dL (75-99)
--- NOTE | 2018-07-29 14:17 | CDI ---
Documentation Clarification Form Date: 07/29/2018 2:02:54 PM From: Sandy Pelayo RN, CCDS Admit Date: 07/26/2018 3:39:00 PM Patient Name: Jacqueline Del Valle Visit Number: [id number] ATTENTION: The Clinical Documentation Specialists (CDI) and [facility] Coding Staff appreciate your assistance in clarifying documentation. Please respond to the clarification below the line at the bottom and electronically sign. The CDI & [facility] Coding staff will review the response and follow-up if needed. Please note: Queries are made part of the Legal Health Record. If you have any questions, please contact the author of this message via ITS. Dr. Cruz Bills Atrial Fibrillation is documented in the H&P and progress notes and requires further specificity. History/Risk Factors: Atrial Fib with atrial ablation, dementia, dm, htn, hypothyroid Clinical Indicators: 07/28 Att: Atrial fibrillation history EKG/telemetry: not being monitored Treatment: Lopressor 25 mg PO BID In your professional opinion, can you please clarify the type of Atrial Fibrillation, if known? Chronic/Permanent Paroxysmal Persistent Other, please specify Unable to determine (Last Revision: October 2017) Paroxysmal MTDD
--- NOTE | 2018-07-29 15:11 | P.PN ---
Progress Note - Text Progress Note Date: 07/29/18 The patient feels better today. Her jaundice has improved. Her liver enzymes have improved. On exam her vital signs are stable. Her abdomen soft. Symptomatically device. Patient undergo laparoscopic cholecystectomy in the a.m.
[2018-07-29 16:54] LABS: Glucose,Whole Blood 281 mg/dL (75-99)
--- NOTE | 2018-07-29 18:13 | PN ---
PROGRESS NOTE DATE OF SERVICE: 07/29/2018 This 73 -year-old woman was admitted with right upper quadrant abdominal pain had possibly cholelithiasis and cholecystitis. No chest pain. No palpitations. No fever. EXAM: Alert and oriented x3. Pulse is 57, blood pressure 150/64, respirations 16, temperature 97.4, pulse ox 97% on room air. HEENT: Conjunctivae normal. NECK: No jugular venous distention. CARDIOVASCULAR: S1, S2 muffled. RESPIRATORY: Breath sounds diminished in the bases. A few scattered rhonchi. No crackles. ABDOMEN is soft, nontender. LEGS are no edema, no swelling. CENTRAL NERVOUS SYSTEM: No focal deficits. LABS: Bilirubin 3.5, AST 95, ALT 115, improving. ASSESSMENT: 1. Right upper quadrant abdominal pain possible cholelithiasis and cholecystitis. 2. Possible choledocholithiasis and hyperbilirubinemia, improving. 3. Increased AST/ALT with normal alkaline phosphatase. 4. Increased random blood sugar. 5. Atrial fibrillation history. 6. Dementia. 7. Diabetes mellitus type 2. 8. Hypertension. 9. Hypothyroidism. 10.FULL CODE. RECOMMENDATIONS AND DISCUSSION: Recommend to continue current medication, continue with monitoring. Symptomatic treatment. Otherwise at this time I recommend continue with current medications. I would also closely follow with surgery. Dr. Gerber is planning surgery tomorrow. Prognosis guarded. Further recommendations to follow. MMODL / IJN: [id number] /
[2018-07-29] MEDS: diphenhydrAMINE 25 MG CAP PO PRN (19:36)
[2018-07-29] MEDS: QUEtiapine 25 MG TAB PO SCH (20:17)
[2018-07-29 21:00] LABS: Glucose,Whole Blood 126 mg/dL (75-99)
[2018-07-29] MEDS ORDERED: HYDROmorphone 0.5 MG/0.5 ML SYRINGE IVP PRN (21:16)
[2018-07-29] MEDS ORDERED: DEXAMETHASONE SOD PHOSPHATE 10 MG/ML 1 ML VIAL IV ONE (21:16)
[2018-07-29] MEDS ORDERED: MORPHINE SULFATE 2 MG/ML SYRINGE IV PRN (21:16)
[2018-07-29] MEDS ORDERED: ONDANSETRON 4 MG/2 ML VIAL IVP ONE (21:16)
--- NOTE | 2018-07-30 00:57 | P.PN ---
Subjective Progress Note Date: 07/29/18 Principal diagnosis: Abdominal pain, cholelithiasis, elevated liver enzymes Patient reporting that abdominal pain has resolved. Normal bowel movement this morning. Objective - Vital Signs Vital signs: Vital Signs Temp 98.0 F 07/29/18 22:23 Pulse 75 07/29/18 22:23 Resp 18 07/29/18 22:23 BP 115/76 07/29/18 22:23 Pulse Ox 100 07/29/18 22:23 Intake & Output 07/29/18 07/29/18 07/30/18 06:59 18:59 06:59 Other: Voiding Method Toilet Incontinent # Voids 2 4 # Bowel Movements 1 - Exam On physical examination, patient appears comfortable in no apparent distress. HEAD: Normocephalic, atraumatic. EYES: No scleral icterus. No conjunctival injection. MOUTH: No lesions, tongue midline. NECK: Trachea midline, no gross abnormalities. CHEST: Clear to auscultation with no wheezing or rhonchi appreciated. HEART: Regular rate and rhythm. ABDOMEN: Soft, obese. Bowel sounds are positive. No organomegaly. No guarding or rigidity. EXTREMITIES: No pedal edema. SKIN: No rashes, no jaundice. NEUROLOGIC: Alert and oriented x3. No focal deficits. - Labs CBC & Chem 7: 07/29/18 09:20 07/29/18 09:20 Labs: Abnormal Lab Results - Last 24 Hours (Table) 07/29/18 07/29/18 07/29/18 Range/Units 07:08 09:20 09:20 Eosinophils # 1.0 H (0-0.7) k/uL Chloride 109 H (98-107) mmol/L Glucose 205 H (74-99) mg/dL POC Glucose (mg/dL) 169 H (75-99) mg/dL Total Bilirubin 3.4 H (0.2-1.3) mg/dL AST 95 H (14-36) U/L ALT 115 H (9-52) U/L Alkaline Phosphatase 133 H (38-126) U/L Albumin 3.0 L (3.5-5.0) g/dL 07/29/18 07/29/18 07/29/18 Range/Units 11:50 16:52 20:16 Eosinophils # (0-0.7) k/uL Chloride (98-107) mmol/L Glucose (74-99) mg/dL POC Glucose (mg/dL) 178 H 281 H 126 H (75-99) mg/dL Total Bilirubin (0.2-1.3) mg/dL AST (14-36) U/L ALT (9-52) U/L Alkaline Phosphatase (38-126) U/L Albumin (3.5-5.0) g/dL Assessment and Plan (1) Elevated liver enzymes Narrative/Plan: Elevated liver enzymes and predominantly cholestatic pattern. Unknown etiology. Viral hepatitis panel pending, and plan to fractionate bilirubin. Ultrasound significant for cholelithiasis without biliary dilation. Patient scheduled for cholecystectomy. Current Visit: Yes Status: Acute Code(s): R74.8 - ABNORMAL LEVELS OF OTHER SERUM ENZYMES SNOMED Code(s): 229064945 (2) Cholelithiasis Current Visit: Yes Status: Acute Code(s): K80.20 - CALCULUS OF GALLBLADDER W /O CHOLECYSTITIS W/O OBSTRUCTION SNOMED Code(s): 768973747 Plan: Supportive care Appreciate surgical recommendations Monitor liver enzymes Plans fractionate bilirubin in the morning Acute viral hepatitis panel pending Surgical service plans for cholecystectomy in the morning No plan for ERCP at this time, will consider further workup if liver enzymes do not normalize Thank you for allowing us to participate in the care of this patient
[2018-07-30] MEDS: LEVOTHYROXINE 25 MCG TAB PO SCH (06:31)
[2018-07-30 07:22] LABS: Glucose,Whole Blood 175 mg/dL (75-99)
[2018-07-30] MEDS: METOPROLOL TARTRATE 25 MG TAB PO SCH ×2 (07:40→20:44)
[2018-07-30] MEDS: LISINOPRIL 5 MG TAB PO SCH (07:40)
[2018-07-30] MEDS: PANTOPRAZOLE 40 MG/10 ML VIAL IV SCH (07:40)
[2018-07-30] MEDS: INSULIN ASPART 100 UNIT/ML 1 ML 10 ML VIAL SQ SCH ×4 (09:00→21:30)
[2018-07-30] MEDS ORDERED: IV FLUID CONTINUATION 900 ML IV ONE (09:50)
[2018-07-30 09:54] LABS: Basophils # (A) 0.1 k/uL (0-0.2); Basophils % (A) 1 %; Eosinophils # (A) 1.3 k/uL (0-0.7); Eosinophils % (A) 15 %; HCT 38.8 % (34.0-46.0); HGB 12.7 gm/dL (11.4-16.0); Lymphocytes # (A) 1.7 k/uL (1.0-4.8); Lymphocytes % (A) 20 %; MCH 29.6 pg (25.0-35.0); MCHC 32.7 g/dL (31.0-37.0); MCV 90.5 fL (80.0-100.0); Mean Platelet Volume 8.1; Monocytes # (A) 0.5 k/uL (0-1.0); Monocytes % (A) 6 %; Neutrophils # (A) 4.5 k/uL (1.3-7.7); Neutrophils % (A) 55 %; Platelet Count 190 k/uL (150-450); RBC 4.29 m/uL (3.80-5.40); RDW 13.2 % (11.5-15.5); WBC 8.2 k/uL (3.8-10.6)
[2018-07-30 10:11] LABS: Potassium 4.6 mmol/L (3.5-5.1); Total Bilirubin 2.4 mg/dL (0.2-1.3); Total Protein 6.4 g/dL (6.3-8.2)
[2018-07-30 10:11] LABS: Glucose,Whole Blood 147 mg/dL (75-99)
[2018-07-30] MEDS ORDERED: ceFAZolin IN SWFI 2 GM/20 ML SYRINGE IVP STA (10:17)
[2018-07-30] MEDS ORDERED: HEPARIN SODIUM,PORCINE 5,000 UNIT/ML 1 ML VIAL SQ ONE (10:18)
[2018-07-30] MEDS ORDERED: LIDOCAINE 1% INJ 10MG/ML (20 ML MDV) ONE (10:46)
[2018-07-30] MEDS ORDERED: PROPOFOL 10 MG/ML 20 ML VIAL IV ONE (10:46)
[2018-07-30] MEDS ORDERED: GLYCOPYRROLATE 0.2 MG/ML 2 ML VIAL ONE (10:46)
[2018-07-30] MEDS ORDERED: fentaNYL (PF) 50 MCG/ML 2 ML AMP ONE (10:46)
[2018-07-30] MEDS ORDERED: BUPIVACAIN-EPI 0.25%-1:200,000 30 ML VIAL SQ ONE (10:46)
[2018-07-30] MEDS ORDERED: NEOSTIGMINE 1 MG/ML 10 ML VIAL ONE (10:46)
[2018-07-30] MEDS ORDERED: ROCURONIUM BROMIDE 10 MG/ML 10 ML VIAL IV ONE (10:46)
[2018-07-30 10:49] LABS: Albumin 3.1 g/dL (3.5-5.0); Bilirubin,Unconjugated 0.8 mg/dL (0.0-1.1); Total Bilirubin 2.3 mg/dL (0.2-1.3); Total Protein 6.4 g/dL (6.3-8.2)
[2018-07-30 10:50] LABS: Bilirubin, Delta 1.5 mg/dL (0.0-0.2)
--- NOTE | 2018-07-30 11:47 | P.OP ---
Date of Procedure: 07/30/18 Preoperative Diagnosis: Cholelithiasis Choledocholithiasis Postoperative Diagnosis: Cholelithiasis Choledocholithiasis Procedure(s) Performed: Laparoscopic cholecystectomy Anesthesia: MAC Surgeon: Maxim Gerber Estimated Blood Loss (ml): 5 Pathology: other (Gallbladder) Condition: stable Disposition: PACU Description of Procedure: The patient was placed on the operating table. The patient received a general endotracheal tube anesthesia. The patients abdomen was prepped and draped in the usual sterile fashion. Through an infraumbilical stab incision, the fascia of the anterior abdominal wall was grasped with a pair of Kochers and then the Veress needle was placed in the peritoneal cavity. Position of the Veress needle was confirmed with positive drop test. The abdomen was then insufflated. After adequate insufflation, the 10 mm trocar was placed in the peritoneal cavity. Following this the laparoscope was placed in the peritoneal cavity. The patient was placed in the head-up, right side up position and then a 5 mm trocar was placed in the right lateral and right subcostal position under direct visualization. A 8 mm trocar was placed in the epigastric position. The gallbladder was grasped in the fundus and infundibulum. Traction on the gallbladder was placed in the lateral and the cephalad positions. The triangle of Calot was visualized.. The cystic duct was bluntly dissected until the union of the cystic duct and common bile duct was seen. The cystic duct was then divided and sealed with the Harmonic scissors. A PDS Endoloop was then placed throughout the cystic duct stump. The cystic artery divided and sealed with the Harmonic scissors. The gallbladder was then removed from the liver bed using Harmonic scissors. The gallbladder was then extracted through the epigastric port site. Operative field was checked for any bleeding spots and Harmonic scissors was used to coagulate the liver bed. The abdomen was irrigated. The trocars were removed. The skin was closed using interrupted 3-0 Vicryl suture. Dermabond dressing were applied. The patient tolerated the procedure well.
[2018-07-30] MEDS: SODIUM CHLORIDE 0.9% 1,000 ML IV SCH ×2 (12:17→20:51)
[2018-07-30 12:54] LABS: Glucose,Whole Blood 228 mg/dL (75-99)
[2018-07-30] MEDS: LACTATED RINGERS 1,000 ML IV SCH ×2 (13:01→20:52)
[2018-07-30] MEDS: CYANOCOBALAMIN 500 MCG TAB PO SCH (13:17)
[2018-07-30] MEDS: busPIRone HCl 5 MG TAB PO SCH ×2 (13:17→20:44)
[2018-07-30] MEDS: DOCUSATE 100 MG CAP PO SCH (13:17)
[2018-07-30] MEDS: MEMANTINE 10 MG TAB PO SCH (13:17)
[2018-07-30] MEDS: ASPIRIN 81 MG PO SCH (13:18)
[2018-07-30] MEDS: POLYETHYLENE GLYCOL 3350 17 GM POWD.PACK PO SCH (13:18)
[2018-07-30] MEDS: OXYBUTYNIN 10 MG TAB.ER.24 PO SCH (13:42)
[2018-07-30 16:50] LABS: Hepatitis A Antibody IgM Non-Reactive (Non-Reactive); Hepatitis B Core IgM Non-Reactive (Non-Reactive)
[2018-07-30 17:09] LABS: Glucose,Whole Blood 303 mg/dL (75-99)
[2018-07-30 20:24] LABS: Glucose,Whole Blood 416 mg/dL (75-99)
[2018-07-30] MEDS: QUEtiapine 25 MG TAB PO SCH (20:44)
[2018-07-30] MEDS: diphenhydrAMINE 25 MG CAP PO PRN (20:44)
[2018-07-31] MEDS: LEVOTHYROXINE 25 MCG TAB PO SCH (06:09)
[2018-07-31 06:48] LABS: Glucose,Whole Blood 255 mg/dL (75-99)
[2018-07-31] MEDS: MEMANTINE 10 MG TAB PO SCH (07:56)
[2018-07-31] MEDS: LISINOPRIL 5 MG TAB PO SCH (07:56)
[2018-07-31] MEDS: OXYBUTYNIN 10 MG TAB.ER.24 PO SCH (07:56)
[2018-07-31] MEDS: DOCUSATE 100 MG CAP PO SCH (07:56)
[2018-07-31] MEDS: METOPROLOL TARTRATE 25 MG TAB PO SCH ×2 (07:56→20:05)
[2018-07-31] MEDS: PANTOPRAZOLE 40 MG TABLET PO SCH (07:56)
[2018-07-31] MEDS: POLYETHYLENE GLYCOL 3350 17 GM POWD.PACK PO SCH (07:56)
[2018-07-31] MEDS: busPIRone HCl 5 MG TAB PO SCH ×2 (07:56→20:04)
[2018-07-31] MEDS: ASPIRIN 81 MG PO SCH (07:56)
[2018-07-31] MEDS: INSULIN ASPART 100 UNIT/ML 1 ML 10 ML VIAL SQ SCH ×4 (07:57→22:15)
[2018-07-31 08:33] LABS: Basophils # (A) 0.1 k/uL (0-0.2); Basophils % (A) 0 %; Eosinophils # (A) 0.1 k/uL (0-0.7); Eosinophils % (A) 1 %; HGB 11.6 gm/dL (11.4-16.0); Lymphocytes # (A) 2.1 k/uL (1.0-4.8); Lymphocytes % (A) 13 %; MCH 30.1 pg (25.0-35.0); MCV 91.1 fL (80.0-100.0); Mean Platelet Volume 8.2; Monocytes # (A) 1.1 k/uL (0-1.0); Monocytes % (A) 7 %; Neutrophils # (A) 12.3 k/uL (1.3-7.7); Neutrophils % (A) 77 %; Platelet Count 188 k/uL (150-450); RBC 3.85 m/uL (3.80-5.40); RDW 13.5 % (11.5-15.5)
[2018-07-31 08:52] LABS: Total Bilirubin 2.8 mg/dL (0.2-1.3); Total Protein 6.3 g/dL (6.3-8.2)
--- NOTE | 2018-07-31 12:09 | P.PN ---
Subjective Progress Note Date: 07/31/18 Principal diagnosis: elevated liver enzymes abdominal pain s/p lap nguyne. Feels well. TB increase to 2.8. transaminases improving. Afebrile. Mild incision tenderness. White count 16. Objective - Vital Signs Vital signs: Vital Signs Temp 98.9 F 07/31/18 06:40 Pulse 93 07/31/18 06:40 Resp 20 07/31/18 08:00 BP 127/61 07/31/18 06:40 Pulse Ox 97 07/31/18 06:40 Intake & Output 07/30/18 07/31/18 07/31/18 18:59 06:59 18:59 Intake Total 300 Output Total 5 Balance 295 Intake: IV 300 Output: Estimated Blood Loss 5 Other: Voiding Method Toilet Toilet Toilet Diaper # Voids 2 3 - Constitutional General appearance: Present: average body habitus, no acute distress - EENT Eyes: Present: normal appearance Ears: bilateral: normal - Neck Neck: Present: normal ROM - Respiratory Respiratory: bilateral: CTA - Cardiovascular Rhythm: regular Heart sounds: normal: S1, S2 - Gastrointestinal Gastrointestinal Comment(s): mild incision tenderness General gastrointestinal: Present: soft - Integumentary Integumentary: Present: normal turgor - Psychiatric Psychiatric: Present: A&O x's 3, appropriate affect - Labs CBC & Chem 7: 08/01/18 08:39 08/01/18 08:39 Labs: Abnormal Lab Results - Last 24 Hours (Table) 07/30/18 07/30/18 07/30/18 Range/Units 12:52 17:04 20:23 WBC (3.8-10.6) k/uL Neutrophils # (1.3-7.7) k/uL Monocytes # (0-1.0) k/uL Glucose (74-99) mg/dL POC Glucose (mg/dL) 228 H 303 H 416 H (75-99) mg/dL Total Bilirubin (0.2-1.3) mg/dL AST (14-36) U/L ALT (9-52) U/L Albumin (3.5-5.0) g/dL 07/31/18 07/31/18 07/31/18 Range/Units 06:42 07:39 07:39 WBC 16.0 H (3.8-10.6) k/uL Neutrophils # 12.3 H (1.3-7.7) k/uL Monocytes # 1.1 H (0-1.0) k/uL Glucose 230 H (74-99) mg/dL POC Glucose (mg/dL) 255 H (75-99) mg/dL Total Bilirubin 2.8 H (0.2-1.3) mg/dL AST 53 H (14-36) U/L ALT 74 H (9-52) U/L Albumin 3.0 L (3.5-5.0) g/dL Assessment and Plan (1) Elevated liver enzymes Narrative/Plan: History of cholelithiasis status post lap nguyen with postoperative hyperbilirubinemia mild transaminitis underlying retained CBD stone cannot be entirely excluded. Current Visit: Yes Status: Acute Code(s): R74.8 - ABNORMAL LEVELS OF OTHER SERUM ENZYMES SNOMED Code(s): 453655582 (2) S/P laparoscopic cholecystectomy Current Visit: Yes Status: Acute Code(s): Z90.49 - ACQUIRED ABSENCE OF OTHER SPECIFIED PARTS OF DIGESTIVE TRACT SNOMED Code(s): 129790905 (3) Cholelithiasis Current Visit: Yes Status: Acute Code(s): K80.20 - CALCULUS OF GALLBLADDER W /O CHOLECYSTITIS W/O OBSTRUCTION SNOMED Code(s): 862640587 (4) Leukocytosis Current Visit: Yes Status: Acute Code(s): D72.829 - ELEVATED WHITE BLOOD CELL COUNT, UNSPECIFIED SNOMED Code(s): 273058348 Plan: 1. Recommend another day of observation secondary to increased bilirubin, repeat CBC CMP in am if improved may be DC if not ERCP will be discussed. Assessment and plan of care discussed with Dr. Granado.
[2018-07-31 12:19] LABS: Glucose,Whole Blood 278 mg/dL (75-99)
[2018-07-31] MEDS: SODIUM CHLORIDE 0.9% 1,000 ML IV SCH (12:19)
[2018-07-31] MEDS: CYANOCOBALAMIN 500 MCG TAB PO SCH (13:09)
--- NOTE | 2018-07-31 17:04 | P.PN ---
Progress Note - Text Progress Note Date: 07/31/18 The patient feels better. Her jaundice has improved. On exam her vital signs are stable. Her abdomen soft. Incision sites are clean dry and intact. Status post laparoscopic ostectomy for cholelithiasis. Patient's input well. She will be discharged home in a.m.
[2018-07-31 17:10] LABS: Glucose,Whole Blood 236 mg/dL (75-99)
[2018-07-31] MEDS: QUEtiapine 25 MG TAB PO SCH (20:05)
[2018-07-31 20:38] LABS: Glucose,Whole Blood 254 mg/dL (75-99)
[2018-07-31] MEDS: LACTATED RINGERS 1,000 ML IV SCH (22:55)
[2018-08-01] MEDS: SODIUM CHLORIDE 0.9% 1,000 ML IV SCH ×2 (01:21→12:34)
[2018-08-01] MEDS: LEVOTHYROXINE 25 MCG TAB PO SCH (05:49)
[2018-08-01 07:36] LABS: Glucose,Whole Blood 190 mg/dL (75-99)
[2018-08-01] MEDS: busPIRone HCl 5 MG TAB PO SCH ×2 (08:01→19:49)
[2018-08-01] MEDS: ASPIRIN 81 MG PO SCH (08:01)
[2018-08-01] MEDS: PANTOPRAZOLE 40 MG TABLET PO SCH (08:01)
[2018-08-01] MEDS: POLYETHYLENE GLYCOL 3350 17 GM POWD.PACK PO SCH (08:01)
[2018-08-01] MEDS: MEMANTINE 10 MG TAB PO SCH (08:01)
[2018-08-01] MEDS: METOPROLOL TARTRATE 25 MG TAB PO SCH ×2 (08:01→19:49)
[2018-08-01] MEDS: CYANOCOBALAMIN 500 MCG TAB PO SCH (08:01)
[2018-08-01] MEDS: DOCUSATE 100 MG CAP PO SCH ×2 (08:01→19:48)
[2018-08-01] MEDS: LISINOPRIL 5 MG TAB PO SCH (08:01)
[2018-08-01] MEDS: INSULIN ASPART 100 UNIT/ML 1 ML 10 ML VIAL SQ SCH ×4 (08:02→20:55)
[2018-08-01] MEDS: OXYBUTYNIN 10 MG TAB.ER.24 PO SCH (08:46)
[2018-08-01 09:21] LABS: Basophils # (A) 0.1 k/uL (0-0.2); Basophils % (A) 1 %; Eosinophils # (A) 0.4 k/uL (0-0.7); Eosinophils % (A) 3 %; HCT 35.3 % (34.0-46.0); HGB 11.8 gm/dL (11.4-16.0); Lymphocytes # (A) 1.7 k/uL (1.0-4.8); Lymphocytes % (A) 12 %; MCH 30.2 pg (25.0-35.0); MCHC 33.5 g/dL (31.0-37.0); MCV 90.2 fL (80.0-100.0); Mean Platelet Volume 8.3; Monocytes # (A) 1.1 k/uL (0-1.0); Monocytes % (A) 8 %; Neutrophils # (A) 10.8 k/uL (1.3-7.7); Neutrophils % (A) 75 %; Platelet Count 187 k/uL (150-450); RBC 3.91 m/uL (3.80-5.40); RDW 13.2 % (11.5-15.5); WBC 14.5 k/uL (3.8-10.6)
[2018-08-01 09:49] LABS: ALT 66 U/L (9-52); AST 41 U/L (14-36); Alkaline Phosphatase 111 U/L (38-126); Anion Gap 10 mmol/L; Blood Urea Nitrogen 12 mg/dL (7-17); Calcium 8.4 mg/dL (8.4-10.2); Carbon Dioxide 23 mmol/L (22-30); Chloride 100 mmol/L (98-107); Glucose 254 mg/dL (74-99); Potassium 4.1 mmol/L (3.5-5.1); Sodium 133 mmol/L (137-145); Total Bilirubin 2.6 mg/dL (0.2-1.3); Total Protein 6.3 g/dL (6.3-8.2)
--- NOTE | 2018-08-01 10:45 | P.PN ---
Subjective Progress Note Date: 08/01/18 Principal diagnosis: elevated liver enzymes abdominal pain s/p lap nguyen postop day #2. Feels well. TB still elevated 2.6. Transaminases minimally improved AST 41. ALT 66. AP 111. White count slightly improved today 14.5. Afebrile. Mild incision tenderness. Objective - Vital Signs Vital signs: Vital Signs Temp 97.8 F 08/01/18 07:00 Pulse 81 08/01/18 07:00 Resp 16 08/01/18 07:00 BP 114/60 08/01/18 07:00 Pulse Ox 100 08/01/18 07:00 Intake & Output 07/31/18 08/01/18 08/01/18 18:59 06:59 18:59 Other: Voiding Method Toilet Toilet # Voids 3 3 # Bowel Movements 0 - Exam General appearance: The patient is alert, oriented, in no acute distress. HET: Head is normocephalic and atraumatic. Pupils are equal and reactive. Sclerae slightly icteric. Oropharynx is clear without lesions. Neck: Supple without lymphadenopathy. Trachea midline. Heart: S1 S2. Regular rate and rhythm. Lungs: No crackles or wheezes are heard. Abdomen: Soft, mild incisional tenderness, nondistended with bowel sounds. No peritoneal signs. No palpable organomegaly or masses. Extremities: Normal skin color and turgor. No cyanosis, rash, ulceration, clubbing, or edema. Radial and pedal pulses are 2/4 bilaterally. Neurological: No focal deficits. Strength and sensation are grossly intact. - Labs CBC & Chem 7: 08/01/18 08:39 08/01/18 08:39 Labs: Abnormal Lab Results - Last 24 Hours (Table) 07/31/18 07/31/18 07/31/18 Range/Units 12:15 17:06 20:36 WBC (3.8-10.6) k/uL Neutrophils # (1.3-7.7) k/uL Monocytes # (0-1.0) k/uL Sodium (137-145) mmol/L Glucose (74-99) mg/dL POC Glucose (mg/dL) 278 H 236 H 254 H (75-99) mg/dL Total Bilirubin (0.2-1.3) mg/dL AST (14-36) U/L ALT (9-52) U/L Albumin (3.5-5.0) g/dL 08/01/18 08/01/18 08/01/18 Range/Units 07:27 08:39 08:39 WBC 14.5 H (3.8-10.6) k/uL Neutrophils # 10.8 H (1.3-7.7) k/uL Monocytes # 1.1 H (0-1.0) k/uL Sodium 133 L (137-145) mmol/L Glucose 254 H (74-99) mg/dL POC Glucose (mg/dL) 190 H (75-99) mg/dL Total Bilirubin 2.6 H (0.2-1.3) mg/dL AST 41 H (14-36) U/L ALT 66 H (9-52) U/L Albumin 3.0 L (3.5-5.0) g/dL Assessment and Plan (1) Elevated liver enzymes Narrative/Plan: History of cholelithiasis status post lap nguyen with postoperative hyperbilirubinemia mild transaminitis underlying retained CBD stone cannot be entirely excluded. Current Visit: Yes Status: Acute Code(s): R74.8 - ABNORMAL LEVELS OF OTHER SERUM ENZYMES SNOMED Code(s): 317978086 (2) S/P laparoscopic cholecystectomy Current Visit: Yes Status: Acute Code(s): Z90.49 - ACQUIRED ABSENCE OF OTHER SPECIFIED PARTS OF DIGESTIVE TRACT SNOMED Code(s): 124996102 (3) Cholelithiasis Current Visit: Yes Status: Acute Code(s): K80.20 - CALCULUS OF GALLBLADDER W /O CHOLECYSTITIS W/O OBSTRUCTION SNOMED Code(s): 760845954 (4) Leukocytosis Current Visit: Yes Status: Acute Code(s): D72.829 - ELEVATED WHITE BLOOD CELL COUNT, UNSPECIFIED SNOMED Code(s): 412133185 Plan: 1. Ultrasound abdomen evaluate CBD. Recommend another day of observation secondary to increased bilirubin, repeat CBC CMP in am if improved may be DC if not ERCP will be discussed. Assessment and plan of care discussed with Dr. Granado.
[2018-08-01 12:24] LABS: Glucose,Whole Blood 233 mg/dL (75-99)
--- NOTE | 2018-08-01 12:34 | P.PN ---
Subjective Progress Note Date: 08/01/18 73-year-old female who underwent laparoscopic cholecystectomy on 07/30/2018. Bilirubin today 2.6, down from 2.8. AST 41. ALT 66. US of the abdomen has been ordered per GI service. Patient denies pain or discomfort. She is tolerating low fat diet. Denies nausea or vomiting. She states she has not had a bowel movement since surgery. PHYSICAL EXAM: GENERAL: This is a 73-year-old female in no apparent distress at the time of examination. Pleasant and cooperative. RESPIRATORY: Clear to auscultation. Equal expansion. CARDIOVASCULAR: Regular rate and rhythm. S1 and S2 noted. GASTROINTESTINAL: Soft and round. No distention noted. Bowel sounds present x 4 quadrants. INTEGUMENTARY: No cyanosis. No jaundice. No rashes noted. No cellulitis noted. EXTREMITIES: 2+ peripheral pulses. No evidence of peripheral edema. NEUROLOGIC: Cranial nerves II-XII grossly intact. PSYCHIATRIC: Awake, alert, and oriented X 3. Appropriate affect. Intact judgement and insight. ASSESSMENT: Cholelithiasis, status post laparoscopic cholecystectomy, POD #2 Transaminitis, improving Hyperbilirubinemia Leukocytosis, improving PLAN: US of abdomen ordered per GI service to evaluate for retained stone. Continue current diet. Continue colace and miralax. Await BM. Incentive spirometry. Activity as tolerated. Nurse practitioner note has been reviewed by physician. Signing provider agrees with the documented findings, assessment, and plan of care. Objective - Vital Signs Vital signs: Vital Signs Temp 97.8 F 08/01/18 07:00 Pulse 81 08/01/18 07:00 Resp 16 08/01/18 07:00 BP 114/60 08/01/18 07:00 Pulse Ox 100 08/01/18 07:00 Intake & Output 07/31/18 08/01/18 08/01/18 18:59 06:59 18:59 Other: Voiding Method Toilet Toilet # Voids 3 3 # Bowel Movements 0 - Labs CBC & Chem 7: 08/01/18 08:39 08/01/18 08:39 Labs: Abnormal Lab Results - Last 24 Hours (Table) 07/31/18 07/31/18 08/01/18 Range/Units 17:06 20:36 07:27 WBC (3.8-10.6) k/uL Neutrophils # (1.3-7.7) k/uL Monocytes # (0-1.0) k/uL Sodium (137-145) mmol/L Glucose (74-99) mg/dL POC Glucose (mg/dL) 236 H 254 H 190 H (75-99) mg/dL Total Bilirubin (0.2-1.3) mg/dL AST (14-36) U/L ALT (9-52) U/L Albumin (3.5-5.0) g/dL 08/01/18 08/01/18 Range/Units 08:39 08:39 WBC 14.5 H (3.8-10.6) k/uL Neutrophils # 10.8 H (1.3-7.7) k/uL Monocytes # 1.1 H (0-1.0) k/uL Sodium 133 L (137-145) mmol/L Glucose 254 H (74-99) mg/dL POC Glucose (mg/dL) (75-99) mg/dL Total Bilirubin 2.6 H (0.2-1.3) mg/dL AST 41 H (14-36) U/L ALT 66 H (9-52) U/L Albumin 3.0 L (3.5-5.0) g/dL
--- NOTE | 2018-08-01 15:02 | P.PN ---
Subjective Progress Note Date: 07/30/18 Principal diagnosis: Acute cholecystitis and cholelithiasis Status post laparoscopic cholecystectomy Patient is a 73 year old female admitted to hospital with right upper quadrant abdominal pain. Patient does have acute cholecystitis and cholelithiasis. Patient is currently status post laparoscopic cholecystectomy. 07/30/2018 Patient currently denied any complaints of chest pain or shortness of breath.. Abdominal soreness at the surgical incision site. No fever no chills. Does have some nausea. No vomiting. No diarrhea. No flatus or bowel movement yet. Hepatitis panel is negative. Current medications reviewed. Objective - Vital Signs Vital signs: Vital Signs Temp 98.6 F 07/30/18 15:00 Pulse 16 L 07/30/18 15:00 Resp 16 07/30/18 15:00 BP 169/83 07/30/18 15:00 Pulse Ox 97 07/30/18 15:00 Intake & Output 07/29/18 07/30/18 07/30/18 18:59 06:59 18:59 Intake Total 0 300 Output Total 5 Balance 0 295 Intake: IV 300 Oral 0 Output: Estimated Blood Loss 5 Other: Voiding Method Toilet Toilet Incontinent # Voids 4 1 2 # Bowel Movements 1 - Exam PHYSICAL EXAMINATION: Patient is lying in the bed comfortably, no acute distress, awake alert and oriented.. HEENT: Normocephalic. Neck is supple. Pupils reactive. Nostrils clear. Oral cavity is moist. Ears reveal no drainage. Neck reveals no JVD, carotid bruits, or thyromegaly. CHEST EXAMINATION: Trachea is central. Symmetrical expansion. Lung larson clear to auscultation and percussion. CARDIAC: Normal S1, S2 with no gallops. No murmurs ABDOMEN: Soft. Right upper quadrant mild tenderness. Surgical site intact. Bowel sounds diminished. No organomegaly. No abdominal bruits. Extremities: reveal no edema. No clubbing or cyanosis Neurologically awake, alert, oriented x3 with well-coordinated movements. No focal deficits noted Skin: No rash or skin lesions. Psychiatric: Coperative. Nonsuicidal Musculoskeletal: No joint swelling or deformity. Normal range of motion. - Labs CBC & Chem 7: 08/01/18 08:39 08/01/18 08:39 Labs: Abnormal Lab Results - Last 24 Hours (Table) 01/02/0707/29/18 07/30/18 Range/Units 16:52 20:16 07:21 Eosinophils # (0-0.7) k/uL Chloride (98-107) mmol/L Glucose (74-99) mg/dL POC Glucose (mg/dL) 281 H 126 H 175 H (75-99) mg/dL Total Bilirubin (0.2-1.3) mg/dL Delta Bilirubin (0.0-0.2) mg/dL AST (14-36) U/L ALT (9-52) U/L Alkaline Phosphatase (38-126) U/L Albumin (3.5-5.0) g/dL 07/30/18 07/30/18 07/30/18 Range/Units 08:33 08:33 08:33 Eosinophils # 1.3 H (0-0.7) k/uL Chloride 109 H (98-107) mmol/L Glucose 174 H (74-99) mg/dL POC Glucose (mg/dL) (75-99) mg/dL Total Bilirubin 2.4 H 2.3 H (0.2-1.3) mg/dL Delta Bilirubin 1.5 H (0.0-0.2) mg/dL AST 82 H 83 H (14-36) U/L ALT 99 H 104 H (9-52) U/L Alkaline Phosphatase 139 H 139 H (38-126) U/L Albumin 3.0 L 3.1 L (3.5-5.0) g/dL 07/30/18 07/30/18 Range/Units 10:04 12:52 Eosinophils # (0-0.7) k/uL Chloride (98-107) mmol/L Glucose (74-99) mg/dL POC Glucose (mg/dL) 147 H 228 H (75-99) mg/dL Total Bilirubin (0.2-1.3) mg/dL Delta Bilirubin (0.0-0.2) mg/dL AST (14-36) U/L ALT (9-52) U/L Alkaline Phosphatase (38-126) U/L Albumin (3.5-5.0) g/dL Assessment and Plan Assessment: Acute cholecystitis with cholelithiasis. Status post laparoscopic cholecystectomy. Possible choledocholithiasis and hyperbilirubinemia. Increases AST and ALT Hypertension Paroxysmal atrial fibrillation on aspirin Dementia Diabetes type 2 Hypothyroidism Patient is full code Plan: patient will be continued on IV fluids and pain medications. Clear liquid diet and advance as tolerated once the pain improves. General surgery and GI is following. Continue the current management and further recommendations based on the clinical course. Time with Patient: Greater than 30
--- NOTE | 2018-08-01 15:04 | P.PN ---
Subjective Progress Note Date: 07/31/18 Principal diagnosis: Acute cholecystitis and cholelithiasis Status post laparoscopic cholecystectomy Patient is a 73 year old female admitted to hospital with right upper quadrant abdominal pain. Patient does have acute cholecystitis and cholelithiasis. Patient is currently status post laparoscopic cholecystectomy. 07/30/2018 Patient currently denied any complaints of chest pain or shortness of breath.. Abdominal soreness at the surgical incision site. No fever no chills. Does have some nausea. No vomiting. No diarrhea. No flatus or bowel movement yet. Hepatitis panel is negative. 07/31/2018 Patient says that her abdominal pain is better. Tolerating clear liquids. Otherwise no bowel movement yet Bilirubin is slightly elevated from 1.3-2.8 today. No fever no chills. No nausea vomiting. No chest pain or shortness breath. Anticipate discharged tomorrow once the bilirubin is trending down. Liver enzymes are stable. Current medications reviewed. Objective - Vital Signs Vital signs: Vital Signs Temp 98.6 F 07/31/18 13:52 Pulse 72 07/31/18 13:52 Resp 18 07/31/18 16:00 BP 143/75 07/31/18 13:52 Pulse Ox 99 07/31/18 13:52 Intake & Output 07/31/18 07/31/18 08/01/18 06:59 18:59 06:59 Other: Voiding Method Toilet Toilet Toilet Diaper # Voids 3 3 - Exam PHYSICAL EXAMINATION: Patient is lying in the bed comfortably, no acute distress, awake alert and oriented.. HEENT: Normocephalic. Neck is supple. Pupils reactive. Nostrils clear. Oral cavity is moist. Ears reveal no drainage. Neck reveals no JVD, carotid bruits, or thyromegaly. CHEST EXAMINATION: Trachea is central. Symmetrical expansion. Lung larson clear to auscultation and percussion. CARDIAC: Normal S1, S2 with no gallops. No murmurs ABDOMEN: Soft. Right upper quadrant mild tenderness. Surgical site intact. Bowel sounds diminished. No organomegaly. No abdominal bruits. Extremities: reveal no edema. No clubbing or cyanosis Neurologically awake, alert, oriented x3 with well-coordinated movements. No focal deficits noted Skin: No rash or skin lesions. Psychiatric: Coperative. Nonsuicidal Musculoskeletal: No joint swelling or deformity. Normal range of motion. - Labs CBC & Chem 7: 08/01/18 08:39 08/01/18 08:39 Labs: Abnormal Lab Results - Last 24 Hours (Table) 07/31/18 07/31/18 07/31/18 Range/Units 06:42 07:39 07:39 WBC 16.0 H (3.8-10.6) k/uL Neutrophils # 12.3 H (1.3-7.7) k/uL Monocytes # 1.1 H (0-1.0) k/uL Glucose 230 H (74-99) mg/dL POC Glucose (mg/dL) 255 H (75-99) mg/dL Total Bilirubin 2.8 H (0.2-1.3) mg/dL AST 53 H (14-36) U/L ALT 74 H (9-52) U/L Albumin 3.0 L (3.5-5.0) g/dL 07/31/18 07/31/18 07/31/18 Range/Units 12:15 17:06 20:36 WBC (3.8-10.6) k/uL Neutrophils # (1.3-7.7) k/uL Monocytes # (0-1.0) k/uL Glucose (74-99) mg/dL POC Glucose (mg/dL) 278 H 236 H 254 H (75-99) mg/dL Total Bilirubin (0.2-1.3) mg/dL AST (14-36) U/L ALT (9-52) U/L Albumin (3.5-5.0) g/dL Assessment and Plan Assessment: Acute cholecystitis with cholelithiasis. Status post laparoscopic cholecystectomy. Possible choledocholithiasis and hyperbilirubinemia. Increases AST and ALT Hypertension Paroxysmal atrial fibrillation on aspirin Dementia Diabetes type 2 Hypothyroidism Patient is full code Plan: patient will be continued on IV fluids and pain medications. Clear liquid diet and advance as tolerated once the pain improves. General surgery and GI is following. Continue the current management and further recommendations based on the clinical course. Time with Patient: Greater than 30
[2018-08-01 16:33] VITALS: BMI 23.8
--- NOTE | 2018-08-01 17:08 | US ---
EXAMINATION TYPE: US abdomen limited DATE OF EXAM: 08/01/2018 COMPARISON: US CLINICAL HISTORY: CBD evaluation r/o CBD stone elevated LFTs. Danielle 2 days ago, patient very tender, unable to tolerate probe pressure EXAM MEASUREMENTS: Liver Length: 12.9 cm Gallbladder Wall: Surgically absent cm CBD: not seen well, not distended cm Right Kidney: 10.7 x 4.6 x 5.2 cm Technically difficult study due to midline bowel gas and recent surgery. Pancreas: not visualized Liver: limited vis to intercostal window Gallbladder: Surgically absent CBD: not well visualized Right Kidney: No hydronephrosis or masses seen, lower pole partially obscured by bowel. IMPRESSION: No free fluid. No dilated ducts. Right kidney shows no hydronephrosis. No complicating pr ocess seen.
[2018-08-01 17:09] LABS: Glucose,Whole Blood 175 mg/dL (75-99)
[2018-08-01] MEDS: QUEtiapine 25 MG TAB PO SCH (19:49)
[2018-08-01 20:49] LABS: Glucose,Whole Blood 206 mg/dL (75-99)
[2018-08-01] MEDS: LACTATED RINGERS 1,000 ML IV SCH (21:58)
--- NOTE | 2018-08-01 23:53 | P.PN ---
Subjective Progress Note Date: 08/01/18 Principal diagnosis: Acute cholecystitis and cholelithiasis Status post laparoscopic cholecystectomy Patient is a 73 year old female admitted to hospital with right upper quadrant abdominal pain. Patient does have acute cholecystitis and cholelithiasis. Patient is currently status post laparoscopic cholecystectomy. 07/30/2018 Patient currently denied any complaints of chest pain or shortness of breath.. Abdominal soreness at the surgical incision site. No fever no chills. Does have some nausea. No vomiting. No diarrhea. No flatus or bowel movement yet. Hepatitis panel is negative. 07/31/2018 Patient says that her abdominal pain is better. Tolerating clear liquids. Otherwise no bowel movement yet Bilirubin is slightly elevated from 1.3-2.8 today. No fever no chills. No nausea vomiting. No chest pain or shortness breath. Anticipate discharged tomorrow once the bilirubin is trending down. Liver enzymes are stable. 08/01/2018 Patient denied any worsening abdominal pain. Otherwise bilirubin is slightly improved to 2.6 today. Due to marginally improved liver enzymes and still having hyperbilirubinemia, ultrasound of the abdomen was requested. Showed no free fluid. No dilated ducts. Patient is also complaining of constipation. No fever no chills. No nausea vomiting. No headache or dizziness or lightheadedness. General surgery and GI is following. Current medications reviewed. Active Medications Aspirin (Aspirin) 81 mg PO DAILY [facility] Last Admin: 08/01/18 08:01 Dose: 81 mg Buspirone HCl (Buspar) 7.5 mg PO BID [facility] Last Admin: 08/01/18 19:49 Dose: 7.5 mg Cyanocobalamin (Vitamin B-12) 1,000 mcg PO 1200 [facility] Last Admin: 08/01/18 08:01 Dose: 1,000 mcg Diphenhydramine HCl (Benadryl) 25 mg PO QID PRN PRN Reason: itching Last Admin: 07/30/18 20:44 Dose: 25 mg Docusate Sodium (Colace) 100 mg PO BID [facility] Last Admin: 08/01/18 19:48 Dose: 100 mg Hydromorphone HCl (Dilaudid) 1 mg IVP Q3HR PRN PRN Reason: Severe Pain Last Admin: 07/30/18 15:02 Dose: 1 mg Sodium Chloride (Saline 0.9%) 1,000 mls @ 75 mls/hr IV .[id number] [facility] Last Admin: 08/01/18 12:34 Dose: Not Given Lactated Ringer's (Lactated Ringers) 1,000 mls @ 20 mls/hr IV .Q24H [facility] Last Admin: 08/01/18 21:58 Dose: Not Given Insulin Aspart (Novolog) 0 unit SQ ACHS [facility]; Protocol Last Admin: 08/01/18 20:55 Dose: 3 unit Levothyroxine Sodium (Synthroid) 25 mcg PO 0630 [facility] Last Admin: 08/01/18 05:49 Dose: 25 mcg Lisinopril (Zestril) 5 mg PO DAILY [facility] Last Admin: 08/01/18 08:01 Dose: 5 mg Memantine (Namenda) 10 mg PO DAILY [facility] Last Admin: 08/01/18 08:01 Dose: 10 mg Metoprolol Tartrate (Lopressor) 25 mg PO BID [facility] Last Admin: 08/01/18 19:49 Dose: 25 mg Naloxone HCl (Narcan) 0.2 mg IV Q2M PRN PRN Reason: Opioid Reversal Ondansetron HCl (Zofran) 4 mg IVP Q8HR PRN PRN Reason: Nausea And Vomiting Oxybutynin Chloride (Ditropan Xl) 10 mg PO DAILY [facility] Last Admin: 08/01/18 08:46 Dose: 10 mg Pantoprazole Sodium (Protonix) 40 mg PO AC-BRKFST [facility] Last Admin: 08/01/18 08:01 Dose: 40 mg Polyethylene Glycol (Miralax) 17 gm PO DAILY [facility] Last Admin: 08/01/18 08:01 Dose: 17 gm Quetiapine Fumarate (Seroquel) 25 mg PO HS [facility] Last Admin: 08/01/18 19:49 Dose: 25 mg Zinc Acetate/Diphenhydramine (Benadryl Cream) 1 applic TOPICAL QID PRN PRN Reason: Itching Last Admin: 07/28/18 20:30 Dose: 1 applic Objective - Vital Signs Vital signs: Vital Signs Temp 97.8 F 08/01/18 07:00 Pulse 81 08/01/18 07:00 Resp 16 08/01/18 07:00 BP 114/60 08/01/18 07:00 Pulse Ox 100 08/01/18 07:00 Intake & Output 07/31/18 08/01/18 08/01/18 18:59 06:59 18:59 Other: Voiding Method Toilet Toilet # Voids 3 3 3 # Bowel Movements 0 - Exam PHYSICAL EXAMINATION: Patient is lying in the bed comfortably, no acute distress, awake alert and oriented.. HEENT: Normocephalic. Neck is supple. Pupils reactive. Nostrils clear. Oral cavity is moist. Ears reveal no drainage. Neck reveals no JVD, carotid bruits, or thyromegaly. CHEST EXAMINATION: Trachea is central. Symmetrical expansion. Lung larson clear to auscultation and percussion. CARDIAC: Normal S1, S2 with no gallops. No murmurs ABDOMEN: Soft. Right upper quadrant mild tenderness. Surgical site intact. Bowel sounds diminished. No organomegaly. No abdominal bruits. Extremities: reveal no edema. No clubbing or cyanosis Neurologically awake, alert, oriented x3 with well-coordinated movements. No focal deficits noted Skin: No rash or skin lesions. Psychiatric: Coperative. Nonsuicidal Musculoskeletal: No joint swelling or deformity. Normal range of motion. - Labs CBC & Chem 7: 08/01/18 08:39 08/01/18 08:39 Labs: Abnormal Lab Results - Last 24 Hours (Table) 07/31/18 07/31/18 08/01/18 Range/Units 17:06 20:36 07:27 WBC (3.8-10.6) k/uL Neutrophils # (1.3-7.7) k/uL Monocytes # (0-1.0) k/uL Sodium (137-145) mmol/L Glucose (74-99) mg/dL POC Glucose (mg/dL) 236 H 254 H 190 H (75-99) mg/dL Total Bilirubin (0.2-1.3) mg/dL AST (14-36) U/L ALT (9-52) U/L Albumin (3.5-5.0) g/dL 08/01/18 08/01/18 08/01/18 Range/Units 08:39 08:39 12:21 WBC 14.5 H (3.8-10.6) k/uL Neutrophils # 10.8 H (1.3-7.7) k/uL Monocytes # 1.1 H (0-1.0) k/uL Sodium 133 L (137-145) mmol/L Glucose 254 H (74-99) mg/dL POC Glucose (mg/dL) 233 H (75-99) mg/dL Total Bilirubin 2.6 H (0.2-1.3) mg/dL AST 41 H (14-36) U/L ALT 66 H (9-52) U/L Albumin 3.0 L (3.5-5.0) g/dL Assessment and Plan Assessment: Acute cholecystitis with cholelithiasis. Status post laparoscopic cholecystectomy. Possible choledocholithiasis and hyperbilirubinemia. Repeat Ultrasound abdomen is negative for dilated ducts. Increases AST and ALT. Improving slowly. Hypertension Paroxysmal atrial fibrillation on aspirin Dementia Diabetes type 2 Hypothyroidism Patient is full code Plan: patient will be continued on IV fluids and pain medications. Clear liquid diet and advance as tolerated once the pain improves. General surgery and GI is following. Continue the current management and further recommendations based on the clinical course. Time with Patient: Greater than 30
[2018-08-02] MEDS: SODIUM CHLORIDE 0.9% 1,000 ML IV SCH ×2 (03:36→16:55)
[2018-08-02] MEDS: LEVOTHYROXINE 25 MCG TAB PO SCH (05:19)
[2018-08-02 07:13] LABS: Glucose,Whole Blood 162 mg/dL (75-99)
[2018-08-02] MEDS: INSULIN ASPART 100 UNIT/ML 1 ML 10 ML VIAL SQ SCH ×4 (07:41→21:19)
[2018-08-02] MEDS: busPIRone HCl 5 MG TAB PO SCH ×2 (07:42→21:19)
[2018-08-02] MEDS: PANTOPRAZOLE 40 MG TABLET PO SCH (07:42)
[2018-08-02] MEDS: LISINOPRIL 5 MG TAB PO SCH (07:42)
[2018-08-02] MEDS: CYANOCOBALAMIN 500 MCG TAB PO SCH (07:42)
[2018-08-02] MEDS: METOPROLOL TARTRATE 25 MG TAB PO SCH ×2 (07:42→21:17)
[2018-08-02] MEDS: ASPIRIN 81 MG PO SCH (07:42)
[2018-08-02] MEDS: MEMANTINE 10 MG TAB PO SCH (07:42)
[2018-08-02] MEDS: POLYETHYLENE GLYCOL 3350 17 GM POWD.PACK PO SCH (07:42)
[2018-08-02] MEDS: DOCUSATE 100 MG CAP PO SCH ×2 (07:42→21:17)
[2018-08-02] MEDS: OXYBUTYNIN 10 MG TAB.ER.24 PO SCH (07:43)
[2018-08-02 08:20] LABS: Basophils # (A) 0.1 k/uL (0-0.2); Basophils % (A) 1 %; Eosinophils # (A) 0.8 k/uL (0-0.7); Eosinophils % (A) 5 %; HCT 36.2 % (34.0-46.0); HGB 12.2 gm/dL (11.4-16.0); Lymphocytes # (A) 1.9 k/uL (1.0-4.8); Lymphocytes % (A) 13 %; MCH 30.5 pg (25.0-35.0); MCHC 33.9 g/dL (31.0-37.0); MCV 90.1 fL (80.0-100.0); Mean Platelet Volume 7.7; Monocytes # (A) 1.1 k/uL (0-1.0); Monocytes % (A) 8 %; Neutrophils # (A) 10.1 k/uL (1.3-7.7); Neutrophils % (A) 71 %; Platelet Count 206 k/uL (150-450); RBC 4.01 m/uL (3.80-5.40); RDW 13.3 % (11.5-15.5); WBC 14.3 k/uL (3.8-10.6)
[2018-08-02 08:22] LABS: Albumin 3.1 g/dL (3.5-5.0); Potassium 4.5 mmol/L (3.5-5.1); Total Bilirubin 2.2 mg/dL (0.2-1.3); Total Protein 6.5 g/dL (6.3-8.2)
--- NOTE | 2018-08-02 11:38 | P.PN ---
Subjective Progress Note Date: 08/02/18 Principal diagnosis: elevated liver enzymes abdominal pain s/p lap nguyen postop day #3. Feels well. TB improved 2.2. Transaminases AST 44. ALT 55. AP normal. White count 14.3. Afebrile. Mild incision tenderness. Tolerating diet. Objective - Vital Signs Vital signs: Vital Signs Temp 99.0 F 08/02/18 07:00 Pulse 79 08/02/18 07:00 Resp 16 08/02/18 07:00 BP 110/64 08/02/18 07:00 Pulse Ox 96 08/02/18 07:00 Intake & Output 08/01/18 08/02/18 08/02/18 18:59 06:59 18:59 Weight 65 kg Other: Voiding Method Toilet # Voids 3 2 - Exam General appearance: The patient is alert, oriented, in no acute distress. HET: Head is normocephalic and atraumatic. Pupils are equal and reactive. Sclerae slightly icteric. Oropharynx is clear without lesions. Neck: Supple without lymphadenopathy. Trachea midline. Heart: S1 S2. Regular rate and rhythm. Lungs: No crackles or wheezes are heard. Abdomen: Soft, mild incisional tenderness, nondistended with bowel sounds. No peritoneal signs. No palpable organomegaly or masses. Extremities: Normal skin color and turgor. No cyanosis, rash, ulceration, clubbing, or edema. Radial and pedal pulses are 2/4 bilaterally. Neurological: No focal deficits. Strength and sensation are grossly intact. - Labs CBC & Chem 7: 08/02/18 07:31 08/02/18 07:31 Labs: Abnormal Lab Results - Last 24 Hours (Table) 08/01/18 08/01/18 08/01/18 Range/Units 12:21 17:04 20:47 WBC (3.8-10.6) k/uL Neutrophils # (1.3-7.7) k/uL Monocytes # (0-1.0) k/uL Eosinophils # (0-0.7) k/uL Glucose (74-99) mg/dL POC Glucose (mg/dL) 233 H 175 H 206 H (75-99) mg/dL Total Bilirubin (0.2-1.3) mg/dL AST (14-36) U/L ALT (9-52) U/L Albumin (3.5-5.0) g/dL 08/02/18 08/02/18 08/02/18 Range/Units 07:06 07:31 07:31 WBC 14.3 H (3.8-10.6) k/uL Neutrophils # 10.1 H (1.3-7.7) k/uL Monocytes # 1.1 H (0-1.0) k/uL Eosinophils # 0.8 H (0-0.7) k/uL Glucose 173 H (74-99) mg/dL POC Glucose (mg/dL) 162 H (75-99) mg/dL Total Bilirubin 2.2 H (0.2-1.3) mg/dL AST 44 H (14-36) U/L ALT 55 H (9-52) U/L Albumin 3.1 L (3.5-5.0) g/dL Assessment and Plan (1) Elevated liver enzymes Narrative/Plan: History of cholelithiasis status post lap nguyen with postoperative hyperbilirubinemia mild transaminitis leukocytosis slow clinical improvement underlying retained CBD stone cannot be entirely excluded. Current Visit: Yes Status: Acute Code(s): R74.8 - ABNORMAL LEVELS OF OTHER SERUM ENZYMES SNOMED Code(s): 748725678 (2) S/P laparoscopic cholecystectomy Current Visit: Yes Status: Acute Code(s): Z90.49 - ACQUIRED ABSENCE OF OTHER SPECIFIED PARTS OF DIGESTIVE TRACT SNOMED Code(s): 540828622 (3) Cholelithiasis Current Visit: Yes Status: Acute Code(s): K80.20 - CALCULUS OF GALLBLADDER W /O CHOLECYSTITIS W/O OBSTRUCTION SNOMED Code(s): 164972369 (4) Leukocytosis Narrative/Plan: Slowly improving Current Visit: Yes Status: Acute Code(s): D72.829 - ELEVATED WHITE BLOOD CELL COUNT, UNSPECIFIED SNOMED Code(s): 848393761 Plan: 1. Ultrasound report morning liver chemistries reviewed by Dr. Granado. Dr. Granado recommends ERCP before discharge will schedule tomorrow am. CBC CMP in am. Assessment and plan of care discussed with Dr. Granado.
[2018-08-02] MEDS ORDERED: BISACODYL 10 MG SUPP RECTAL STA (11:39)
[2018-08-02 11:52] LABS: Glucose,Whole Blood 241 mg/dL (75-99)
[2018-08-02 12:38] LABS: Prothrombin Time 10.6 sec (9.0-12.0)
--- NOTE | 2018-08-02 15:25 | P.PN ---
Progress Note - Text Progress Note Date: 08/02/18 The patient feels better. Her liver function tests have improved. There is some discussion that she may undergo ERCP with the GI service today. On exam her vital signs are stable. Abdomen soft. The patient most likely has passed a gallstone after her laparoscopic cholecystectomy. She is stable for discharge. She'll follow-up in one week.
--- NOTE | 2018-08-02 15:31 | P.PN ---
Subjective Progress Note Date: 08/02/18 73-year-old female who underwent laparoscopic cholecystectomy on 07/30/2018. Bilirubin 2.2 today. AST 44. ALT 55. Patient denies pain or discomfort. She is tolerating oral intake. Reports she has not had a bowel movement since surgery. She is on colace and miralax. She reports passing flatus. Denies nausea or vomiting. PHYSICAL EXAM: GENERAL: This is a 73-year-old female in no apparent distress at the time of examination. Pleasant and cooperative. RESPIRATORY: Clear to auscultation. Equal expansion. CARDIOVASCULAR: Regular rate and rhythm. S1 and S2 noted. GASTROINTESTINAL: Soft and round. No distention noted. Bowel sounds present x 4 quadrants. INTEGUMENTARY: No cyanosis. No jaundice. No rashes noted. No cellulitis noted. EXTREMITIES: 2+ peripheral pulses. No evidence of peripheral edema. NEUROLOGIC: Cranial nerves II-XII grossly intact. PSYCHIATRIC: Awake, alert, and oriented X 3. Appropriate affect. Intact judgement and insight. ASSESSMENT: Cholelithiasis, status post laparoscopic cholecystectomy, POD #3 Transaminitis, improving Hyperbilirubinemia Leukocytosis, improving PLAN: Continue current diet. Continue colace and miralax. Dulcolax suppository x 1. Await BM. Incentive spirometry. Activity as tolerated. Patient to undergo ERCP tomorrow per GI. Likely will be able to be discharged home tomorrow afternoon. Nurse practitioner note has been reviewed by physician. Signing provider agrees with the documented findings, assessment, and plan of care. Objective - Vital Signs Vital signs: Vital Signs Temp 98.4 F 08/02/18 15:00 Pulse 74 08/02/18 15:00 Resp 16 08/02/18 15:00 BP 107/58 08/02/18 15:00 Pulse Ox 98 08/02/18 15:00 Intake & Output 08/01/18 08/02/18 08/02/18 18:59 06:59 18:59 Weight 65 kg Other: Voiding Method Toilet # Voids 3 2 2 # Bowel Movements 1 - Labs CBC & Chem 7: 08/02/18 07:31 08/02/18 07:31 Labs: Abnormal Lab Results - Last 24 Hours (Table) 08/01/18 08/01/18 08/02/18 Range/Units 17:04 20:47 07:06 WBC (3.8-10.6) k/uL Neutrophils # (1.3-7.7) k/uL Monocytes # (0-1.0) k/uL Eosinophils # (0-0.7) k/uL Glucose (74-99) mg/dL POC Glucose (mg/dL) 175 H 206 H 162 H (75-99) mg/dL Total Bilirubin (0.2-1.3) mg/dL AST (14-36) U/L ALT (9-52) U/L Albumin (3.5-5.0) g/dL 08/02/18 08/02/18 08/02/18 Range/Units 07:31 07:31 11:48 WBC 14.3 H (3.8-10.6) k/uL Neutrophils # 10.1 H (1.3-7.7) k/uL Monocytes # 1.1 H (0-1.0) k/uL Eosinophils # 0.8 H (0-0.7) k/uL Glucose 173 H (74-99) mg/dL POC Glucose (mg/dL) 241 H (75-99) mg/dL Total Bilirubin 2.2 H (0.2-1.3) mg/dL AST 44 H (14-36) U/L ALT 55 H (9-52) U/L Albumin 3.1 L (3.5-5.0) g/dL
[2018-08-02 17:00] LABS: Glucose,Whole Blood 253 mg/dL (75-99)
[2018-08-02 20:32] LABS: Glucose,Whole Blood 308 mg/dL (75-99)
[2018-08-02] MEDS: QUEtiapine 25 MG TAB PO SCH (21:17)
[2018-08-02] MEDS: LACTATED RINGERS 1,000 ML IV SCH (21:23)
--- NOTE | 2018-08-02 22:00 | P.PN ---
Subjective Progress Note Date: 08/02/18 Principal diagnosis: Acute cholecystitis and cholelithiasis Status post laparoscopic cholecystectomy Patient is a 73 year old female admitted to hospital with right upper quadrant abdominal pain. Patient does have acute cholecystitis and cholelithiasis. Patient is currently status post laparoscopic cholecystectomy. 07/30/2018 Patient currently denied any complaints of chest pain or shortness of breath.. Abdominal soreness at the surgical incision site. No fever no chills. Does have some nausea. No vomiting. No diarrhea. No flatus or bowel movement yet. Hepatitis panel is negative. 07/31/2018 Patient says that her abdominal pain is better. Tolerating clear liquids. Otherwise no bowel movement yet Bilirubin is slightly elevated from 1.3-2.8 today. No fever no chills. No nausea vomiting. No chest pain or shortness breath. Anticipate discharged tomorrow once the bilirubin is trending down. Liver enzymes are stable. 08/01/2018 Patient denied any worsening abdominal pain. Otherwise bilirubin is slightly improved to 2.6 today. Due to marginally improved liver enzymes and still having hyperbilirubinemia, ultrasound of the abdomen was requested. Showed no free fluid. No dilated ducts. Patient is also complaining of constipation. No fever no chills. No nausea vomiting. No headache or dizziness or lightheadedness. 08/02/2018 Patient denied any abdominal pain. No nausea vomiting. Tolerating oral diet. Otherwise patient is still having hyperbilirubinemia improving very slowly 2.2 today. GI is planning for ERCP tomorrow. Patient did have a small bowel movement today. No fever no chills. No headache or dizziness or lightheadedness. No chest pain or shortness breath. General surgery and GI is following. Current medications reviewed. Active Medications Aspirin (Aspirin) 81 mg PO DAILY [facility] Last Admin: 08/01/18 08:01 Dose: 81 mg Buspirone HCl (Buspar) 7.5 mg PO BID [facility] Last Admin: 08/01/18 19:49 Dose: 7.5 mg Cyanocobalamin (Vitamin B-12) 1,000 mcg PO 1200 [facility] Last Admin: 08/01/18 08:01 Dose: 1,000 mcg Diphenhydramine HCl (Benadryl) 25 mg PO QID PRN PRN Reason: itching Last Admin: 07/30/18 20:44 Dose: 25 mg Docusate Sodium (Colace) 100 mg PO BID [facility] Last Admin: 08/01/18 19:48 Dose: 100 mg Hydromorphone HCl (Dilaudid) 1 mg IVP Q3HR PRN PRN Reason: Severe Pain Last Admin: 07/30/18 15:02 Dose: 1 mg Sodium Chloride (Saline 0.9%) 1,000 mls @ 75 mls/hr IV .[id number] [facility] Last Admin: 08/01/18 12:34 Dose: Not Given Lactated Ringer's (Lactated Ringers) 1,000 mls @ 20 mls/hr IV .Q24H [facility] Last Admin: 08/01/18 21:58 Dose: Not Given Insulin Aspart (Novolog) 0 unit SQ ACHS [facility]; Protocol Last Admin: 08/01/18 20:55 Dose: 3 unit Levothyroxine Sodium (Synthroid) 25 mcg PO 0630 [facility] Last Admin: 08/01/18 05:49 Dose: 25 mcg Lisinopril (Zestril) 5 mg PO DAILY [facility] Last Admin: 08/01/18 08:01 Dose: 5 mg Memantine (Namenda) 10 mg PO DAILY [facility] Last Admin: 08/01/18 08:01 Dose: 10 mg Metoprolol Tartrate (Lopressor) 25 mg PO BID [facility] Last Admin: 08/01/18 19:49 Dose: 25 mg Naloxone HCl (Narcan) 0.2 mg IV Q2M PRN PRN Reason: Opioid Reversal Ondansetron HCl (Zofran) 4 mg IVP Q8HR PRN PRN Reason: Nausea And Vomiting Oxybutynin Chloride (Ditropan Xl) 10 mg PO DAILY [facility] Last Admin: 08/01/18 08:46 Dose: 10 mg Pantoprazole Sodium (Protonix) 40 mg PO AC-BRKFST [facility] Last Admin: 08/01/18 08:01 Dose: 40 mg Polyethylene Glycol (Miralax) 17 gm PO DAILY [facility] Last Admin: 08/01/18 08:01 Dose: 17 gm Quetiapine Fumarate (Seroquel) 25 mg PO HS [facility] Last Admin: 08/01/18 19:49 Dose: 25 mg Zinc Acetate/Diphenhydramine (Benadryl Cream) 1 applic TOPICAL QID PRN PRN Reason: Itching Last Admin: 07/28/18 20:30 Dose: 1 applic Objective - Vital Signs Vital signs: Vital Signs Temp 98.4 F 08/02/18 15:00 Pulse 74 08/02/18 15:00 Resp 16 08/02/18 15:00 BP 107/58 08/02/18 15:00 Pulse Ox 98 08/02/18 15:00 Intake & Output 08/02/18 08/02/18 08/03/18 06:59 18:59 06:59 Other: Voiding Method Toilet # Voids 2 2 # Bowel Movements 1 - Exam PHYSICAL EXAMINATION: Patient is lying in the bed comfortably, no acute distress, awake alert and oriented.. HEENT: Normocephalic. Neck is supple. Pupils reactive. Nostrils clear. Oral cavity is moist. Ears reveal no drainage. Neck reveals no JVD, carotid bruits, or thyromegaly. CHEST EXAMINATION: Trachea is central. Symmetrical expansion. Lung larson clear to auscultation and percussion. CARDIAC: Normal S1, S2 with no gallops. No murmurs ABDOMEN: Soft. Right upper quadrant mild tenderness. Surgical site intact. Bowel sounds diminished. No organomegaly. No abdominal bruits. Extremities: reveal no edema. No clubbing or cyanosis Neurologically awake, alert, oriented x3 with well-coordinated movements. No focal deficits noted Skin: No rash or skin lesions. Psychiatric: Coperative. Nonsuicidal Musculoskeletal: No joint swelling or deformity. Normal range of motion. - Labs CBC & Chem 7: 08/02/18 07:31 08/02/18 07:31 Labs: Abnormal Lab Results - Last 24 Hours (Table) 08/01/18 08/02/18 08/02/18 Range/Units 20:47 07:06 07:31 WBC 14.3 H (3.8-10.6) k/uL Neutrophils # 10.1 H (1.3-7.7) k/uL Monocytes # 1.1 H (0-1.0) k/uL Eosinophils # 0.8 H (0-0.7) k/uL Glucose (74-99) mg/dL POC Glucose (mg/dL) 206 H 162 H (75-99) mg/dL Total Bilirubin (0.2-1.3) mg/dL AST (14-36) U/L ALT (9-52) U/L Albumin (3.5-5.0) g/dL 08/02/18 08/02/18 08/02/18 Range/Units 07:31 11:48 16:58 WBC (3.8-10.6) k/uL Neutrophils # (1.3-7.7) k/uL Monocytes # (0-1.0) k/uL Eosinophils # (0-0.7) k/uL Glucose 173 H (74-99) mg/dL POC Glucose (mg/dL) 241 H 253 H (75-99) mg/dL Total Bilirubin 2.2 H (0.2-1.3) mg/dL AST 44 H (14-36) U/L ALT 55 H (9-52) U/L Albumin 3.1 L (3.5-5.0) g/dL Assessment and Plan Assessment: Acute cholecystitis with cholelithiasis. Status post laparoscopic cholecystectomy. Possible choledocholithiasis and hyperbilirubinemia. Repeat Ultrasound abdomen is negative for dilated ducts. Increases AST and ALT. Improving slowly. Next and constipation Hypertension Paroxysmal atrial fibrillation on aspirin Dementia Diabetes type 2 Hypothyroidism Patient is full code Plan: patient will be continued on IV fluids and pain medications. Clear liquid diet and advance as tolerated once the pain improves. General surgery and GI is following. Continue the current management and further recommendations based on the clinical course. Time with Patient: Greater than 30
[2018-08-03] MEDS: SODIUM CHLORIDE 0.9% 1,000 ML IV SCH ×2 (05:13→15:27)
[2018-08-03 07:34] LABS: Glucose,Whole Blood 246 mg/dL (75-99)
[2018-08-03] MEDS: DOCUSATE 100 MG CAP PO SCH ×2 (08:07→20:04)
[2018-08-03] MEDS: ASPIRIN 81 MG PO SCH (08:07)
[2018-08-03] MEDS: POLYETHYLENE GLYCOL 3350 17 GM POWD.PACK PO SCH (08:07)
[2018-08-03] MEDS: PANTOPRAZOLE 40 MG TABLET PO SCH (08:07)
[2018-08-03] MEDS: MEMANTINE 10 MG TAB PO SCH (08:07)
[2018-08-03] MEDS: LEVOTHYROXINE 25 MCG TAB PO SCH (08:07)
[2018-08-03] MEDS: INSULIN ASPART 100 UNIT/ML 1 ML 10 ML VIAL SQ SCH ×4 (08:08→20:27)
[2018-08-03] MEDS ORDERED: LEVOFLOXACIN 500MG-D5W PMX 500 MG in DEXTROSE/WATER 1 100ML.BAG IVPB ONE (08:30)
[2018-08-03] MEDS ORDERED: INDOMETHACIN 50MG SUPPOSITORY RECTAL ONE (08:30)
[2018-08-03] MEDS ORDERED: ePHEDrine SULFATE/0.9% NACL/PF 50 MG/5 ML SYRINGE IV ONE (09:05)
[2018-08-03] MEDS ORDERED: LIDOCAINE 1% INJ 10MG/ML (20 ML MDV) ONE (09:05)
[2018-08-03] MEDS ORDERED: fentaNYL (PF) 50 MCG/ML 2 ML AMP ONE (09:05)
[2018-08-03] MEDS ORDERED: PROPOFOL 10 MG/ML 20 ML VIAL IV ONE (09:05)
[2018-08-03] MEDS ORDERED: ROCURONIUM BROMIDE 10 MG/ML 10 ML VIAL IV ONE (09:05)
[2018-08-03] MEDS ORDERED: MIDAZOLAM 2 MG/2 ML VIAL ONE (09:05)
[2018-08-03] MEDS ORDERED: IV FLUID CONTINUATION 1,000 ML IV ONE (09:20)
[2018-08-03] MEDS ORDERED: IOHEXOL 180 MG/ML 1 ML ML MISCELLANE ONE (10:25)
--- NOTE | 2018-08-03 10:53 | P.PCN ---
Date of Procedure: 08/03/18 Description of Procedure: Brief history: The patient is a pleasant 73-year-old female who presented to the hospital with complaints of abdominal pain. The patient was found to have cholelithiasis on ultrasound imaging and elevated liver enzymes on presentation. The patient was started on IV antibiotics and taken for a laparoscopic cholecystectomy which was successful. However the patient's bilirubin continued to remain elevated after her procedure. The decision was made to take the patient for ERCP for treatment of choledocholithiasis. Procedure performed: ERCP with sphincterotomy and balloon sweep of the common bile duct Preoperative diagnoses: Choledocholithiasis, elevated bilirubin IV sedation per anesthesia: Gen. anesthesia Estimated blood loss: Minimal. Procedure: After informed consent was obtained from the patient and after the risks benefits and complications including bleeding perforation and pancreatitis explained in detail the patient was brought into the endoscopy unit. The patient was placed in prone position and IV conscious sedation was administered by anesthesia under continuous monitoring. The Olympus side-viewing duodenoscope was then inserted into the mouth and esophagus intubated without any difficulty. The scope was gradually advanced into the stomach and duodenum. The major papilla was identified without any difficulty. The common bile duct was cannulated using a sphincterotome. A wire was then passed into the common bile duct. A 10 mm sphincterotomy was then performed. The sphincterotome was then removed over the wire and a balloon was passed into the bile duct. The balloon was inflated to 8.5 mm and multiple sweeps of the common bile duct were performed with bile duct stones and sludge noted. The pancreatic duct was not cannulated or injected. The patient tolerated the procedure well. Impression: 1. ERCP with sphincterotomy and balloon sweep of the common bile duct. 2. Choledocholithiasis, with successful removal of the bile duct stones with sphincterotomy and balloon sweep. Recommendations: The findings of this examination were discussed with the patient. Okay for full liquid diet, advance as tolerated. Monitor for signs and symptoms of pancreatitis. Monitor liver enzymes. If patient remains stable she is okay for discharge from gastroenterology.
[2018-08-03] MEDS: CYANOCOBALAMIN 500 MCG TAB PO SCH (11:04)
--- NOTE | 2018-08-03 11:10 | FL ---
FLUOROSCOPY 101 seconds of fluoroscopy time were utilized during ERCP. 3 images document the procedure.
[2018-08-03] MEDS: OXYBUTYNIN 10 MG TAB.ER.24 PO SCH (11:24)
[2018-08-03] MEDS: METOPROLOL TARTRATE 25 MG TAB PO SCH ×2 (11:24→20:04)
[2018-08-03] MEDS: LISINOPRIL 5 MG TAB PO SCH (11:24)
[2018-08-03] MEDS: busPIRone HCl 5 MG TAB PO SCH ×2 (11:24→20:04)
[2018-08-03 11:38] LABS: Glucose,Whole Blood 199 mg/dL (75-99)
--- NOTE | 2018-08-03 13:33 | P.PN ---
Subjective Progress Note Date: 08/03/18 CHIEF COMPLAINT: Bile duct stone HISTORY OF PRESENT ILLNESS: The patient is a 73-year-old female initially status post cholecystectomy on 07/30/2018. She has history of retained common bile duct stone. She is now status post ERCP with clearance of stone from common bile duct from this morning. No new moderate right upper quadrant abdominal pain. She is tolerating clear liquid diet. PHYSICAL EXAM: VITAL SIGNS: Reviewed GENERAL: Well-developed in no acute distress. HEENT: Sclera icterus present. Extraocular movements grossly intact. Moist buccal mucosa. Head is atraumatic, normocephalic. Hears conversational speech. No nasal drainage. NECK: Supple without lymphadenopathy. CHEST: Non-labored respirations and equal bilateral excursions. CARDIOVASCULAR: Palpable 2+ radial pulses. ABDOMEN: Soft. Nondistended. No peritonitis. MUSCULOSKELETAL: No clubbing, cyanosis NEUROLOGIC: No focal or lateralizing signs. Cranial nerves II through XII grossly intact. PSYCH: Appropriate affect. Alert and oriented to person, place and time. SKIN: Well perfused. Good skin turgor. ASSESSMENT: 1. Common bile duct stone with obstruction 2. Status post cholecystectomy PLAN: 1. Diet as tolerated per GI 2. No additional surgical intervention needed Objective - Vital Signs Vital signs: Vital Signs Temp 98.0 F 08/03/18 10:38 Pulse 88 08/03/18 11:08 Resp 16 08/03/18 11:08 BP 157/74 08/03/18 11:08 Pulse Ox 99 08/03/18 11:08 Intake & Output 08/02/18 08/03/18 08/03/18 18:59 06:59 18:59 Intake Total 300 700 Balance 300 700 Weight 65 kg Intake: IV 700 Oral 300 Other: Voiding Method Toilet Toilet # Voids 2 4 1 # Bowel Movements 1 - Labs CBC & Chem 7: 08/02/18 07:31 08/02/18 07:31 Labs: Abnormal Lab Results - Last 24 Hours (Table) 08/02/18 08/02/18 08/03/18 Range/Units 16:58 20:10 07:32 POC Glucose (mg/dL) 253 H 308 H 246 H (75-99) mg/dL 08/03/18 Range/Units 11:37 POC Glucose (mg/dL) 199 H (75-99) mg/dL - Imaging and Cardiology ERCP information reviewed in detail Assessment and Plan (1) Hypothyroidism Current Visit: Yes Status: Acute Code(s): E03.9 - HYPOTHYROIDISM, UNSPECIFIED SNOMED Code(s): 57984276 (2) Cholelithiasis Current Visit: Yes Status: Acute Code(s): K80.20 - CALCULUS OF GALLBLADDER W /O CHOLECYSTITIS W/O OBSTRUCTION SNOMED Code(s): 561001388 (3) Elevated liver enzymes Current Visit: Yes Status: Acute Code(s): R74.8 - ABNORMAL LEVELS OF OTHER SERUM ENZYMES SNOMED Code(s): 481371420 (4) Jaundice Current Visit: Yes Status: Acute Code(s): R17 - UNSPECIFIED JAUNDICE SNOMED Code(s): 41778137 (5) S/P laparoscopic cholecystectomy Current Visit: Yes Status: Acute Code(s): Z90.49 - ACQUIRED ABSENCE OF OTHER SPECIFIED PARTS OF DIGESTIVE TRACT SNOMED Code(s): 111142348 (6) Dementia Current Visit: No Status: Acute Code(s): F03.90 - UNSPECIFIED DEMENTIA WITHOUT BEHAVIORAL DISTURBANCE SNOMED Code(s): 19170986 (7) Hypertensive heart disease Current Visit: Yes Status: Acute Code(s): I11.9 - HYPERTENSIVE HEART DISEASE WITHOUT HEART FAILURE SNOMED Code(s): 17954090
[2018-08-03 17:17] LABS: Glucose,Whole Blood 232 mg/dL (75-99)
[2018-08-03] MEDS: LACTATED RINGERS 1,000 ML IV SCH (20:04)
[2018-08-03] MEDS: QUEtiapine 25 MG TAB PO SCH (20:04)
[2018-08-03 20:23] LABS: Glucose,Whole Blood 173 mg/dL (75-99)
--- NOTE | 2018-08-03 21:52 | P.PN ---
Subjective Progress Note Date: 08/03/18 Principal diagnosis: Acute cholecystitis and cholelithiasis Status post laparoscopic cholecystectomy Patient is a 73 year old female admitted to hospital with right upper quadrant abdominal pain. Patient does have acute cholecystitis and cholelithiasis. Patient is currently status post laparoscopic cholecystectomy. 07/30/2018 Patient currently denied any complaints of chest pain or shortness of breath.. Abdominal soreness at the surgical incision site. No fever no chills. Does have some nausea. No vomiting. No diarrhea. No flatus or bowel movement yet. Hepatitis panel is negative. 07/31/2018 Patient says that her abdominal pain is better. Tolerating clear liquids. Otherwise no bowel movement yet Bilirubin is slightly elevated from 1.3-2.8 today. No fever no chills. No nausea vomiting. No chest pain or shortness breath. Anticipate discharged tomorrow once the bilirubin is trending down. Liver enzymes are stable. 08/01/2018 Patient denied any worsening abdominal pain. Otherwise bilirubin is slightly improved to 2.6 today. Due to marginally improved liver enzymes and still having hyperbilirubinemia, ultrasound of the abdomen was requested. Showed no free fluid. No dilated ducts. Patient is also complaining of constipation. No fever no chills. No nausea vomiting. No headache or dizziness or lightheadedness. 08/02/2018 Patient denied any abdominal pain. No nausea vomiting. Tolerating oral diet. Otherwise patient is still having hyperbilirubinemia improving very slowly 2.2 today. GI is planning for ERCP tomorrow. Patient did have a small bowel movement today. No fever no chills. No headache or dizziness or lightheadedness. No chest pain or shortness breath. 08/03/2018 Patient had ERCP today,1. ERCP with sphincterotomy and balloon sweep of the common bile duct. 2. Choledocholithiasis, with successful removal of the bile duct stones with sphincterotomy and balloon sweep. Patient is complaining of right upper quadrant pain. Otherwise no nausea vomiting. Tolerating oral diet and advance as tolerated. No fever no chills. Follow-up CMP tomorrow. General surgery and GI is following. Current medications reviewed. Active Medications Aspirin (Aspirin) 81 mg PO DAILY [facility] Last Admin: 08/01/18 08:01 Dose: 81 mg Buspirone HCl (Buspar) 7.5 mg PO BID [facility] Last Admin: 08/01/18 19:49 Dose: 7.5 mg Cyanocobalamin (Vitamin B-12) 1,000 mcg PO 1200 [facility] Last Admin: 08/01/18 08:01 Dose: 1,000 mcg Diphenhydramine HCl (Benadryl) 25 mg PO QID PRN PRN Reason: itching Last Admin: 07/30/18 20:44 Dose: 25 mg Docusate Sodium (Colace) 100 mg PO BID [facility] Last Admin: 08/01/18 19:48 Dose: 100 mg Hydromorphone HCl (Dilaudid) 1 mg IVP Q3HR PRN PRN Reason: Severe Pain Last Admin: 07/30/18 15:02 Dose: 1 mg Sodium Chloride (Saline 0.9%) 1,000 mls @ 75 mls/hr IV .[id number] [facility] Last Admin: 08/01/18 12:34 Dose: Not Given Lactated Ringer's (Lactated Ringers) 1,000 mls @ 20 mls/hr IV .Q24H [facility] Last Admin: 08/01/18 21:58 Dose: Not Given Insulin Aspart (Novolog) 0 unit SQ [facility]; Protocol Last Admin: 08/01/18 20:55 Dose: 3 unit Levothyroxine Sodium (Synthroid) 25 mcg PO 0630 [facility] Last Admin: 08/01/18 05:49 Dose: 25 mcg Lisinopril (Zestril) 5 mg PO DAILY [facility] Last Admin: 08/01/18 08:01 Dose: 5 mg Memantine (Namenda) 10 mg PO DAILY [facility] Last Admin: 08/01/18 08:01 Dose: 10 mg Metoprolol Tartrate (Lopressor) 25 mg PO BID [facility] Last Admin: 08/01/18 19:49 Dose: 25 mg Naloxone HCl (Narcan) 0.2 mg IV Q2M PRN PRN Reason: Opioid Reversal Ondansetron HCl (Zofran) 4 mg IVP Q8HR PRN PRN Reason: Nausea And Vomiting Oxybutynin Chloride (Ditropan Xl) 10 mg PO DAILY [facility] Last Admin: 08/01/18 08:46 Dose: 10 mg Pantoprazole Sodium (Protonix) 40 mg PO AC-BRKFST [facility] Last Admin: 08/01/18 08:01 Dose: 40 mg Polyethylene Glycol (Miralax) 17 gm PO DAILY [facility] Last Admin: 08/01/18 08:01 Dose: 17 gm Quetiapine Fumarate (Seroquel) 25 mg PO HS [facility] Last Admin: 08/01/18 19:49 Dose: 25 mg Zinc Acetate/Diphenhydramine (Benadryl Cream) 1 applic TOPICAL QID PRN PRN Reason: Itching Last Admin: 07/28/18 20:30 Dose: 1 applic Objective - Vital Signs Vital signs: Vital Signs Temp 98.0 F 08/03/18 10:38 Pulse 88 08/03/18 11:08 Resp 16 08/03/18 11:08 BP 157/74 08/03/18 11:08 Pulse Ox 99 08/03/18 11:08 Intake & Output 08/02/18 08/03/18 08/03/18 18:59 06:59 18:59 Intake Total 300 700 Balance 300 700 Weight 65 kg Intake: IV 700 Oral 300 Other: Voiding Method Toilet Toilet # Voids 2 4 1 # Bowel Movements 1 - Exam PHYSICAL EXAMINATION: Patient is lying in the bed comfortably, no acute distress, awake alert and oriented.. HEENT: Normocephalic. Neck is supple. Pupils reactive. Nostrils clear. Oral cavity is moist. Ears reveal no drainage. Neck reveals no JVD, carotid bruits, or thyromegaly. CHEST EXAMINATION: Trachea is central. Symmetrical expansion. Lung larson clear to auscultation and percussion. CARDIAC: Normal S1, S2 with no gallops. No murmurs ABDOMEN: Soft. Right upper quadrant mild tenderness. Surgical site intact. Bowel sounds diminished. No organomegaly. No abdominal bruits. Extremities: reveal no edema. No clubbing or cyanosis Neurologically awake, alert, oriented x3 with well-coordinated movements. No focal deficits noted Skin: No rash or skin lesions. Psychiatric: Coperative. Nonsuicidal Musculoskeletal: No joint swelling or deformity. Normal range of motion. - Labs CBC & Chem 7: 08/02/18 07:31 08/02/18 07:31 Labs: Abnormal Lab Results - Last 24 Hours (Table) 08/02/18 08/02/18 08/03/18 Range/Units 16:58 20:10 07:32 POC Glucose (mg/dL) 253 H 308 H 246 H (75-99) mg/dL 08/03/18 Range/Units 11:37 POC Glucose (mg/dL) 199 H (75-99) mg/dL Assessment and Plan Assessment: Acute cholecystitis with cholelithiasis. Status post laparoscopic cholecystectomy. choledocholithiasis status post ERCP and stone removal and sphincterotomy.. Increases AST and ALT. Improving slowly. Next and constipation Hypertension Paroxysmal atrial fibrillation on aspirin Dementia Diabetes type 2 Hypothyroidism Patient is full code Plan: patient will be continued on IV fluids and pain medications. Clear liquid diet and advance as tolerated once the pain improves. General surgery and GI is following. Continue the current management and further recommendations based on the clinical course. Time with Patient: Greater than 30
[2018-08-04] MEDS: LEVOTHYROXINE 25 MCG TAB PO SCH (05:54)
[2018-08-04 07:39] LABS: Glucose,Whole Blood 187 mg/dL (75-99)
[2018-08-04] MEDS: busPIRone HCl 5 MG TAB PO SCH ×2 (07:42→21:13)
[2018-08-04] MEDS: CYANOCOBALAMIN 500 MCG TAB PO SCH (07:42)
[2018-08-04] MEDS: LISINOPRIL 5 MG TAB PO SCH (07:42)
[2018-08-04] MEDS: SODIUM CHLORIDE 0.9% 1,000 ML IV SCH ×2 (07:43→21:19)
[2018-08-04] MEDS: DOCUSATE 100 MG CAP PO SCH ×2 (07:43→21:14)
[2018-08-04] MEDS: PANTOPRAZOLE 40 MG TABLET PO SCH (07:43)
[2018-08-04] MEDS: METOPROLOL TARTRATE 25 MG TAB PO SCH ×2 (07:43→21:14)
[2018-08-04] MEDS: INSULIN ASPART 100 UNIT/ML 1 ML 10 ML VIAL SQ SCH ×4 (07:43→21:14)
[2018-08-04] MEDS: MEMANTINE 10 MG TAB PO SCH (07:43)
[2018-08-04] MEDS: ASPIRIN 81 MG PO SCH (07:43)
[2018-08-04] MEDS: POLYETHYLENE GLYCOL 3350 17 GM POWD.PACK PO SCH (07:43)
[2018-08-04] MEDS: OXYBUTYNIN 10 MG TAB.ER.24 PO SCH (07:45)
[2018-08-04 08:36] LABS: Basophils % (A) 1 %; Eosinophils # (A) 0.7 k/uL (0-0.7); Eosinophils % (A) 11 %; HCT 35.9 % (34.0-46.0); HGB 11.6 gm/dL (11.4-16.0); Lymphocytes % (A) 16 %; MCH 29.3 pg (25.0-35.0); MCHC 32.3 g/dL (31.0-37.0); MCV 90.7 fL (80.0-100.0); Mean Platelet Volume 6.9; Monocytes # (A) 0.6 k/uL (0-1.0); Monocytes % (A) 9 %; Neutrophils # (A) 3.8 k/uL (1.3-7.7); Neutrophils % (A) 60 %; Platelet Count 229 k/uL (150-450); RBC 3.96 m/uL (3.80-5.40); RDW 13.3 % (11.5-15.5); WBC 6.4 k/uL (3.8-10.6)
[2018-08-04 08:49] LABS: ALT 128 U/L (9-52); AST 260 U/L (14-36); Albumin 2.9 g/dL (3.5-5.0); Alkaline Phosphatase 271 U/L (38-126); Anion Gap 7 mmol/L; Blood Urea Nitrogen 10 mg/dL (7-17); Calcium 8.8 mg/dL (8.4-10.2); Carbon Dioxide 24 mmol/L (22-30); Chloride 105 mmol/L (98-107); Glucose 220 mg/dL (74-99); Potassium 4.2 mmol/L (3.5-5.1); Sodium 136 mmol/L (137-145); Total Bilirubin 4.7 mg/dL (0.2-1.3); Total Protein 6.3 g/dL (6.3-8.2)
[2018-08-04 12:03] LABS: Glucose,Whole Blood 158 mg/dL (75-99)
--- NOTE | 2018-08-04 12:46 | P.PN ---
Subjective Progress Note Date: 08/04/18 CHIEF COMPLAINT: Bile duct stone HISTORY OF PRESENT ILLNESS: The patient is a 73-year-old female initially status post cholecystectomy on 07/30/2018. She is postop day 5. She has history of retained common bile duct stone. She is now status post ERCP, 2018. "I feel so much better." No reports of nausea and vomiting. "I can't wait to eat." PHYSICAL EXAM: VITAL SIGNS: Reviewed GENERAL: Well-developed in no acute distress. HEENT: Sclera icterus present. Extraocular movements grossly intact. Moist buccal mucosa. Head is atraumatic, normocephalic. Hears conversational speech. No nasal drainage. NECK: Supple without lymphadenopathy. CHEST: Non-labored respirations and equal bilateral excursions. CARDIOVASCULAR: Palpable 2+ radial pulses. ABDOMEN: Soft. Nontender. Nondistended. MUSCULOSKELETAL: No clubbing, cyanosis NEUROLOGIC: No focal or lateralizing signs. Cranial nerves II through XII grossly intact. PSYCH: Appropriate affect. Alert and oriented to person, place and time. SKIN: Well perfused. Good skin turgor. LABS: Reviewed ASSESSMENT: 1. Common bile duct stone with obstruction 2. Status post cholecystectomy PLAN: 1. Her LFTs including bilirubin has moderately increased the last 24 hours. I have ordered amylase and lipase for evaluation of post-ERCP pancreatitis 2. Clinically at the time of my evaluation, she does feel well and may continue with diet in the interim. 3. No additional surgical intervention at this time. Objective - Vital Signs Vital signs: Vital Signs Temp 98.5 F 08/04/18 07:00 Pulse 86 08/04/18 07:00 Resp 18 08/04/18 07:00 BP 117/69 08/04/18 07:00 Pulse Ox 98 08/04/18 07:00 Intake & Output 08/03/18 08/04/18 08/04/18 18:59 06:59 18:59 Intake Total 700 400 Balance 700 400 Weight 65 kg Intake: IV 700 Oral 400 Other: Voiding Method Toilet Toilet Toilet # Voids 1 3 3 - Labs CBC & Chem 7: 08/04/18 08:12 08/04/18 08:12 Labs: Abnormal Lab Results - Last 24 Hours (Table) 08/03/18 08/03/18 08/04/18 Range/Units 17:15 20:17 07:18 Sodium (137-145) mmol/L Glucose (74-99) mg/dL POC Glucose (mg/dL) 232 H 173 H 187 H (75-99) mg/dL Total Bilirubin (0.2-1.3) mg/dL AST (14-36) U/L ALT (9-52) U/L Alkaline Phosphatase (38-126) U/L Albumin (3.5-5.0) g/dL 08/04/18 08/04/18 Range/Units 08:12 11:54 Sodium 136 L (137-145) mmol/L Glucose 220 H (74-99) mg/dL POC Glucose (mg/dL) 158 H (75-99) mg/dL Total Bilirubin 4.7 H (0.2-1.3) mg/dL AST 260 H (14-36) U/L ALT 128 H (9-52) U/L Alkaline Phosphatase 271 H (38-126) U/L Albumin 2.9 L (3.5-5.0) g/dL Assessment and Plan (1) Hypothyroidism Current Visit: Yes Status: Acute Code(s): E03.9 - HYPOTHYROIDISM, UNSPECIFIED SNOMED Code(s): 45442829 (2) Cholelithiasis Current Visit: Yes Status: Acute Code(s): K80.20 - CALCULUS OF GALLBLADDER W /O CHOLECYSTITIS W/O OBSTRUCTION SNOMED Code(s): 517315415 (3) Elevated liver enzymes Current Visit: Yes Status: Acute Code(s): R74.8 - ABNORMAL LEVELS OF OTHER SERUM ENZYMES SNOMED Code(s): 490936529 (4) Jaundice Current Visit: Yes Status: Acute Code(s): R17 - UNSPECIFIED JAUNDICE SNOMED Code(s): 02906137 (5) S/P laparoscopic cholecystectomy Current Visit: Yes Status: Acute Code(s): Z90.49 - ACQUIRED ABSENCE OF OTHER SPECIFIED PARTS OF DIGESTIVE TRACT SNOMED Code(s): 017824004 (6) Dementia Current Visit: No Status: Acute Code(s): F03.90 - UNSPECIFIED DEMENTIA WITHOUT BEHAVIORAL DISTURBANCE SNOMED Code(s): 63580321 (7) Hypertensive heart disease Current Visit: Yes Status: Acute Code(s): I11.9 - HYPERTENSIVE HEART DISEASE WITHOUT HEART FAILURE SNOMED Code(s): 68902304 (8) Choledocholithiasis with acute cholecystitis with obstruction Current Visit: Yes Status: Acute Code(s): K80.43 - CALCULUS OF BILE DUCT W ACUTE CHOLECYSTITIS WITH OBSTRUCTION SNOMED Code(s): 25150346
[2018-08-04 14:40] LABS: Amylase 43 U/L (30-110); Lipase 218 U/L (23-300)
[2018-08-04 17:26] LABS: Glucose,Whole Blood 150 mg/dL (75-99)
--- NOTE | 2018-08-04 19:51 | P.PN ---
Subjective Progress Note Date: 08/04/18 Principal diagnosis: Abdominal pain, cholelithiasis, elevated liver enzymes, choledocholithiasis Patient lying in bed, denying any abdominal pain. She has tolerated her diet. Objective - Vital Signs Vital signs: Vital Signs Temp 98.3 F 08/04/18 15:00 Pulse 68 08/04/18 15:00 Resp 20 08/04/18 15:00 BP 128/69 08/04/18 15:00 Pulse Ox 100 08/04/18 15:00 Intake & Output 08/04/18 08/04/18 08/05/18 06:59 18:59 06:59 Intake Total 400 320 Balance 400 320 Weight 65 kg Intake: Oral 400 320 Other: Voiding Method Toilet Toilet # Voids 3 3 - Exam On physical examination, patient appears comfortable in no apparent distress. HEAD: Normocephalic, atraumatic. EYES: Minimal scleral icterus. No conjunctival injection. MOUTH: No lesions, tongue midline. NECK: Trachea midline, no gross abnormalities. CHEST: Clear to auscultation with no wheezing or rhonchi appreciated. HEART: Regular rate and rhythm. ABDOMEN: Soft, obese. Bowel sounds are positive. No organomegaly. No guarding or rigidity. EXTREMITIES: No pedal edema. SKIN: No rashes, minimal jaundice. NEUROLOGIC: Alert and oriented. No focal deficits. - Labs CBC & Chem 7: 08/04/18 08:12 08/04/18 08:12 Labs: Abnormal Lab Results - Last 24 Hours (Table) 08/03/18 08/04/18 08/04/18 Range/Units 20:17 07:18 08:12 Sodium 136 L (137-145) mmol/L Glucose 220 H (74-99) mg/dL POC Glucose (mg/dL) 173 H 187 H (75-99) mg/dL Total Bilirubin 4.7 H (0.2-1.3) mg/dL AST 260 H (14-36) U/L ALT 128 H (9-52) U/L Alkaline Phosphatase 271 H (38-126) U/L Albumin 2.9 L (3.5-5.0) g/dL 08/04/18 08/04/18 Range/Units 11:54 17:04 Sodium (137-145) mmol/L Glucose (74-99) mg/dL POC Glucose (mg/dL) 158 H 150 H (75-99) mg/dL Total Bilirubin (0.2-1.3) mg/dL AST (14-36) U/L ALT (9-52) U/L Alkaline Phosphatase (38-126) U/L Albumin (3.5-5.0) g/dL Assessment and Plan (1) Elevated liver enzymes Narrative/Plan: Elevated liver enzymes and predominantly cholestatic pattern. Unknown etiology. The patient is status post successful cholecystectomy, and ERCP with sphincterotomy and balloon sweep with choledocholithiasis noted. Liver enzymes remain elevated today. Current Visit: Yes Status: Acute Code(s): R74.8 - ABNORMAL LEVELS OF OTHER SERUM ENZYMES SNOMED Code(s): 866928657 (2) Cholelithiasis Current Visit: Yes Status: Acute Code(s): K80.20 - CALCULUS OF GALLBLADDER W /O CHOLECYSTITIS W/O OBSTRUCTION SNOMED Code(s): 446518930 (3) Choledocholithiasis Narrative/Plan: Patient is status post successful ERCP with sphincterotomy and balloon sweep productive of bile duct stone. Current Visit: Yes Status: Acute Code(s): K80.50 - CALCULUS OF BILE DUCT W/ O CHOLANGITIS OR CHOLECYST W/O OBST SNOMED Code(s): 794358882 Plan: Supportive care Appreciate surgical recommendations Monitor liver enzymes Suspect that elevation in liver enzymes were secondary to ERCP yesterday, however will repeat liver enzymes, if they remain elevated will consider repeat intervention tomorrow Thank you for allowing us to participate in the care of this patient
[2018-08-04 20:41] LABS: Glucose,Whole Blood 111 mg/dL (75-99)
--- NOTE | 2018-08-04 20:45 | P.PN ---
Subjective Progress Note Date: 08/04/18 Principal diagnosis: Acute cholecystitis and cholelithiasis Status post laparoscopic cholecystectomy Patient is a 73 year old female admitted to hospital with right upper quadrant abdominal pain. Patient does have acute cholecystitis and cholelithiasis. Patient is currently status post laparoscopic cholecystectomy. 07/30/2018 Patient currently denied any complaints of chest pain or shortness of breath.. Abdominal soreness at the surgical incision site. No fever no chills. Does have some nausea. No vomiting. No diarrhea. No flatus or bowel movement yet. Hepatitis panel is negative. 07/31/2018 Patient says that her abdominal pain is better. Tolerating clear liquids. Otherwise no bowel movement yet Bilirubin is slightly elevated from 1.3-2.8 today. No fever no chills. No nausea vomiting. No chest pain or shortness breath. Anticipate discharged tomorrow once the bilirubin is trending down. Liver enzymes are stable. 08/01/2018 Patient denied any worsening abdominal pain. Otherwise bilirubin is slightly improved to 2.6 today. Due to marginally improved liver enzymes and still having hyperbilirubinemia, ultrasound of the abdomen was requested. Showed no free fluid. No dilated ducts. Patient is also complaining of constipation. No fever no chills. No nausea vomiting. No headache or dizziness or lightheadedness. 08/02/2018 Patient denied any abdominal pain. No nausea vomiting. Tolerating oral diet. Otherwise patient is still having hyperbilirubinemia improving very slowly 2.2 today. GI is planning for ERCP tomorrow. Patient did have a small bowel movement today. No fever no chills. No headache or dizziness or lightheadedness. No chest pain or shortness breath. 08/03/2018 Patient had ERCP today,1. ERCP with sphincterotomy and balloon sweep of the common bile duct. 2. Choledocholithiasis, with successful removal of the bile duct stones with sphincterotomy and balloon sweep. Patient is complaining of right upper quadrant pain. Otherwise no nausea vomiting. Tolerating oral diet and advance as tolerated. No fever no chills. Follow-up CMP tomorrow. 08/04/2018 Patient denied any complaints of abdominal pain today. Able to tolerate oral diet. Otherwise H was found to have elevated bilirubin level 4.7 and related liver enzymes as well. No nausea vomiting. No fever no chills. No chest pain or shortness of breath. We will follow CMP tomorrow and anticipate discharge in next 24 hours with improvement in levels. General surgery and GI is following. Current medications reviewed. Active Medications Aspirin (Aspirin) 81 mg PO DAILY [facility] Last Admin: 08/01/18 08:01 Dose: 81 mg Buspirone HCl (Buspar) 7.5 mg PO BID [facility] Last Admin: 08/01/18 19:49 Dose: 7.5 mg Cyanocobalamin (Vitamin B-12) 1,000 mcg PO 1200 [facility] Last Admin: 08/01/18 08:01 Dose: 1,000 mcg Diphenhydramine HCl (Benadryl) 25 mg PO QID PRN PRN Reason: itching Last Admin: 07/30/18 20:44 Dose: 25 mg Docusate Sodium (Colace) 100 mg PO BID [facility] Last Admin: 08/01/18 19:48 Dose: 100 mg Hydromorphone HCl (Dilaudid) 1 mg IVP Q3HR PRN PRN Reason: Severe Pain Last Admin: 07/30/18 15:02 Dose: 1 mg Sodium Chloride (Saline 0.9%) 1,000 mls @ 75 mls/hr IV .[id number] [facility] Last Admin: 08/01/18 12:34 Dose: Not Given Lactated Ringer's (Lactated Ringers) 1,000 mls @ 20 mls/hr IV .Q24H [facility] Last Admin: 08/01/18 21:58 Dose: Not Given Insulin Aspart (Novolog) 0 unit SQ ACHS [facility]; Protocol Last Admin: 08/01/18 20:55 Dose: 3 unit Levothyroxine Sodium (Synthroid) 25 mcg PO 0630 [facility] Last Admin: 08/01/18 05:49 Dose: 25 mcg Lisinopril (Zestril) 5 mg PO DAILY [facility] Last Admin: 08/01/18 08:01 Dose: 5 mg Memantine (Namenda) 10 mg PO DAILY [facility] Last Admin: 08/01/18 08:01 Dose: 10 mg Metoprolol Tartrate (Lopressor) 25 mg PO BID [facility] Last Admin: 08/01/18 19:49 Dose: 25 mg Naloxone HCl (Narcan) 0.2 mg IV Q2M PRN PRN Reason: Opioid Reversal Ondansetron HCl (Zofran) 4 mg IVP Q8HR PRN PRN Reason: Nausea And Vomiting Oxybutynin Chloride (Ditropan Xl) 10 mg PO DAILY [facility] Last Admin: 08/01/18 08:46 Dose: 10 mg Pantoprazole Sodium (Protonix) 40 mg PO AC-BRKFST [facility] Last Admin: 08/01/18 08:01 Dose: 40 mg Polyethylene Glycol (Miralax) 17 gm PO DAILY [facility] Last Admin: 08/01/18 08:01 Dose: 17 gm Quetiapine Fumarate (Seroquel) 25 mg PO HS [facility] Last Admin: 08/01/18 19:49 Dose: 25 mg Zinc Acetate/Diphenhydramine (Benadryl Cream) 1 applic TOPICAL QID PRN PRN Reason: Itching Last Admin: 07/28/18 20:30 Dose: 1 applic Objective - Vital Signs Vital signs: Vital Signs Temp 98.3 F 08/04/18 15:00 Pulse 68 08/04/18 15:00 Resp 20 08/04/18 15:00 BP 128/69 08/04/18 15:00 Pulse Ox 100 08/04/18 15:00 Intake & Output 08/04/18 08/04/18 08/05/18 06:59 18:59 06:59 Intake Total 400 320 Balance 400 320 Weight 65 kg Intake: Oral 400 320 Other: Voiding Method Toilet Toilet # Voids 3 3 - Exam PHYSICAL EXAMINATION: Patient is lying in the bed comfortably, no acute distress, awake alert and oriented.. HEENT: Normocephalic. Neck is supple. Pupils reactive. Nostrils clear. Oral cavity is moist. Ears reveal no drainage. Neck reveals no JVD, carotid bruits, or thyromegaly. CHEST EXAMINATION: Trachea is central. Symmetrical expansion. Lung larson clear to auscultation and percussion. CARDIAC: Normal S1, S2 with no gallops. No murmurs ABDOMEN: Soft. Right upper quadrant mild tenderness. Surgical site intact. Bowel sounds diminished. No organomegaly. No abdominal bruits. Extremities: reveal no edema. No clubbing or cyanosis Neurologically awake, alert, oriented x3 with well-coordinated movements. No focal deficits noted Skin: No rash or skin lesions. Psychiatric: Coperative. Nonsuicidal Musculoskeletal: No joint swelling or deformity. Normal range of motion. - Labs CBC & Chem 7: 01/13/19 08:12 08/04/18 08:12 Labs: Abnormal Lab Results - Last 24 Hours (Table) 08/04/18 08/04/18 08/04/18 Range/Units 07:18 08:12 11:54 Sodium 136 L (137-145) mmol/L Glucose 220 H (74-99) mg/dL POC Glucose (mg/dL) 187 H 158 H (75-99) mg/dL Total Bilirubin 4.7 H (0.2-1.3) mg/dL AST 260 H (14-36) U/L ALT 128 H (9-52) U/L Alkaline Phosphatase 271 H (38-126) U/L Albumin 2.9 L (3.5-5.0) g/dL 08/04/18 08/04/18 Range/Units 17:04 20:40 Sodium (137-145) mmol/L Glucose (74-99) mg/dL POC Glucose (mg/dL) 150 H 111 H (75-99) mg/dL Total Bilirubin (0.2-1.3) mg/dL AST (14-36) U/L ALT (9-52) U/L Alkaline Phosphatase (38-126) U/L Albumin (3.5-5.0) g/dL Assessment and Plan Assessment: Acute cholecystitis with cholelithiasis. Status post laparoscopic cholecystectomy.07/30/2018 choledocholithiasis status post ERCP and stone removal and sphincterotomy on 06/2019.. Increases AST and ALT and hyperbilirubinemia Hypertension Paroxysmal atrial fibrillation on aspirin Dementia Diabetes type 2 Hypothyroidism Patient is full code Plan: patient will be continued on IV fluids and pain medications. Clear liquid diet and advance as tolerated. General surgery and GI is following. Continue the current management and further recommendations based on the clinical course. Time with Patient: Greater than 30
[2018-08-04] MEDS: QUEtiapine 25 MG TAB PO SCH (21:14)
[2018-08-04] MEDS: LACTATED RINGERS 1,000 ML IV SCH (21:19)
[2018-08-05] MEDS: LEVOTHYROXINE 25 MCG TAB PO SCH (05:53)
[2018-08-05 07:08] LABS: Glucose,Whole Blood 196 mg/dL (75-99)
[2018-08-05] MEDS: DOCUSATE 100 MG CAP PO SCH ×2 (07:36→21:30)
[2018-08-05] MEDS: LISINOPRIL 5 MG TAB PO SCH (07:36)
[2018-08-05] MEDS: busPIRone HCl 5 MG TAB PO SCH ×2 (07:36→21:30)
[2018-08-05] MEDS: METOPROLOL TARTRATE 25 MG TAB PO SCH ×2 (07:36→21:30)
[2018-08-05] MEDS: MEMANTINE 10 MG TAB PO SCH (07:36)
[2018-08-05] MEDS: POLYETHYLENE GLYCOL 3350 17 GM POWD.PACK PO SCH ×2 (07:37→07:42)
[2018-08-05] MEDS: PANTOPRAZOLE 40 MG TABLET PO SCH (07:37)
[2018-08-05] MEDS: ASPIRIN 81 MG PO SCH (07:37)
[2018-08-05] MEDS: INSULIN ASPART 100 UNIT/ML 1 ML 10 ML VIAL SQ SCH ×4 (07:39→21:30)
[2018-08-05] MEDS: OXYBUTYNIN 10 MG TAB.ER.24 PO SCH (07:40)
[2018-08-05 07:50] LABS: Basophils # (A) 0.1 k/uL (0-0.2); Basophils % (A) 1 %; Eosinophils # (A) 0.9 k/uL (0-0.7); Eosinophils % (A) 12 %; HCT 36.1 % (34.0-46.0); HGB 11.9 gm/dL (11.4-16.0); Lymphocytes # (A) 1.4 k/uL (1.0-4.8); Lymphocytes % (A) 20 %; MCH 29.8 pg (25.0-35.0); MCV 90.4 fL (80.0-100.0); Mean Platelet Volume 7.4; Monocytes # (A) 0.6 k/uL (0-1.0); Monocytes % (A) 9 %; Neutrophils # (A) 3.9 k/uL (1.3-7.7); Neutrophils % (A) 55 %; Platelet Count 257 k/uL (150-450); RDW 13.5 % (11.5-15.5); WBC 7.1 k/uL (3.8-10.6)
[2018-08-05 07:57] VITALS: RESP 18
[2018-08-05 08:02] LABS: Albumin 3.1 g/dL (3.5-5.0); Bilirubin, Conjugated 0.5 mg/dL (0.0-0.3); Bilirubin, Delta 1.9 mg/dL (0.0-0.2); Bilirubin,Unconjugated 0.9 mg/dL (0.0-1.1); Calcium 8.8 mg/dL (8.4-10.2); Potassium 4.3 mmol/L (3.5-5.1); Total Bilirubin 3.3 mg/dL (0.2-1.3); Total Protein 6.5 g/dL (6.3-8.2)
--- NOTE | 2018-08-05 11:01 | P.PN ---
Subjective Progress Note Date: 08/05/18 73-year-old female who underwent laparoscopic cholecystectomy on 07/30/2018. She underwent ERCP on 08/03/2018. Patient reports her pain is tolerable. Patient is passing flatus and has had a bowel movement since surgery. Bilirubin today is 3.3 down from 4.7. AST 202, down from 260. ALT 142, from 128. She has been tolerating oral intake without nausea or vomiting. She is anxious to be discharged home. PHYSICAL EXAM: GENERAL: This is a 73-year-old female in no apparent distress at the time of examination. Pleasant and cooperative. RESPIRATORY: Clear to auscultation. Equal expansion. CARDIOVASCULAR: Regular rate and rhythm. S1 and S2 noted. GASTROINTESTINAL: Soft and round. No distention noted. Bowel sounds present x 4 quadrants. INTEGUMENTARY: No cyanosis. No jaundice. No rashes noted. No cellulitis noted. EXTREMITIES: 2+ peripheral pulses. No evidence of peripheral edema. NEUROLOGIC: Cranial nerves II-XII grossly intact. PSYCHIATRIC: Awake, alert, and oriented X 3. Appropriate affect. Intact judgement and insight. ASSESSMENT: Cholelithiasis, status post laparoscopic cholecystectomy Transaminitis, improving Hyperbilirubinemia Leukocytosis, improving Choledocholithiasis, s/p ERCP with sphincterotomy and balloon sweep of the common bile duct PLAN: Continue current diet. Patient is stable from a surgical standpoint. Nurse practitioner note has been reviewed by physician. Signing provider agrees with the documented findings, assessment, and plan of care. Objective - Vital Signs Vital signs: Vital Signs Temp 98.7 F 08/05/18 07:00 Pulse 83 08/05/18 07:00 Resp 18 08/05/18 07:00 BP 131/63 08/05/18 07:00 Pulse Ox 100 08/05/18 07:00 Intake & Output 08/04/18 08/05/18 08/05/18 18:59 06:59 18:59 Intake Total 320 Balance 320 Intake: Oral 320 Other: Voiding Method Toilet # Voids 3 1 - Labs CBC & Chem 7: 08/05/18 07:19 08/05/18 07:19 Labs: Abnormal Lab Results - Last 24 Hours (Table) 08/04/18 08/04/18 08/04/18 Range/Units 11:54 17:04 20:40 Eosinophils # (0-0.7) k/uL Glucose (74-99) mg/dL POC Glucose (mg/dL) 158 H 150 H 111 H (75-99) mg/dL Total Bilirubin (0.2-1.3) mg/dL Conjugated Bilirubin (0.0-0.3) mg/dL Delta Bilirubin (0.0-0.2) mg/dL AST (14-36) U/L ALT (9-52) U/L Alkaline Phosphatase (38-126) U/L Albumin (3.5-5.0) g/dL 08/05/18 08/05/18 08/05/18 Range/Units 07:06 07:19 07:19 Eosinophils # 0.9 H (0-0.7) k/uL Glucose 213 H (74-99) mg/dL POC Glucose (mg/dL) 196 H (75-99) mg/dL Total Bilirubin 3.3 H (0.2-1.3) mg/dL Conjugated Bilirubin 0.5 H (0.0-0.3) mg/dL Delta Bilirubin 1.9 H (0.0-0.2) mg/dL AST 202 H (14-36) U/L ALT 142 H (9-52) U/L Alkaline Phosphatase 289 H (38-126) U/L Albumin 3.1 L (3.5-5.0) g/dL
[2018-08-05] MEDS: SODIUM CHLORIDE 0.9% 1,000 ML IV SCH (11:32)
--- NOTE | 2018-08-05 11:59 | P.PN ---
Subjective Acute cholecystitis and cholelithiasis Status post laparoscopic cholecystectomy Patient is a 73 year old female admitted to hospital with right upper quadrant abdominal pain. Patient does have acute cholecystitis and cholelithiasis. Patient is currently status post laparoscopic cholecystectomy. 07/30/2018 Patient currently denied any complaints of chest pain or shortness of breath.. Abdominal soreness at the surgical incision site. No fever no chills. Does have some nausea. No vomiting. No diarrhea. No flatus or bowel movement yet. Hepatitis panel is negative. 07/31/2018 Patient says that her abdominal pain is better. Tolerating clear liquids. Otherwise no bowel movement yet Bilirubin is slightly elevated from 1.3-2.8 today. No fever no chills. No nausea vomiting. No chest pain or shortness breath. Anticipate discharged tomorrow once the bilirubin is trending down. Liver enzymes are stable. 08/01/2018 Patient denied any worsening abdominal pain. Otherwise bilirubin is slightly improved to 2.6 today. Due to marginally improved liver enzymes and still having hyperbilirubinemia, ultrasound of the abdomen was requested. Showed no free fluid. No dilated ducts. Patient is also complaining of constipation. No fever no chills. No nausea vomiting. No headache or dizziness or lightheadedness. 08/02/2018 Patient denied any abdominal pain. No nausea vomiting. Tolerating oral diet. Otherwise patient is still having hyperbilirubinemia improving very slowly 2.2 today. GI is planning for ERCP tomorrow. Patient did have a small bowel movement today. No fever no chills. No headache or dizziness or lightheadedness. No chest pain or shortness breath. 08/03/2018 Patient had ERCP today,1. ERCP with sphincterotomy and balloon sweep of the common bile duct. 2. Choledocholithiasis, with successful removal of the bile duct stones with sphincterotomy and balloon sweep. Patient is complaining of right upper quadrant pain. Otherwise no nausea vomiting. Tolerating oral diet and advance as tolerated. No fever no chills. Follow-up CMP tomorrow. 08/04/2018 Patient denied any complaints of abdominal pain today. Able to tolerate oral diet. Otherwise H was found to have elevated bilirubin level 4.7 and related liver enzymes as well. No nausea vomiting. No fever no chills. No chest pain or shortness of breath. We will follow CMP tomorrow and anticipate discharge in next 24 hours with improvement in levels. General surgery and GI is following. 08/05/2018 Patient was lying in bed comfortable not in distress. However she looks confused to time place and person, patient has dementia at baseline. She denies chest pain or dyspnea. No abdominal pain. However her liver enzymes are trending up slowly. Patient was kept nothing by mouth overnight for possible gastrointestinal intervention by GI team like repeating ERCP. Vitas looks stable. Total bilirubin is trending down from 4.7 down to 3.3. AST is coming down from 260 down to 202. ALT went up a little bit from 128 up to 142 Also call physical and the Patient off therapy evaluation and increased movement Objective - Vital Signs Vital signs: Vital Signs Temp 98.7 F 08/05/18 07:00 Pulse 83 08/05/18 07:00 Resp 18 08/05/18 07:00 BP 131/63 08/05/18 07:00 Pulse Ox 100 08/05/18 07:00 Intake & Output 08/04/18 08/05/18 08/05/18 18:59 06:59 18:59 Intake Total 320 Balance 320 Intake: Oral 320 Other: Voiding Method Toilet # Voids 3 1 - Exam PHYSICAL EXAMINATION: -Patient is lying in the bed comfortably, no acute distress, awake alert and she is confused to time place and person. HEENT: Normocephalic. Neck is supple. Pupils reactive. Nostrils clear. Oral cavity is moist. Ears reveal no drainage. Neck reveals no JVD, carotid bruits, or thyromegaly. CHEST EXAMINATION: Trachea is central. Symmetrical expansion. Lung larson clear to auscultation and percussion. CARDIAC: Normal S1, S2 with no gallops. No murmurs ABDOMEN: Soft. Right upper quadrant mild tenderness. Surgical site intact. Bowel sounds diminished. No organomegaly. No abdominal bruits. Extremities: reveal no edema. No clubbing or cyanosis Neurologically awake, alert, oriented x3 with well-coordinated movements. No focal deficits noted Skin: No rash or skin lesions. Psychiatric: Coperative. Nonsuicidal Musculoskeletal: No joint swelling or deformity. Normal range of motion. - Labs CBC & Chem 7: 08/05/18 07:19 08/05/18 07:19 Labs: Abnormal Lab Results - Last 24 Hours (Table) 08/04/18 08/04/18 08/04/18 Range/Units 11:54 17:04 20:40 Eosinophils # (0-0.7) k/uL Glucose (74-99) mg/dL POC Glucose (mg/dL) 158 H 150 H 111 H (75-99) mg/dL Total Bilirubin (0.2-1.3) mg/dL Conjugated Bilirubin (0.0-0.3) mg/dL Delta Bilirubin (0.0-0.2) mg/dL AST (14-36) U/L ALT (9-52) U/L Alkaline Phosphatase (38-126) U/L Albumin (3.5-5.0) g/dL 08/05/18 08/05/18 08/05/18 Range/Units 07:06 07:19 07:19 Eosinophils # 0.9 H (0-0.7) k/uL Glucose 213 H (74-99) mg/dL POC Glucose (mg/dL) 196 H (75-99) mg/dL Total Bilirubin 3.3 H (0.2-1.3) mg/dL Conjugated Bilirubin 0.5 H (0.0-0.3) mg/dL Delta Bilirubin 1.9 H (0.0-0.2) mg/dL AST 202 H (14-36) U/L ALT 142 H (9-52) U/L Alkaline Phosphatase 289 H (38-126) U/L Albumin 3.1 L (3.5-5.0) g/dL Assessment and Plan Assessment: Acute cholecystitis with cholelithiasis. Status post laparoscopic cholecystectomy.07/30/2018 choledocholithiasis status post ERCP and stone removal and sphincterotomy on 06/2019.. Increases AST and ALT and hyperbilirubinemia Hypertension Paroxysmal atrial fibrillation on aspirin Dementia Diabetes type 2 Hypothyroidism Patient is full code Plan: patient will be continued on IV fluids and pain medications. Clear liquid diet and advance as tolerated. General surgery and GI is following. Continue the current management and further recommendations based on the clinical course.
[2018-08-05] MEDS: CYANOCOBALAMIN 500 MCG TAB PO SCH (12:10)
[2018-08-05 12:30] LABS: Glucose,Whole Blood 229 mg/dL (75-99)
[2018-08-05 17:36] LABS: Glucose,Whole Blood 326 mg/dL (75-99)
--- NOTE | 2018-08-05 20:10 | P.PN ---
Subjective Progress Note Date: 08/05/18 Principal diagnosis: Abdominal pain, cholelithiasis, elevated liver enzymes, choledocholithiasis Patient lying in bed, denying any abdominal pain. She has tolerated her diet. Objective - Vital Signs Vital signs: Vital Signs Temp 96.4 F L 08/05/18 14:42 Pulse 74 08/05/18 14:42 Resp 18 08/05/18 14:42 BP 131/62 08/05/18 14:42 Pulse Ox 98 08/05/18 14:42 Intake & Output 08/05/18 08/05/18 08/06/18 06:59 18:59 06:59 Other: # Voids 1 3 - Exam On physical examination, patient appears comfortable in no apparent distress. HEAD: Normocephalic, atraumatic. EYES: Minimal scleral icterus. No conjunctival injection. MOUTH: No lesions, tongue midline. NECK: Trachea midline, no gross abnormalities. CHEST: Clear to auscultation with no wheezing or rhonchi appreciated. HEART: Regular rate and rhythm. ABDOMEN: Soft, obese. Bowel sounds are positive. No organomegaly. No guarding or rigidity. EXTREMITIES: No pedal edema. SKIN: No rashes, minimal jaundice. NEUROLOGIC: Alert and oriented. No focal deficits. - Labs CBC & Chem 7: 08/05/18 07:19 08/05/18 07:19 Labs: Abnormal Lab Results - Last 24 Hours (Table) 08/04/18 08/05/18 08/05/18 Range/Units 20:40 07:06 07:19 Eosinophils # (0-0.7) k/uL Glucose 213 H (74-99) mg/dL POC Glucose (mg/dL) 111 H 196 H (75-99) mg/dL Total Bilirubin 3.3 H (0.2-1.3) mg/dL Conjugated Bilirubin 0.5 H (0.0-0.3) mg/dL Delta Bilirubin 1.9 H (0.0-0.2) mg/dL AST 202 H (14-36) U/L ALT 142 H (9-52) U/L Alkaline Phosphatase 289 H (38-126) U/L Albumin 3.1 L (3.5-5.0) g/dL 08/05/18 08/05/18 08/05/18 Range/Units 07:19 12:27 17:34 Eosinophils # 0.9 H (0-0.7) k/uL Glucose (74-99) mg/dL POC Glucose (mg/dL) 229 H 326 H (75-99) mg/dL Total Bilirubin (0.2-1.3) mg/dL Conjugated Bilirubin (0.0-0.3) mg/dL Delta Bilirubin (0.0-0.2) mg/dL AST (14-36) U/L ALT (9-52) U/L Alkaline Phosphatase (38-126) U/L Albumin (3.5-5.0) g/dL Assessment and Plan (1) Elevated liver enzymes Narrative/Plan: Elevated liver enzymes. The patient is status post successful cholecystectomy, and ERCP with sphincterotomy and balloon sweep with choledocholithiasis noted. Liver enzymes remain elevated today, but are trending down. Current Visit: Yes Status: Acute Code(s): R74.8 - ABNORMAL LEVELS OF OTHER SERUM ENZYMES SNOMED Code(s): 331176900 (2) Cholelithiasis Current Visit: Yes Status: Acute Code(s): K80.20 - CALCULUS OF GALLBLADDER W /O CHOLECYSTITIS W/O OBSTRUCTION SNOMED Code(s): 672647972 (3) Choledocholithiasis Narrative/Plan: Patient is status post successful ERCP with sphincterotomy and balloon sweep productive of bile duct stone. Current Visit: Yes Status: Acute Code(s): K80.50 - CALCULUS OF BILE DUCT W/ O CHOLANGITIS OR CHOLECYST W/O OBST SNOMED Code(s): 682373116 Plan: Supportive care Appreciate surgical recommendations Monitor liver enzymes Suspect that elevation in liver enzymes were secondary to ERCP yesterday, however will repeat liver enzymes to ensure they continue to trend down Thank you for allowing us to participate in the care of this patient
[2018-08-05 20:58] LABS: Glucose,Whole Blood 158 mg/dL (75-99)
[2018-08-05] MEDS: LACTATED RINGERS 1,000 ML IV SCH (21:07)
[2018-08-05] MEDS: QUEtiapine 25 MG TAB PO SCH (21:30)
[2018-08-06] MEDS: HEPARIN SODIUM,PORCINE 5,000 UNIT/ML 1 ML VIAL SQ SCH ×2 (00:21→08:13)
[2018-08-06] MEDS: SODIUM CHLORIDE 0.9% 1,000 ML IV SCH ×2 (00:22→11:20)
[2018-08-06] MEDS: LEVOTHYROXINE 25 MCG TAB PO SCH (06:11)
[2018-08-06 07:11] LABS: Glucose,Whole Blood 197 mg/dL (75-99)
[2018-08-06 08:04] VITALS: BP 142/61; PULSE 75; TEMP 97.8
[2018-08-06] MEDS: busPIRone HCl 5 MG TAB PO SCH (08:12)
[2018-08-06] MEDS: ASPIRIN 81 MG PO SCH (08:12)
[2018-08-06] MEDS: INSULIN ASPART 100 UNIT/ML 1 ML 10 ML VIAL SQ SCH ×2 (08:12→12:45)
[2018-08-06] MEDS: PANTOPRAZOLE 40 MG TABLET PO SCH (08:12)
[2018-08-06] MEDS: DOCUSATE 100 MG CAP PO SCH (08:13)
[2018-08-06] MEDS: LISINOPRIL 5 MG TAB PO SCH (08:13)
[2018-08-06] MEDS: OXYBUTYNIN 10 MG TAB.ER.24 PO SCH (08:14)
[2018-08-06] MEDS: POLYETHYLENE GLYCOL 3350 17 GM POWD.PACK PO SCH (08:14)
[2018-08-06] MEDS: METOPROLOL TARTRATE 25 MG TAB PO SCH (08:14)
[2018-08-06] MEDS: MEMANTINE 10 MG TAB PO SCH (08:14)
[2018-08-06 09:29] LABS: Albumin 3.2 g/dL (3.5-5.0); Bilirubin, Delta 1.2 mg/dL (0.0-0.2); Bilirubin,Unconjugated 0.9 mg/dL (0.0-1.1); Total Bilirubin 2.1 mg/dL (0.2-1.3); Total Protein 6.6 g/dL (6.3-8.2)
--- NOTE | 2018-08-06 10:19 | P.PN ---
Subjective Progress Note Date: 08/06/18 Principal diagnosis: elevated liver enzymes abdominal pain Feels well. Denies abdominal pain. All of tease improved total bilirubin 2.1. AST 90. ALT 105. AP 239. Afebrile. Tolerating diet. Objective - Vital Signs Vital signs: Vital Signs Temp 97.8 F 08/06/18 07:00 Pulse 75 08/06/18 07:00 Resp 18 08/06/18 07:00 BP 142/61 08/06/18 07:00 Pulse Ox 99 08/06/18 07:00 Intake & Output 08/05/18 08/06/18 08/06/18 18:59 06:59 18:59 Other: # Voids 3 3 1 # Bowel Movements 1 - Exam General appearance: The patient is alert, oriented, in no acute distress. HET: Head is normocephalic and atraumatic. Pupils are equal and reactive. Sclerae slightly icteric. Oropharynx is clear without lesions. Neck: Supple without lymphadenopathy. Trachea midline. Heart: S1 S2. Regular rate and rhythm. Lungs: No crackles or wheezes are heard. Abdomen: Soft, scopic incisions clean without drainage nontender, nondistended with bowel sounds. No peritoneal signs. No palpable organomegaly or masses. Extremities: Normal skin color and turgor. No cyanosis, rash, ulceration, clubbing, or edema. Radial and pedal pulses are 2/4 bilaterally. Neurological: No focal deficits. Strength and sensation are grossly intact. - Labs CBC & Chem 7: 08/05/18 07:19 08/05/18 07:19 Labs: Abnormal Lab Results - Last 24 Hours (Table) 08/05/18 08/05/18 08/05/18 Range/Units 12:27 17:34 20:56 POC Glucose (mg/dL) 229 H 326 H 158 H (75-99) mg/dL 08/06/18 Range/Units 07:07 POC Glucose (mg/dL) 197 H (75-99) mg/dL Assessment and Plan (1) Elevated liver enzymes Narrative/Plan: Status post ERCP sphincterotomy findings of choledocholithiasis balloon stone extraction Current Visit: Yes Status: Acute Code(s): R74.8 - ABNORMAL LEVELS OF OTHER SERUM ENZYMES SNOMED Code(s): 980605526 (2) S/P laparoscopic cholecystectomy Current Visit: Yes Status: Acute Code(s): Z90.49 - ACQUIRED ABSENCE OF OTHER SPECIFIED PARTS OF DIGESTIVE TRACT SNOMED Code(s): 203571075 (3) Cholelithiasis Current Visit: Yes Status: Acute Code(s): K80.20 - CALCULUS OF GALLBLADDER W /O CHOLECYSTITIS W/O OBSTRUCTION SNOMED Code(s): 490896956 Plan: 1. Agreeable for discharge. Recommend CMP in 3-5 days. Follow PCP after discharge. Assessment and plan a care discussed with Dr. Granado
[2018-08-06] MEDS: CYANOCOBALAMIN 500 MCG TAB PO SCH (11:19)
[2018-08-06 12:27] LABS: Glucose,Whole Blood 209 mg/dL (75-99)
[2018-08-06] MEDS ORDERED: HYDROmorphone 0.5 MG/0.5 ML SYRINGE IVP PRN (13:00)
--- NOTE | 2018-08-06 13:02 | P.PN ---
Subjective Progress Note Date: 08/06/18 73-year-old female who underwent laparoscopic cholecystectomy on 07/30/2018. She underwent ERCP on 08/03/2018. Patient reports her pain is tolerable. Patient is passing flatus and has had a bowel movement since surgery. She has been tolerating oral intake without nausea or vomiting. She is anxious to be discharged home. PHYSICAL EXAM: GENERAL: This is a 73-year-old female in no apparent distress at the time of examination. Pleasant and cooperative. RESPIRATORY: Clear to auscultation. Equal expansion. CARDIOVASCULAR: Regular rate and rhythm. S1 and S2 noted. GASTROINTESTINAL: Soft and round. No distention noted. Bowel sounds present x 4 quadrants. INTEGUMENTARY: No cyanosis. No jaundice. No rashes noted. No cellulitis noted. EXTREMITIES: 2+ peripheral pulses. No evidence of peripheral edema. NEUROLOGIC: Cranial nerves II-XII grossly intact. PSYCHIATRIC: Awake, alert, and oriented X 3. Appropriate affect. Intact judgement and insight. ASSESSMENT: Cholelithiasis, status post laparoscopic cholecystectomy Transaminitis, improving Hyperbilirubinemia Leukocytosis, improving Choledocholithiasis, s/p ERCP with sphincterotomy and balloon sweep of the common bile duct PLAN: Continue current diet. Patient is stable for discharge from a surgical standpoint. We will sign off. Nurse practitioner note has been reviewed by physician. Signing provider agrees with the documented findings, assessment, and plan of care. Objective - Vital Signs Vital signs: Vital Signs Temp 97.8 F 08/06/18 07:00 Pulse 75 08/06/18 07:00 Resp 18 08/06/18 07:00 BP 142/61 08/06/18 07:00 Pulse Ox 99 08/06/18 07:00 Intake & Output 08/05/18 08/06/18 08/06/18 18:59 06:59 18:59 Other: # Voids 3 3 1 # Bowel Movements 1 - Labs CBC & Chem 7: 08/05/18 07:19 08/05/18 07:19 Labs: Abnormal Lab Results - Last 24 Hours (Table) 08/05/18 08/05/18 08/05/18 Range/Units 12:27 17:34 20:56 POC Glucose (mg/dL) 229 H 326 H 158 H (75-99) mg/dL Total Bilirubin (0.2-1.3) mg/dL Delta Bilirubin (0.0-0.2) mg/dL AST (14-36) U/L ALT (9-52) U/L Alkaline Phosphatase (38-126) U/L Albumin (3.5-5.0) g/dL 08/06/18 08/06/18 Range/Units 07:07 08:27 POC Glucose (mg/dL) 197 H (75-99) mg/dL Total Bilirubin 2.1 H (0.2-1.3) mg/dL Delta Bilirubin 1.2 H (0.0-0.2) mg/dL AST 90 H (14-36) U/L ALT 105 H (9-52) U/L Alkaline Phosphatase 239 H (38-126) U/L Albumin 3.2 L (3.5-5.0) g/dL
--- NOTE | 2018-08-06 14:53 | P.DS ---
Providers Date of admission: 07/26/18 15:39 Attending physician: Juan Sawant MD Consults: 07/26/18 15:37 Consult Physician Routine Consulting Provider: Antonio Andrew Consult Reason/Comments: Jaundice, cholelithiasis Do you want consulting provider notified?: Yes 07/26/18 15:39 Consult Physician Routine Consulting Provider: Maxim Gerber Consult Reason/Comments: Cholelithiasis, jaundice Do you want consulting provider notified?: Yes 07/26/18 18:10 Consult Physician Routine Consulting Provider: Shree Martell Consult Reason/Comments: pt states she would rather Do you want consulting provider notified?: Yes Primary care physician: Carl Russell Hospital Course: Patient is a 73 year old female admitted to hospital with right upper quadrant abdominal pain. Patient does have acute cholecystitis and cholelithiasis. Patient is currently status post laparoscopic cholecystectomy on 07/30/2018. She underwent ERCP on 08/03/2018: sphincterotomy and balloon sweep of the common bile duct with successful removal of the bile duct stones. Elevated liver enzymes were trending down toward they are not normally need to be followed as an outpatient. Patient abdominal pain is resolved and on the day of discharge patient denies abdominal pain. No nausea vomiting. She is having bowel movement. Patient has been cleared by both consent urology and surgery team for discharge Problems and management plan was discussed with the patient and she verbalized understanding and acceptance Patient was found stable and can be discharged home however she needs follow-up as an outpatient. appointments were made with pcp, surgery and GI. i discussed the case with her pcp and he kindly is going to recheck her liver function tests Gen: patient is a AAOx3, no distress CVS: S1-S2, RRR, no murmur Lungs: B/L CTA, no wheezing Abdomen: soft, no distention, no tenderness, positive bowel sounds Extremity: no leg edema or induration Time spent more than 35 minutes Patient Condition at Discharge: Stable Plan - Discharge Summary Discharge Rx Participant: No New Discharge Prescriptions: New HYDROcodone/APAP 7.5-325MG [[place] 7.5-325] 1 tab PO Q4H PRN 3 Days #18 tab PRN Reason: Pain Pantoprazole [Protonix] 40 mg PO AC-BRKFST #14 tablet. Continue Memantine [Namenda] 10 mg PO DAILY tab Levothyroxine Sodium [Synthroid] 25 mcg PO DAILY Cyanocobalamin (Vitamin B-12) [Vitamin B-12] 1,000 mcg PO DAILY Aspirin 81 mg PO DAILY #30 chew Lisinopril [Zestril] 5 mg PO DAILY #30 tab Metoprolol Tartrate [Lopressor] 25 mg PO BID Magnesium Hydroxide [Milk of Magnesia] 2,400 mg PO DAILY PRN PRN Reason: Diarrhea Polyethylene Glycol 3350 [Miralax] 17 gm PO DAILY Acetaminophen [Tylenol] 650 mg PO Q4H PRN PRN Reason: Pain Or Fever > 100.5 Insulin Aspart [NovoLOG (formulary)] See Protocol SQ AC-TID diphenhydrAMINE & Zinc Cream [Benadryl Cream] 1 applic TOPICAL QID PRN PRN Reason: Itching busPIRone HCL [Buspar] 7.5 mg PO BID Tolterodine ER [Detrol LA] 4 mg PO DAILY Docusate [Colace] 100 mg PO DAILY QUEtiapine [SEROquel] 25 mg PO HS Mylanta 15 ml PO BID PRN PRN Reason: Indigestion Discontinued Loperamide [Imodium] 2 mg PO TID PRN PRN Reason: Diarrhea Discharge Medication List Memantine [Namenda] 10 mg PO DAILY tab 08/01/17 [Rx] Cyanocobalamin (Vitamin B-12) [Vitamin B-12] 1,000 mcg PO DAILY 09/11/17 [ History] Levothyroxine Sodium [Synthroid] 25 mcg PO DAILY 09/11/17 [History] Aspirin 81 mg PO DAILY #30 chew 09/14/17 [Rx] Lisinopril [Zestril] 5 mg PO DAILY #30 tab 09/14/17 [Rx] Metoprolol Tartrate [Lopressor] 25 mg PO BID 10/02/17 [History] Acetaminophen [Tylenol] 650 mg PO Q4H PRN 07/26/18 [History] Docusate [Colace] 100 mg PO DAILY 07/26/18 [History] Insulin Aspart [NovoLOG (formulary)] See Protocol SQ AC-TID 07/26/18 [History] Magnesium Hydroxide [Milk of Magnesia] 2,400 mg PO DAILY PRN 07/26/18 [History] Mylanta 15 ml PO BID PRN 07/26/18 [History] Polyethylene Glycol 3350 [Miralax] 17 gm PO DAILY 07/26/18 [History] QUEtiapine [SEROquel] 25 mg PO HS 07/26/18 [History] Tolterodine ER [Detrol LA] 4 mg PO DAILY 07/26/18 [History] busPIRone HCL [Buspar] 7.5 mg PO BID 07/26/18 [History] diphenhydrAMINE & Zinc Cream [Benadryl Cream] 1 applic TOPICAL QID PRN 07/26/18 [History] HYDROcodone/APAP 7.5-325MG [[place] 7.5-325] 1 tab PO Q4H PRN 3 Days #18 tab 08/02 [Rx] Pantoprazole [Protonix] 40 mg PO AC-BRKFST #14 tablet. 08/06/18 [Rx] Follow up Appointment(s)/Referral(s): [facility], [NON-STAFF] - Jaspal Granado MD [STAFF PHYSICIAN] - 08/20/18 8:45 am Maxim Gerber MD [STAFF PHYSICIAN] - 08/13/18 3:30 pm Carl Russell MD [Primary Care Provider] - 08/08/18 (office to call you with appt. time.) Discharge Disposition: HOME WITH HOME HEALTH SERVICES
== END 2018-08-06 16:28 | disposition home health service (06) | DRG 419 ==
LOC: EC 11:38 → 4MS4W 15:39
PROVIDERS: ADMIT Internal Medicine; ATTEND Internal Medicine
PROC: 0FT44ZZ Resection of Gallbladder, Percutaneous Endoscopic Approach (ICD-10-PCS; principal; 2018-07-30 10:30)
PROC: 0FC98ZZ Extirpation of Matter from Common Bile Duct, Via Natural or Artificial Opening Endoscopic (ICD-10-PCS; 2018-08-03 09:40)
DX: K80.67 Calculus of gallbladder and bile duct with acute and chronic cholecystitis with obstruction (principal); I48.0 Paroxysmal atrial fibrillation; E11.9 Type 2 diabetes mellitus without complications; I11.9 Hypertensive heart disease without heart failure; F41.9 Anxiety disorder, unspecified; F32.9 Major depressive disorder, single episode, unspecified; F01.50 Vascular dementia, unspecified severity, without behavioral disturbance, psychotic disturbance, mood disturbance, and anxiety; K59.00 Constipation, unspecified; E03.9 Hypothyroidism, unspecified; Z79.82 Long term (current) use of aspirin; Z79.890 Hormone replacement therapy; Z79.4 Long term (current) use of insulin; Z79.899 Other long term (current) drug therapy; Z86.19 Personal history of other infectious and parasitic diseases; Z87.440 Personal history of urinary (tract) infections; Z81.8 Family history of other mental and behavioral disorders; Z80.42 Family history of malignant neoplasm of prostate; Z80.1 Family history of malignant neoplasm of trachea, bronchus and lung; Z83.79 Family history of other diseases of the digestive system; Z82.49 Family history of ischemic heart disease and other diseases of the circulatory system
CPT/HCPCS: 36415; 43262; 43264; 43277; 71046; 74328; 76705; 80053; 80074; 80076; 82150; 82248; 82550; 82553; 83036; 83690; 83735; 85025; 85610; 88304; 93005; 96361; 96365; 99285

== ENCOUNTER → 2018-11-08 | Outpatient (CLI) | payer MEDICARE, BC ==
--- NOTE | 2018-11-12 09:33 | MM ---
Reason for exam: screening (asymptomatic). Physical Findings: A clinical breast exam by your physician is recommended on an annual basis and results should be correlated with mammographic findings. MG Screening Mammo w CAD Bilateral CC and MLO view(s) were taken. No prior studies available for comparison. There are scattered fibroglandular densities. There is no discrete abnormality. ASSESSMENT: Benign, BI-RAD 2 RECOMMENDATION: Routine screening mammogram of both breasts in 1 year.
== END | disposition home or self-care (01) ==
LOC: RADMAMWWP 12:37
PROVIDERS: ATTEND Family Medicine
DX: Z12.31 Encounter for screening mammogram for malignant neoplasm of breast (principal)
CPT/HCPCS: 77067